=== PATIENT | male | born 1965 | race Caucasian/White ===

== ENCOUNTER 2017-09-21 15:30 | Inpatient (IN) | payer OTHER ==
[~2017-09-21] VITALS: Ht 182.9 cm; Wt 114.4 kg
[2017-09-21 15:54] VITALS: BP 115/82; PULSE 130; RESP 17; TEMP 100.3; O2SAT 100
[2017-09-21 15:55] VITALS: O2SAT 98
[2017-09-21] MEDS ORDERED: DILTIAZEM HCL 25 MG/5 ML VIAL IV PUSH ONE (17:00)
[2017-09-21] MEDS ORDERED: LORazepam 2 MG/ML VIAL IV PUSH ONE (17:15)
--- NOTE | 2017-09-21 17:43 | RADRPT ---
EXAM DATE/TIME: 09/21/2017 17:29 [facility] COMPARISON: No previous studies available for comparison. INDICATIONS : Palpitations. MEDICAL HISTORY : A-fib. SURGICAL HISTORY : None. ENCOUNTER: Initial ACUITY: 1 day PAIN SCORE: Non-responsive. LOCATION: Bilateral chest FINDINGS: There is mild streaky parenchymal opacity at the left lung base. Right lung is grossly clear. Cardiac contours are satisfactory for technique and projection. CONCLUSION: Mild left base parenchymal opacity Tien Narvaez MD on September 21, 2017 at 17:42 Board Certified Radiologist. This report was verified electronically.
[2017-09-21] MEDS: DILTIAZEM INJ 125 MG in SODIUM CHLORIDE 0.9% INJ 100 ML IV PRN (17:46)
[2017-09-21 17:52] LABS: AUTOMATED NEUTROPHIL # 6.6 TH/MM3 (1.8-7.7); BASOPHIL # 0.1 TH/MM3 (0-0.2); BASOPHIL % 0.8 % (0.0-2.0); EOSINOPHIL % 0.3 % (0.0-4.0); HEMATOCRIT 33.6 % (39.0-51.0); HEMOGLOBIN 11.6 GM/DL (13.0-17.0); LYMPH % 15.2 % (9.0-44.0); LYMPHOCYTE # 1.4 TH/MM3 (1.0-4.8); MEAN CELL VOLUME 106.6 FL (80.0-100.0); MEAN CORPUSCULAR HEMOGLOBIN 36.8 PG (27.0-34.0); MEAN CORPUSCULAR HGB CONC 34.6 % (32.0-36.0); MONO % 13.8 % (0.0-8.0); MONOCYTE # 1.3 TH/MM3 (0-0.9); NEUT % 69.9 % (16.0-70.0); PLATELET COUNT 176 TH/MM3 (150-450); RED BLOOD COUNT 3.16 MIL/MM3 (4.50-5.90); RED CELL DISTRIBUTION WIDTH 19.6 % (11.6-17.2); WHITE BLOOD COUNT 9.4 TH/MM3 (4.0-11.0)
[2017-09-21 18:02] LABS: INTERNATIONAL NORMALIZED RATIO 1.3 RATIO
[2017-09-21 18:05] LABS: ALT (GPT) 106 U/L (12-78)
[2017-09-21 18:07] VITALS: BP 110/71; PULSE 78; RESP 17; O2SAT 98
[2017-09-21] MEDS ORDERED: NICOTINE 21 MG/24 HR PATCH T-DERMAL ONE (18:30)
[2017-09-21] MEDS ORDERED: ALUMINUM/MAGNESIUM/SIMETH 30 ML CUP PO ONE (19:00)
[2017-09-21 19:02] LABS: AST (GOT) 142 U/L (15-37); BICARBONATE 21.5 MEQ/L (21.0-32.0); BLOOD UREA NITROGEN 14 MG/DL (7-18); CALCIUM 7.9 MG/DL (8.5-10.1); CHLORIDE 99 MEQ/L (98-107); CREATININE 0.99 MG/DL (0.60-1.30); GLOMERULAR FILTRATION RATE 79 ML/MIN (>89); GLUCOSE,RANDOM 119 MG/DL (74-106); SODIUM (NA) 129 MEQ/L (136-145)
--- NOTE | 2017-09-21 19:12 | PD ---
Physical Exam Date Seen by Provider: Sep 21, 2017 Time Seen by Provider: 19:10 Narrative Accepted in transfer of care from Dr. Jones Data Data Last Documented VS Vital Signs Date Time Temp Pulse Resp B/P (MAP) Pulse Ox O2 Delivery O2 Flow Rate FiO2 09/21/17 18:07 78 17 110/71 (84) 98 Room Air 09/21/17 15:54 100.3 Orders Orders Complete Blood Count With Diff (09/21/17 16:59) Comprehensive Metabolic Panel (09/21/17 16:59) Ckmb (Isoenzyme) Profile (09/21/17 16:59) Troponin I (09/21/17 16:59) Prothrombin Time / Inr (Pt) (09/21/17 16:59) Act Partial Throm Time (Ptt) (09/21/17 16:59) Urinalysis - C+S If Indicated (09/21/17 16:59) Thyroid Stimulating Hormone (09/21/17 16:59) Chest, Single Ap (09/21/17 16:59) Iv Access Insert/Monitor (09/21/17 16:59) Ecg Monitoring (09/21/17 16:59) Oximetry (09/21/17 16:59) Diltiazem Inj (Cardizem Inj) (09/21/17 17:00) Diltiazem Inj (Cardizem Inj) (09/21/17 17:00) Diet Heart Healthy (09/21/17 Dinner) Lorazepam Inj (Ativan Inj) (09/21/17 17:15) Electrocardiogram (09/21/17 16:35) Nicotine 21 Mg Patch.24 Hr (Habitrol 21 (09/21/17 18:30) Al-Mag Hy-Si 40-40-4 Mg/Ml Liq (Mag-Al P (09/21/17 19:00) Labs Laboratory Tests Test 09/21/17 17:00 09/21/17 18:30 White Blood Count 9.4 TH/MM3 Red Blood Count 3.16 MIL/MM3 Hemoglobin 11.6 GM/DL Hematocrit 33.6 % Mean Corpuscular Volume 106.6 FL Mean Corpuscular Hemoglobin 36.8 PG Mean Corpuscular Hemoglobin Concent 34.6 % Red Cell Distribution Width 19.6 % Platelet Count 176 TH/MM3 Mean Platelet Volume 10.0 FL Neutrophils (%) (Auto) 69.9 % Lymphocytes (%) (Auto) 15.2 % Monocytes (%) (Auto) 13.8 % Eosinophils (%) (Auto) 0.3 % Basophils (%) (Auto) 0.8 % Neutrophils # (Auto) 6.6 TH/MM3 Lymphocytes # (Auto) 1.4 TH/MM3 Monocytes # (Auto) 1.3 TH/MM3 Eosinophils # (Auto) 0.0 TH/MM3 Basophils # (Auto) 0.1 TH/MM3 CBC Comment DIFF FINAL Differential Comment Prothrombin Time 13.0 SEC Prothromb Time International Ratio 1.3 RATIO Activated Partial Thromboplast Time 25.0 SEC Blood Urea Nitrogen 14 MG/DL Creatinine 0.99 MG/DL Random Glucose 119 MG/DL Albumin 2.0 GM/DL Calcium Level 7.9 MG/DL Aspartate Amino Transf (AST/SGOT) 142 U/L Alanine Aminotransferase (ALT/SGPT) 106 U/L Sodium Level 129 MEQ/L Potassium Level 3.9 MEQ/L Chloride Level 99 MEQ/L Carbon Dioxide Level 21.5 MEQ/L Anion Gap 9 MEQ/L Estimat Glomerular Filtration Rate 79 ML/MIN [facility] Medical Record Reviewed: Yes Supervised Visit with NORY: No Differential Diagnosis Accepted in transfer of care from Dr. Jones; please refer to his dictation Narrative Course Accepted in transfer of care from Dr. Jones; follow up pending labs abd admission for AFRVR , diltiazem infusion, non-compliance, alcohol use Scripts Unable to Obtain Active Prescriptions or Reported Meds Patrica Murphy MD Sep 21, 2017 19:12
[2017-09-21 19:14] LABS: ALKALINE PHOSPHATASE 174 U/L (45-117)
[2017-09-21 19:15] LABS: TOTAL BILIRUBIN ADULT 7.4 MG/DL (0.2-1.0); TOTAL PROTEIN 6.4 GM/DL (6.4-8.2); TROPONIN I LESS THAN 0.02 NG/ML (0.02-0.05)
--- NOTE | 2017-09-21 19:33 | PD ---
HPI Chief Complaint: Cardiac Complaint Time Seen by Provider: 16:59 Travel History International Travel<30 days: No Contact w/Intl Traveler<30days: No Traveled to known affect area: No History of Present Illness HPI 51-year-old male with history of atrial fibrillation, alcohol abuse, presents here via EMS at the request of his son from the [facility] for A. fib with RVR. The patient denies any chest pain, chest pressure. Patient states he has been taking his medications as prescribed. When son arrived here in the emergency primary, he reports that his father resides in [place]. He states that he went up to see him and found him to be doing not well and was drinking heavily. He states that he packed all of his belongings up and moved him down here to [place]. There have been evaluated at the ID clinic when he was told that he had atrial fibrillation with rapid ventricular response. Patient denies any chest pain, chest pressure. There is no reported shortness of breath. He apparently has been drinking 2 or 3 beers daily for the last for 5 days. Son states that he was drinking up to 30 beers daily prior to that. [facility] Social History Alcohol Use: Yes Tobacco Use: Yes Substance Use: No Allergies-Medications (Allergen,Severity, Reaction): Coded Allergies: fentanyl (Verified Allergy, Mild, 09/21/17) Reported Meds & Prescriptions Reported Meds & Active Scripts Active Active Prescriptions or Reported Medications Unobtainable Review of Systems Except as stated in HPI: all other systems reviewed are Neg General / Constitutional: No: Fever, Chills HENT: No: Headaches, Lightheadedness, Neck Pain Cardiovascular: Positive: Palpitations, Irregular Rhythm, No: Chest Pain or Discomfort Respiratory: Positive: Cough, No: Shortness of Breath Gastrointestinal: No: Nausea, Vomiting, Abdominal Pain Genitourinary: No: Dysuria, Decreased Urinary Output Musculoskeletal: No: Weakness, Pain Neurologic: No: Weakness, Dizziness, Headache Psychiatric: Positive: Substance Abuse (Alcohol abuse) Physical Exam Narrative GENERAL: Well-developed well-nourished male in no acute respiratory distress. SKIN: Focused skin assessment warm/dry. HEAD: Atraumatic. Normocephalic. EYES: Pupils equal and round. Trace scleral icterus. No injection or drainage. ENT: No nasal bleeding or discharge. Mucous membranes pink and moist. NECK: Trachea midline. Supple. CARDIOVASCULAR: Irregularly irregular with a rate ranging from the 120s to the 140s. No obvious murmur appreciated. RESPIRATORY: No accessory muscle use. Clear to auscultation. Breath sounds equal bilaterally. GASTROINTESTINAL: Abdomen soft, non-tender, nondistended. Hepatic and splenic margins not palpable. MUSCULOSKELETAL: No obvious deformities. No clubbing. No cyanosis. No edema. NEUROLOGICAL: Awake and alert. No obvious cranial nerve deficits. Motor grossly within normal limits. Normal speech. Data Data Last Documented VS Vital Signs Date Time Temp Pulse Resp B/P (MAP) Pulse Ox O2 Delivery O2 Flow Rate FiO2 09/21/17 18:07 78 17 110/71 (84) 98 Room Air 09/21/17 15:54 100.3 Orders Orders Complete Blood Count With Diff (09/21/17 16:59) Comprehensive Metabolic Panel (09/21/17 16:59) Ckmb (Isoenzyme) Profile (09/21/17 16:59) Troponin I (09/21/17 16:59) Prothrombin Time / Inr (Pt) (09/21/17 16:59) Act Partial Throm Time (Ptt) (09/21/17 16:59) Urinalysis - C+S If Indicated (09/21/17 16:59) Thyroid Stimulating Hormone (09/21/17 16:59) Chest, Single Ap (09/21/17 16:59) Iv Access Insert/Monitor (09/21/17 16:59) Ecg Monitoring (09/21/17 16:59) Oximetry (09/21/17 16:59) Diltiazem Inj (Cardizem Inj) (09/21/17 17:00) Diltiazem Inj (Cardizem Inj) (09/21/17 17:00) Diet Heart Healthy (09/21/17 Dinner) Lorazepam Inj (Ativan Inj) (09/21/17 17:15) Electrocardiogram (09/21/17 16:35) Nicotine 21 Mg Patch.24 Hr (Habitrol 21 (09/21/17 18:30) Al-Mag Hy-Si 40-40-4 Mg/Ml Liq (Mag-Al P (09/21/17 19:00) Labs Laboratory Tests Test 09/21/17 17:00 09/21/17 18:30 White Blood Count 9.4 TH/MM3 Red Blood Count 3.16 MIL/MM3 Hemoglobin 11.6 GM/DL Hematocrit 33.6 % Mean Corpuscular Volume 106.6 FL Mean Corpuscular Hemoglobin 36.8 PG Mean Corpuscular Hemoglobin Concent 34.6 % Red Cell Distribution Width 19.6 % Platelet Count 176 TH/MM3 Mean Platelet Volume 10.0 FL Neutrophils (%) (Auto) 69.9 % Lymphocytes (%) (Auto) 15.2 % Monocytes (%) (Auto) 13.8 % Eosinophils (%) (Auto) 0.3 % Basophils (%) (Auto) 0.8 % Neutrophils # (Auto) 6.6 TH/MM3 Lymphocytes # (Auto) 1.4 TH/MM3 Monocytes # (Auto) 1.3 TH/MM3 Eosinophils # (Auto) 0.0 TH/MM3 Basophils # (Auto) 0.1 TH/MM3 CBC Comment DIFF FINAL Differential Comment Prothrombin Time 13.0 SEC Prothromb Time International Ratio 1.3 RATIO Activated Partial Thromboplast Time 25.0 SEC Blood Urea Nitrogen 14 MG/DL Creatinine 0.99 MG/DL Random Glucose 119 MG/DL Total Protein 6.4 GM/DL Albumin 2.0 GM/DL Calcium Level 7.9 MG/DL Alkaline Phosphatase 174 U/L Aspartate Amino Transf (AST/SGOT) 142 U/L Alanine Aminotransferase (ALT/SGPT) 106 U/L Total Bilirubin 7.4 MG/DL Sodium Level 129 MEQ/L Potassium Level 3.9 MEQ/L Chloride Level 99 MEQ/L Carbon Dioxide Level 21.5 MEQ/L Anion Gap 9 MEQ/L Estimat Glomerular Filtration Rate 79 ML/MIN Total Creatine Kinase 53 U/L Troponin I LESS THAN 0.02 NG/ML Thyroid Stimulating Hormone 3rd Gen 3.500 uIU/ML [facility] Medical Decision Making Medical Screen Exam Complete: Yes Emergency Medical Condition: Yes Differential Diagnosis A. fib with RVR versus alcohol withdrawal versus metabolic derangement. Narrative Course 51-year-old male with a history of alcoholism, atrial fibrillation, presents here with his son for A. fib with RVR. The patient has recently moved down here for 5 days ago with his son from [place]. [facility] A. [facility] with RVR. He has been placed on a diltiazem drip. His electrolytes are pending at this time. EKG showed A. fib with RVR. The patient was signed out to Dr. Murphy, physician replaced me at change of shift. The patient will need admission. He has been given Ativan 2 mg 1 dose. He is also been given a nicotine patch because he is a smoker. Diagnosis Primary Impression: Atrial fibrillation with rapid ventricular response Additional Impressions: History of alcohol abuse History of tobacco use Scripts Unable to Obtain Active Prescriptions or Reported Meds Mike Jones MD Sep 21, 2017 19:33
[2017-09-21 19:41] VITALS: BP 124/77; PULSE 98; RESP 18; O2SAT 98
[2017-09-21] MEDS ORDERED: CLON1 PO (19:43)
[2017-09-21] MEDS ORDERED: CYMB60CA PO (19:43)
[2017-09-21] MEDS ORDERED: FLUMAZENIL 0.5 MG/5 ML VIAL IV PUSH PRN (20:45)
[2017-09-21] MEDS ORDERED: LORazepam 2 MG TAB PO PRN (20:45)
[2017-09-21] MEDS ORDERED: LORazepam 2 MG/ML VIAL IV PUSH PRN ×4 (20:45)
[2017-09-21] MEDS ORDERED: ACETAMINOPHEN 325 MG TAB PO PRN (21:00)
[2017-09-21] MEDS ORDERED: SODIUM CHLORIDE 0.9% FLUSH 10 ML FLUSH IV FLUSH PRN (21:00)
[2017-09-21] MEDS ORDERED: ONDANSETRON HCL 4 MG/2 ML VIAL IVP PRN (21:00)
[2017-09-21] MEDS: SODIUM CHLORIDE 0.9% FLUSH 10 ML FLUSH IV FLUSH SCH (21:00)
[2017-09-21] MEDS ORDERED: NALOXONE HCL 0.4 MG/ML AMP IV PUSH PRN (21:00)
[2017-09-21] MEDS: LORazepam 1 MG TAB PO PRN (22:01)
[2017-09-21] MEDS: HEPARIN SODIUM - SQ 10,000 UNITS/ML VIAL SQ SCH (22:46)
[2017-09-21] MEDS: THIAMINE HCL 100 MG TAB PO SCH (22:46)
[2017-09-21 23:00] VITALS: BP 138/86; PULSE 90; PULSE 93; RESP 17; TEMP 97.8; O2SAT 95
[2017-09-22] VITALS (23 sets, daily range): BP systolic 116–145; BP diastolic 83–93; PULSE 81–104; RESP 18; TEMP 98.2–98.6; O2SAT 99–100
--- NOTE | 2017-09-22 00:58 | HHI.HP ---
HPI Service [facility] Hospitalists Primary Care Physician [facility] Admission Diagnosis AFRVR; alcoholism; alcohol hepatitis Diagnoses: Travel History International Travel<30 Days: No Contact w/Intl Traveler <30 Da: No Traveled to Known Affected Are: No History of Present Illness Male with past medical history significant for atrial fibrillation, not currently on anticoagulation, and anxiety who presents to the emergency department for further evaluation. The patient was seen in the [place] where he was found to be in atrial fibrillation with rapid ventricular response and sent to [place] emergency department for further treatment. Per the patient, he was seen at the [place] for evaluation of 2 weeks of weakness. He endorses associated dizziness. Positive palpitations. Also complains of accompanying shortness of breath. Complains of heartburn. Denies nausea/vomiting. Denies episodes of diaphoresis. Denies lateralizing signs/symptoms. Review of Systems Except as stated in HPI: all other systems reviewed are Neg Past Family Social History Past Medical History Atrial fibrillation (patient is a poor historian however he is not currently anticoagulated secondary to noncompliance?) Alcohol abuse Anxiety Past Surgical History Bilateral hip replacement Right knee replacement Reported Medications Reported Meds & Active Scripts Active Reported Klonopin (Clonazepam) 1 Mg Tab 1 Mg PO TID Cymbalta DR (Duloxetine HCl) 60 Mg Capdr Unknown Dose PO DAILY Allergies: Coded Allergies: fentanyl (Verified Allergy, Mild, 09/21/17) Family History Both parents with diabetes and coronary artery disease Social History Smokes approximately one pack per day. Drinks approximately 3-4 beers daily. Denies illicit drugs. Physical Exam Vital Signs Vital Signs Date Time Temp Pulse Resp B/P (MAP) Pulse Ox O2 Delivery O2 Flow Rate FiO2 09/21/17 23:00 97.8 93 17 138/86 (103) 95 09/21/17 19:41 98 18 124/77 (93) 98 Room Air 09/21/17 18:07 78 17 110/71 (84) 98 Room Air 09/21/17 17:46 135 127/80 09/21/17 16:20 130 98 Room Air 09/21/17 15:55 98 Room Air 09/21/17 15:54 100.3 130 17 115/82 (03) 100 Physical Exam GENERAL: male lying in bed SKIN: No rashes, ecchymoses or lesions. Cool and dry. Jaundiced. HEAD: Atraumatic. Normocephalic. No temporal or scalp tenderness. EYES: Pupils equal round and reactive. Extraocular motions intact. + scleral icterus. No injection or drainage. ENT: Nose without bleeding, purulent drainage or septal hematoma. Throat without erythema, tonsillar hypertrophy or exudate. Uvula midline. Airway patent. NECK: Trachea midline. No JVD or lymphadenopathy. Supple, nontender, no meningeal signs. CARDIOVASCULAR: Regular rate and rhythm without murmurs, gallops, or rubs. RESPIRATORY: Clear to auscultation. Breath sounds equal bilaterally. No wheezes , rales, or rhonchi. GASTROINTESTINAL: Abdomen soft, non-tender, nondistended. No hepato-splenomegaly , or palpable masses. No guarding. MUSCULOSKELETAL: Extremities without clubbing, cyanosis, or edema. No joint tenderness, effusion, or edema noted. No calf tenderness. NEUROLOGICAL: Awake and alert. Cranial nerves II through XII intact. Motor and sensory grossly within normal limits. Normal speech. Laboratory Laboratory Tests Test 09/21/17 17:00 09/21/17 18:30 09/22/17 00:27 White Blood Count 9.4 Red Blood Count 3.16 Hemoglobin 11.6 Hematocrit 33.6 Mean Corpuscular Volume 106.6 Mean Corpuscular Hemoglobin 36.8 Mean Corpuscular Hemoglobin Concent 34.6 Red Cell Distribution Width 19.6 Platelet Count 176 Mean Platelet Volume 10.0 Neutrophils (%) (Auto) 69.9 Lymphocytes (%) (Auto) 15.2 Monocytes (%) (Auto) 13.8 Eosinophils (%) (Auto) 0.3 Basophils (%) (Auto) 0.8 Neutrophils # (Auto) 6.6 Lymphocytes # (Auto) 1.4 Monocytes # (Auto) 1.3 Eosinophils # (Auto) 0.0 Basophils # (Auto) 0.1 CBC Comment DIFF FINAL Differential Comment Prothrombin Time 13.0 Prothromb Time International Ratio 1.3 Activated Partial Thromboplast Time 25.0 Blood Urea Nitrogen 14 Creatinine 0.99 Random Glucose 119 Total Protein 6.4 Albumin 2.0 Calcium Level 7.9 Alkaline Phosphatase 174 Aspartate Amino Transf (AST/SGOT) 142 Alanine Aminotransferase (ALT/SGPT) 106 Total Bilirubin 7.4 Sodium Level 129 Potassium Level 3.9 Chloride Level 99 Carbon Dioxide Level 21.5 Anion Gap 9 Estimat Glomerular Filtration Rate 79 Total Creatine Kinase 53 Troponin I LESS THAN 0.02 Thyroid Stimulating Hormone 3rd Gen 3.500 Result Diagram: 09/21/17 1700 09/21/17 1830 Caprini VTE Risk Assessment Caprini VTE Risk Assessment: No/Low Risk (score <= 1) Caprini Risk Assessment Model Point Value = 1 Point Value = 2 Point Value = 3 Point Value = 5 Age 41-60 Minor surgery BMI > 25 kg/m2 Swollen legs Varicose veins or History of unexplained or recurrent spontaneous Oral contraceptives or hormone replacement Sepsis (< 1 month) Serious lung disease, including pneumonia (< 1 month) Abnormal pulmonary function Acute myocardial infarction Congestive heart failure (< 1 month) History of inflammatory bowel disease Medical patient at bed rest Age 61-74 Arthroscopic surgery Major open surgery (> 45 min) Laparoscopic surgery (> 45 min) Malignancy Confined to bed (> 72 hours) Immobilizing plaster cast Central venous access Age >= 75 History of VTE Family history of VTE Factor V Leiden Prothrombin [id number] Lupus anticoagulant Anticardiolipin antibodies Elevated serum homocysteine Heparin-induced thrombocytopenia Other congenital or acquired thrombophilia Stroke (< 1 month) Elective arthroplasty Hip, pelvis, or leg fracture Acute spinal cord injury (< 1 month) Prophylaxis Regimen Total Risk Factor Score Risk Level Prophylaxis Regimen 0-1 Low Early ambulation 2 Moderate Order ONE of the following: *Sequential Compression Device (SCD) *Heparin 5000 units SQ BID 3-4 Higher Order ONE of the following medications: *Heparin 5000 units SQ TID *Enoxaparin/Lovenox 40 mg SQ daily (WT < 150 kg, CrCl > 30 mL/min) *Enoxaparin/Lovenox 30 mg SQ daily (WT < 150 kg, CrCl > 10-29 mL/min) *Enoxaparin/Lovenox 30 mg SQ BID (WT < 150 kg, CrCl > 30 mL/min) AND/OR *Sequential Compression Device (SCD) 5 or more Highest Order ONE of the following medications: *Heparin 5000 units SQ TID (Preferred with Epidurals) *Enoxaparin/Lovenox 40 mg SQ daily (WT < 150 kg, CrCl > 30 mL/min) *Enoxaparin/Lovenox 30 mg SQ daily (WT < 150 kg, CrCl > 10-29 mL/min) *Enoxaparin/Lovenox 30 mg SQ BID (WT < 150 kg, CrCl > 30 mL/min) AND *Sequential Compression Device (SCD) Assessment and Plan Assessment and Plan Assessment/plan: 1. Atrial fibrillation with rapid ventricular response Patient reports he is not on anticoagulation or medications for his atrial fibrillation secondary to noncompliance Diltiazem drip Wean drip as tolerated; transition to by mouth ACS rule out pending 2. Jaundice/transaminitis Patient likely has underlying liver disease Unclear etiology May be from alcohol abuse versus obstructive pathology CT of the abdomen/pelvis pending Monitor CMP 3. Anxiety Holding home Klonopin/Cymbalta as it is unclear as to when patient last took his home medications 4. Alcohol abuse Thiamine/folate/multivitamin CIWA protocol Monitor for signs of withdrawal FEN Heart healthy diet Electrolytes: Monitor and replete when necessary Heparin Physician Certification 2 Midnight Certification Type: Admission for Inpatient Services Order for Inpatient Services The services are ordered in accordance with Medicare regulations or non- Medicare payer requirements, as applicable. In the case of services not specified as inpatient-only, they are appropriately provided as inpatient services in accordance with the 2-midnight benchmark. Estimated LOS (days): 2 2 days is the estimated time the patient will need to remain in the hospital, assuming treatment plan goals are met and no additional complications. Post-Hospital Plan: Not yet determined Farhana Bliss MD Sep 22, 2017 00:58
[2017-09-22 01:01] LABS: TROPONIN I LESS THAN 0.02 NG/ML (0.02-0.05)
[2017-09-22] MEDS ORDERED: TEMAZEPAM 7.5 MG CAP PO ONE (01:15)
[2017-09-22] MEDS ORDERED: EPINEPHrine HCL (1:10,000) 1 MG/10 ML SYRINGE ONE (02:59)
[2017-09-22] MEDS ORDERED: ATROPINE SULFATE 1 MG/10 ML SYRINGE ONE (03:01)
--- NOTE | 2017-09-22 04:27 | RADRPT ---
EXAM DATE/TIME: 09/22/2017 03:08 [facility] COMPARISON: No previous studies available for comparison. INDICATIONS : Abdomen pain. ORAL CONTRAST: No oral contrast ingested. RADIATION DOSE: 12.14 CTDIvol (mGy) MEDICAL HISTORY : Cardiovascular disease. Hypertension. SURGICAL HISTORY : Inguinal hernia repair. Back, hip. ENCOUNTER: Initial ACUITY: 1 day PAIN SCALE: 5/10 LOCATION: Bilateral abdomen. TECHNIQUE: Volumetric scanning of the abdomen and pelvis was performed. Using automated exposure control and ad justment of the mA and/or kV according to patient size, radiation dose was kept as low as reasonably achievable to obtain optimal diagnostic quality images. DICOM format image data is available electro nically for review and comparison. FINDINGS: LOWER LUNGS: The visualized lower lungs are clear. LIVER: Liver demonstrates uniform density without significant volume loss or intrahepatic ductal dilatation. Gallbladder is grossly unremarkable by CT. SPLEEN: Normal size without lesion. PANCREAS: Within normal limits. KIDNEYS: Normal in size and shape. There is no mass, stone, or hydronephrosis. ADRENAL GLANDS: Within normal limits. VASCULAR: There is no aortic aneurysm. BOWEL/MESENTERY: The stomach, small bowel, and colon demonstrate no acute abnormality. There is a small amount of asc ites. There is no free air or focal fluid collections. Several slightly prominent central mesenteric nodes the largest measuring up to 1 cm. ABDOMINAL WALL: Within normal limits. RETROPERITONEUM: There is no lymphadenopathy. BLADDER: Largely obscured by beam artifact. REPRODUCTIVE: Obscured by beam artifact. INGUINAL: There is no lymphadenopathy or hernia. MUSCULOSKELETAL: Bilateral hip arthroplasties. No abnormal lytic or blastic bony lesions. CONCLUSION: 1. Small amount of ascites. Etiology is unclear. The liver is unremarkable although it is incompletel y evaluated due to lack of contrast. 2. Nonspecific central mesenteric adenopathy measuring up to 1.1 cm. 3. Otherwise, no acute abnormality is demonstrated on this nonenhanced examination. Kenny Dee MD on September 22, 2017 at 4:17 Board Certified Radiologist. This report was verified electronically.
[2017-09-22] MEDS: HEPARIN SODIUM - SQ 10,000 UNITS/ML VIAL SQ SCH ×3 (05:45→21:10)
[2017-09-22 06:19] LABS: BACTERIA, URINE RARE /hpf; BILIRUBIN, URINE MOD (NEG); BLOOD, URINE SMALL (NEG); GLUCOSE,URINE NEG (NEG); KETONE, URINE NEG (NEG); MUCUS URINE FEW /lpf (OCC); NITRITE,URINE NEG (NEG); SQUAMOUS EPITHELIAL CELL URINE 1 /hpf (0-5); URINE COLOR DARK-BROWN (YELLW/STRAW); URINE LEUKOCYTE ESTERASE NEG (NEG)
[2017-09-22 06:32] LABS: AUTOMATED NEUTROPHIL # 5.2 TH/MM3 (1.8-7.7); BASOPHIL # 0.1 TH/MM3 (0-0.2); BASOPHIL % 0.8 % (0.0-2.0); EOSINOPHIL % 0.4 % (0.0-4.0); HEMATOCRIT 27.9 % (39.0-51.0); HEMOGLOBIN 9.7 GM/DL (13.0-17.0); LYMPH % 18.1 % (9.0-44.0); LYMPHOCYTE # 1.4 TH/MM3 (1.0-4.8); MEAN CELL VOLUME 104.6 FL (80.0-100.0); MEAN CORPUSCULAR HEMOGLOBIN 36.4 PG (27.0-34.0); MEAN CORPUSCULAR HGB CONC 34.8 % (32.0-36.0); MEAN PLATELET VOLUME 9.5 FL (7.0-11.0); MONO % 14.8 % (0.0-8.0); MONOCYTE # 1.2 TH/MM3 (0-0.9); NEUT % 65.9 % (16.0-70.0); PLATELET COUNT 157 TH/MM3 (150-450); RED BLOOD COUNT 2.66 MIL/MM3 (4.50-5.90); RED CELL DISTRIBUTION WIDTH 19.2 % (11.6-17.2); WHITE BLOOD COUNT 7.9 TH/MM3 (4.0-11.0)
[2017-09-22 06:56] LABS: ALBUMIN 1.8 GM/DL (3.4-5.0); ALT (GPT) 76 U/L (12-78); AST (GOT) 112 U/L (15-37); BICARBONATE 24.6 MEQ/L (21.0-32.0); BLOOD UREA NITROGEN 14 MG/DL (7-18); CALCIUM 7.6 MG/DL (8.5-10.1); CHLORIDE 100 MEQ/L (98-107); CREATININE 0.76 MG/DL (0.60-1.30); GLOMERULAR FILTRATION RATE 107 ML/MIN (>89); GLUCOSE,RANDOM 92 MG/DL (74-106); SODIUM (NA) 132 MEQ/L (136-145)
[2017-09-22 07:01] LABS: ALKALINE PHOSPHATASE 147 U/L (45-117); TOTAL PROTEIN 5.8 GM/DL (6.4-8.2); TROPONIN I LESS THAN 0.02 NG/ML (0.02-0.05)
[2017-09-22] MEDS: MULTIVITAMIN TAB PO SCH (09:24)
[2017-09-22] MEDS: THIAMINE HCL 100 MG TAB PO SCH (09:24)
[2017-09-22] MEDS: FOLIC ACID 1 MG TAB PO SCH (09:24)
[2017-09-22] MEDS: SODIUM CHLORIDE 0.9% FLUSH 10 ML FLUSH IV FLUSH SCH ×2 (09:25→21:11)
[2017-09-22] MEDS: DILTIAZEM INJ 125 MG in SODIUM CHLORIDE 0.9% INJ 100 ML IV PRN (17:00)
--- NOTE | 2017-09-22 17:19 | RADRPT ---
EXAM DATE/TIME: 09/22/2017 13:52 This report includes an Addendum and supersedes previous reports for this exam. [facility] COMPARISON: CT ABDOMEN & PELVIS W/O CONTRAST, September 22, 2017, 3:08. INDICATIONS : Abdominal pain and jaundice. Alcohol use. DOSE: 4.0 mCi Tc99m Mebrofenin IV MEDICAL HISTORY : Hypertension. Jaundice. Cardiovascular disease. Smoker. SURGICAL HISTORY : Umbilical hernia repair. ENCOUNTER: Initial ACUITY: 1 day PAIN SCALE: 7/10 LOCATION: Bilateral upper quadrant TECHNIQUE: Following the intravenous administration of radiotracer, dynamic sequential images were performed wit h continuous acquisition. FINDINGS: HEPATIC KINETICS: There is prompt uptake of radiotracer in the liver. No focal defects are seen. There is normal rate of washout from the hepatic parenchyma. BILIARY CLEARANCE: Activity is first seen in the extrahepatic biliary system at 5 minutes. There is normal excretion in to the small bowel. GALLBLADDER: The gallbladder is not identified. The patient will return for delayed imaging. BILIARY ENTRIC REFLUX: None observed. CONCLUSION: Nonvisualization of the gallbladder which may reflect acute cholecystitis. Delayed imaging is to be p erformed. Reid Whitmore MD on September 22, 2017 at 17:14 Board Certified Radiologist. This report was verified electronically. ADDENDUM: Delayed imaging is obtained but no definite activity is identified within the gallbladder. Therefore, cystic duct obstruction is not excluded. Tien Donato MD on September 23, 2017 at 9:09 Board Certified Radiologist. This report was verified electronically.
[2017-09-22] MEDS: clonazePAM 1 MG TAB PO SCH (17:45)
--- NOTE | 2017-09-22 19:09 | ECHRPT ---
Indication: ATRIAL FLUTTER/FIB CONCLUSIONS Normal left ventricular size. Mild concentric left ventricular hypertrophy. The left ventricular systolic function is mildly reduced with an estimated ejection fraction in the range of 45- 50%. The right ventricular size is normal. The left atrial size is mildly dilated. The right atrial size is hvej-or-ldmlognrhl dilated. Moderate mitral valve regurgitation. Aortic valve sclerosis is present. Trace aortic valve regurgitation. BP: 127 / 88 HR: 90 Rhythm: Atrial fibrillation, Atrial flut ter MEASUREMENTS (Male / Female) Normal Values Technical Quality:Fair 2D ECHO LV Diastolic Diameter PLAX 5.4 cm 4.2 - 5.9 / 3.9 - 5.3 cm LV Systolic Diameter PLAX 4.4 cm IVS Diastolic Thickness 1.0 cm 0.6 - 1.0 / 0.6 - 0.9 cm LVPW Diastolic Thickness 1.0 cm 0.6 - 1.0 / 0.6 - 0.9 cm LV Relative Wall Thickness 0.4 RV Internal Dim ED PLAX 2.7 cm LVOT Diameter 2.2 cm Aortic Root Diameter 3.3 cm LA Systolic Diameter LX 4.4 cm 3.0 - 4.0 / 2.7 - 3.8 cm M-MODE AV Cusp Separation MM 2.3 cm DOPPLER AV Peak Velocity 110.7 cm/s AV Peak Gradient 4.9 mmHg AV Mean Gradient 2.7 mmHg AV Velocity Time Integral 19.0 cm LVOT Peak Velocity 74.6 cm/s LVOT Peak Gradient 2.2 mmHg LVOT Velocity Time Integral 12.5 cm AV Area Cont Eq vti 2.5 cm AV Area Cont Eq pk 2.6 cm Mitral E Point Velocity 76.1 cm/s Mitral A Point Velocity 68.6 cm/s Mitral E to A Ratio 1.1 LV E' Lateral Velocity 10.0 cm/s Mitral E to LV E' Lateral Ratio 7.6 LV E' Septal Velocity 10.6 cm/s Mitral E to LV E' Septal Ratio 7.2 PV Peak Velocity 54.6 cm/s PV Peak Gradient 1.2 mmHg FINDINGS LEFT VENTRICLE Normal left ventricular size. Mild concentric left ventricular hypertrophy. The left ventricular systolic function is mildly reduced with an estimated ejection fraction in the range of 45- 50%. RIGHT VENTRICLE The right ventricular size is normal. LEFT ATRIUM The left atrial size is mildly dilated. RIGHT ATRIUM The right atrial size is uhxt-dm-soqxbwtaxe dilated. ATRIAL SEPTUM The interatrial septum not well visualized. AORTA The aortic root and proximal ascending aorta are not well visualized. MITRAL VALVE Moderate mitral valve regurgitation. AORTIC VALVE Aortic valve sclerosis is present. Trace aortic valve regurgitation. TRICUSPID VALVE Structurally normal tricuspid valve. No tricuspid regurgitation. PULMONARY VALVE No pulmonary valve regurgitation or stenosis. VESSELS The inferior vena cava was not well visualized. PERICARDIUM No pericardial effusion. Elisa Umanzor MD, FACC (Electronically Signed) Final Date:22 September 2017 19:07
--- NOTE | 2017-09-22 22:44 | EKG ---
Date Performed: 09/21/2017 Time Performed: 16:35:05 PTAGE: 51 years EKG: ATRIAL FIBRILLATION WITH RAPID VENTRICULAR RESPONSE ABNORMAL RHYTHM ECG NO PREVIOUS TRACING DOCTOR: Elisa Umanzor Interpretating Date/Time 09/22/2017 22:42:06
[2017-09-22] MEDS: LORazepam 1 MG TAB PO PRN (23:32)
[2017-09-23] VITALS (25 sets, daily range): BP systolic 113–140; BP diastolic 68–91; PULSE 64–104; RESP 18–20; TEMP 97.3–99; O2SAT 97–100
[2017-09-23] MEDS: HEPARIN SODIUM - SQ 10,000 UNITS/ML VIAL SQ SCH ×3 (05:07→22:28)
[2017-09-23 05:58] LABS: BASOPHIL # 0.1 TH/MM3 (0-0.2); BASOPHIL % 0.7 % (0.0-2.0); EOSINOPHIL # 0.1 TH/MM3 (0-0.4); EOSINOPHIL % 0.9 % (0.0-4.0); HEMATOCRIT 28.7 % (39.0-51.0); HEMOGLOBIN 9.8 GM/DL (13.0-17.0); LYMPH % 23.9 % (9.0-44.0); LYMPHOCYTE # 1.9 TH/MM3 (1.0-4.8); MEAN CELL VOLUME 105.3 FL (80.0-100.0); MEAN CORPUSCULAR HEMOGLOBIN 36.1 PG (27.0-34.0); MEAN CORPUSCULAR HGB CONC 34.3 % (32.0-36.0); MEAN PLATELET VOLUME 9.5 FL (7.0-11.0); MONO % 12.1 % (0.0-8.0); NEUT % 62.4 % (16.0-70.0); PLATELET COUNT 172 TH/MM3 (150-450); RED BLOOD COUNT 2.72 MIL/MM3 (4.50-5.90); RED CELL DISTRIBUTION WIDTH 18.9 % (11.6-17.2); WHITE BLOOD COUNT 7.9 TH/MM3 (4.0-11.0)
[2017-09-23 06:30] LABS: ALBUMIN 1.8 GM/DL (3.4-5.0); AST (GOT) 109 U/L (15-37); BLOOD UREA NITROGEN 14 MG/DL (7-18); CALCIUM 7.8 MG/DL (8.5-10.1); CHLORIDE 101 MEQ/L (98-107); CREATININE 0.67 MG/DL (0.60-1.30); GLOMERULAR FILTRATION RATE 124 ML/MIN (>89); GLUCOSE,RANDOM 77 MG/DL (74-106); SODIUM (NA) 134 MEQ/L (136-145)
[2017-09-23 06:37] LABS: ALKALINE PHOSPHATASE 132 U/L (45-117); ALT (GPT) 69 U/L (12-78); TOTAL BILIRUBIN ADULT 5.6 MG/DL (0.2-1.0); TOTAL PROTEIN 5.6 GM/DL (6.4-8.2)
[2017-09-23] MEDS: DULoxetine HCl DR 60 MG CAP PO SCH (08:29)
[2017-09-23] MEDS: FOLIC ACID 1 MG TAB PO SCH (08:29)
[2017-09-23] MEDS: THIAMINE HCL 100 MG TAB PO SCH (08:29)
[2017-09-23] MEDS: MULTIVITAMIN TAB PO SCH (08:29)
[2017-09-23] MEDS: clonazePAM 1 MG TAB PO SCH ×3 (08:29→18:17)
[2017-09-23] MEDS: SODIUM CHLORIDE 0.9% FLUSH 10 ML FLUSH IV FLUSH SCH ×2 (08:30→20:15)
[2017-09-23] MEDS ORDERED: CARD180C5 PO (08:55)
[2017-09-23] MEDS ORDERED: THIAMINE HCL 100 MG TAB PO ONE (09:30)
[2017-09-23] MEDS: DILTIAZEM-CD 180 MG CAP ER PO SCH (09:53)
[2017-09-23 11:57] LABS: CALCIUM-PROTEIN CORRECTED 8.3 MG/DL (8.5-10.1); MAGNESIUM 2.1 MG/DL (1.5-2.5)
[2017-09-23 13:58] LABS: HEPATITIS A AB IGM NEGATIVE (NEGATIVE); HEPATITIS B CORE AB IGM NEGATIVE (NEGATIVE); HEPATITIS B SURFACE ANTIGEN NEGATIVE (NEGATIVE); HEPATITIS C AB IgG NEGATIVE (NEGATIVE)
--- NOTE | 2017-09-23 15:53 | PD.CONS ---
HPI History of Present Illness This is a 51 year old M with medical history significant for a-fib, depression, and ETOH abuse. 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 Pt was seen at the [facility] yesterday for weakness for the past couple weeks was found to be in a-fib RVR and was sent to the ER for further evaluation. Heart rate now controlled, remains irregular. GI has been consulted to evaluate pt for transaminitis and abnormal HIDA scan. Pt reports occasional nausea, worse after eating and then resolves shortly after. States occasional emesis but normally related to his nerves. Denies hematemesis and coffee ground emesis. Also reports some abdominal pain, intermittent, epigastric area, states sometimes when he forgets to eat and other times it starts after eating. Pt denies any constipation, diarrhea, hematochezia, melena , unintentional weight loss. Per son he was previously a heavy drinker, drinking 30 pack of beers a day now thinks he's maybe down to 9 beers a day. Smokes a pack a day. Denies any illicit drug use. HIDA scan done yesterday suggestive of acute cholecystitis. (Luisa Brantley) PFSH Past Medical History Atrial fibrillation (patient is a poor historian however he is not currently anticoagulated secondary to noncompliance?) Alcohol abuse Anxiety Depression Past Surgical History Bilateral hip replacement Right knee replacement (Luisa Brantley) Coded Allergies: fentanyl (Verified Allergy, Mild, 09/21/17) Family History Both parents with diabetes and coronary artery disease Social History Smokes approximately one pack per day. Drinks approximately 9 beers daily. Denies illicit drugs. (Luisa Brantley) Review of Systems Gastrointestinal: COMPLAINS OF: Abdominal pain, Nausea, Vomiting, DENIES: Black stools, Bloody stools, Constipation, Diarrhea, Difficulty Swallowing, Odynophagia, Swelling of Abdomen, Heartburn, Hematemesis (Luisa Brantley) GI Exam Vitals I&O Vital Signs Date Time Temp Pulse Resp B/P (MAP) Pulse Ox O2 Delivery O2 Flow Rate FiO2 09/23/17 13:00 76 09/23/17 12:00 82 09/23/17 11:33 98.8 91 19 126/90 (102) 97 09/23/17 11:31 91 126/90 09/23/17 11:00 71 09/23/17 09:00 70 09/23/17 08:28 99.0 83 18 124/91 (102) 99 09/23/17 08:00 104 09/23/17 07:13 Room Air 09/23/17 07:00 67 09/23/17 06:11 70 09/23/17 05:00 64 09/23/17 04:00 68 09/23/17 03:00 68 09/23/17 02:00 74 09/23/17 01:00 80 09/23/17 00:00 98.2 80 18 119/68 (85) 100 09/23/17 00:00 Room Air 09/23/17 00:00 100 09/23/17 00:00 94 09/22/17 23:00 92 09/22/17 22:00 88 09/22/17 21:00 94 09/22/17 20:00 94 09/22/17 20:00 98.4 92 18 127/93 (104) 99 09/22/17 20:00 Room Air 09/22/17 19:00 104 09/22/17 18:00 84 09/22/17 17:00 102 09/22/17 17:00 98.6 90 18 145/92 (109) 99 09/22/17 17:00 96 145/92 I/O 09/22/17 09/22/17 09/22/17 09/23/17 09/23/17 09/23/17 07:00 15:00 23:00 07:00 15:00 23:00 Intake Total 720 ml 845 ml 480 ml Output Total 550 ml 530 ml Balance 170 ml 315 ml 480 ml Intake Oral 720 ml 720 ml 480 ml IV Total 125 ml Output Urine Total 550 ml 530 ml # Voids 3 # Bowel Movements 0 Imaging Last Impressions Hepatobiliary Scan Nuclear Medicine 09/22/17 0000 Signed Impressions: Service Date/Time: Friday, September 22, 2017 13:52 - CONCLUSION: Nonvisualization of the gallbladder which may reflect acute cholecystitis. Delayed imaging is to be performed. Reid Whitmore MD ADDENDUM: Delayed imaging is obtained but no definite activity is identified within the gallbladder. Therefore, cystic duct obstruction is not excluded. Tien Donato MD Abdomen/Pelvis CT 09/22/17 0000 Signed Impressions: Service Date/Time: Friday, September 22, 2017 03:08 - CONCLUSION: 1. Small amount of ascites. Etiology is unclear. The liver is unremarkable although it is incompletely evaluated due to lack of contrast. 2. Nonspecific central mesenteric adenopathy measuring up to 1.1 cm. 3. Otherwise, no acute abnormality is demonstrated on this nonenhanced examination. Kenny Dee MD Chest X-Ray 09/21/17 1659 Signed Impressions: Service Date/Time: Thursday, September 21, 2017 17:29 - CONCLUSION: Mild left base parenchymal opacity Tien Narvaez MD Laboratory Test 09/23/17 05:04 09/23/17 10:49 White Blood Count 7.9 TH/MM3 Red Blood Count 2.72 MIL/MM3 Hemoglobin 9.8 GM/DL Hematocrit 28.7 % Mean Corpuscular Volume 105.3 FL Mean Corpuscular Hemoglobin 36.1 PG Mean Corpuscular Hemoglobin Concent 34.3 % Red Cell Distribution Width 18.9 % Platelet Count 172 TH/MM3 Mean Platelet Volume 9.5 FL Neutrophils (%) (Auto) 62.4 % Lymphocytes (%) (Auto) 23.9 % Monocytes (%) (Auto) 12.1 % Eosinophils (%) (Auto) 0.9 % Basophils (%) (Auto) 0.7 % Neutrophils # (Auto) 5.0 TH/MM3 Lymphocytes # (Auto) 1.9 TH/MM3 Monocytes # (Auto) 1.0 TH/MM3 Eosinophils # (Auto) 0.1 TH/MM3 Basophils # (Auto) 0.1 TH/MM3 CBC Comment DIFF FINAL Differential Comment Blood Urea Nitrogen 14 MG/DL Creatinine 0.67 MG/DL Random Glucose 77 MG/DL Total Protein 5.6 GM/DL Albumin 1.8 GM/DL Calcium Level 7.8 MG/DL Alkaline Phosphatase 132 U/L Aspartate Amino Transf (AST/SGOT) 109 U/L Alanine Aminotransferase (ALT/SGPT) 69 U/L Total Bilirubin 5.6 MG/DL Sodium Level 134 MEQ/L Potassium Level 3.9 MEQ/L Chloride Level 101 MEQ/L Carbon Dioxide Level 26.0 MEQ/L Anion Gap 7 MEQ/L Estimat Glomerular Filtration Rate 124 ML/MIN Hepatitis A IgM Antibody NEGATIVE Hepatitis B Surface Antigen NEGATIVE Hepatitis B Core IgM Antibody NEGATIVE Hepatitis C Antibody NEGATIVE Physical Examination HEENT: Normocephalic; atraumatic; (+) icterus CHEST: Even/unlabored CARDIAC: RRR ABDOMEN: Distended, RUQ TTP, soft, bowel sounds active EXTREMITIES: No clubbing, cyanosis, or edema. SKIN: (+) jaundice. ASSEMBLY MANAGER: Alert and oriented x 3, confused (Luisa Brantley) Assessment and Plan Plan Assessment: - Abnormal HIDA scan suggestive of acute cholecystitis with exam revealing RUQ tenderness. Pt reports intermittent nausea after eating, epigastric abdominal pain states sometimes on empty stomach sometimes worse after eating - Transaminitis- ETOH hepatitis. Previously drinking 20 beers daily, has recently cut back to approx 9 beers a day. Has not had more extensive liver work up. Liver US ordered by attending is pending. Hepatitis panel negative Current labs as follows: T bili-5.6 AST-109 ALT-69 Alk phos-132 CT abdomen and pelvis W/O IV contrast --> Small amount of ascites. Etiology unclear. Liver is unremarkable although limited study due to lack of contrast. Nonspecific central mesenteric adenopathy up to 1.1 cm. - Anemia, macrocytic- likely from folate deficiency given ETOH history. - A-fib RVR now rate controlled. Cardizem. Heparin. Plan: GS consult for acute cholecystitis Zosyn Liver VELARDE Ammonia level Lipase Alcohol withdraw protocol Further recommendations based on findings of above Pt has been seen and examined by myself and Dr. Cancino and this note is written on his behalf (Luisa Brantley) Plan And examined, agree with above-noted, most likely acute cholecystitis, I don't think the patient has bile duct obstruction, we will ask for surgical consult and see what their opinion, we will follow up on lab tomorrow, he need to stop alcohol and endoscopy and colonoscopy may be considered for anemia but this could be as an outpatient (Loretta Cancino MD) Luisa Brantley Sep 23, 2017 15:53 Loretta Cancino MD Sep 23, 2017 19:31
--- NOTE | 2017-09-23 16:19 | RADRPT ---
EXAM DATE/TIME: 09/23/2017 14:43 [facility] COMPARISON: No previous studies available for comparison. INDICATIONS : Increased lab values. MEDICAL HISTORY : Hypercholesterolemia. Hypertension. Liver disease. SURGICAL HISTORY : Total knee replacement, left. Total knee replacement, right. Abdominal hernia. Bilateral hip replac ement. Back surgery. ENCOUNTER: Initial ACUITY: 2 days PAIN SCORE: 4/10 LOCATION: Abdomen. MEASUREMENTS: LIVER: 20.1 cm length COMMON DUCT: 6 mm RIGHT KIDNEY: 11.9 x 6.4 x 5.0 cm SPLEEN: 14.0 cm length FINDINGS: Ultrasound of the upper abdomen demonstrates increased echogenicity of the liver compatible with fatt y infiltration or hepatocellular disease. The spleen is unremarkable. A positive sonographic Steiner s ign is present There are numerous gallstones present with gallbladder wall thickening and trace peric holecystic fluid. Cholecystitis is not excluded. Radionuclide imaging is recommended for further eval uation if clinically indicated. The visualized portion of the pancreas is unremarkable though the ent anh gland is not visualized secondary to overlying bowel gas. The right kidney is unremarkable. The s pleen is normal in size and free of focal defects. CONCLUSION: 1. Cholelithiasis with findings suspicious for acute cholecystitis. Radionuclide imaging is recommend ed for further evaluation if clinically indicated. Reid Whitmore MD on September 23, 2017 at 16:17 Board Certified Radiologist. This report was verified electronically.
--- NOTE | 2017-09-23 16:33 | HHI.PR ---
Subjective Remarks Patient seen this morning. He says that vague epigastric abdominal pain continues. Denies any ruby chest pain. Denies any nausea or vomiting. He says he is not quite sure why he is here. Son at bedside reports a history of chronic alcoholism going back many years, reports history of liver disease in the past as well. Son says that patient's confusion has been getting worse over the past few months to the point where he cannot take care of himself. Son reports that he is patient's POA. Objective Vital Signs Date Time Temp Pulse Resp B/P (MAP) Pulse Ox O2 Delivery O2 Flow Rate FiO2 09/23/17 13:00 76 09/23/17 12:00 82 09/23/17 11:33 98.8 91 19 126/90 (102) 97 09/23/17 11:31 91 126/90 09/23/17 11:00 71 09/23/17 09:00 70 09/23/17 08:28 99.0 83 18 124/91 (102) 99 09/23/17 08:00 104 09/23/17 07:13 Room Air 09/23/17 07:00 67 09/23/17 06:11 70 09/23/17 05:00 64 09/23/17 04:00 68 09/23/17 03:00 68 09/23/17 02:00 74 09/23/17 01:00 80 09/23/17 00:00 98.2 80 18 119/68 (85) 100 09/23/17 00:00 Room Air 09/23/17 00:00 100 09/23/17 00:00 94 09/22/17 23:00 92 09/22/17 22:00 88 09/22/17 21:00 94 09/22/17 20:00 94 09/22/17 20:00 98.4 92 18 127/93 (104) 99 09/22/17 20:00 Room Air 09/22/17 19:00 104 09/22/17 18:00 84 09/22/17 17:00 102 09/22/17 17:00 98.6 90 18 145/92 (109) 99 09/22/17 17:00 96 145/92 I/O 09/22/17 09/22/17 09/22/17 09/23/17 09/23/17/28/18 07:00 15:00 23:00 07:00 15:00 23:00 Intake Total 720 ml 845 ml 480 ml Output Total 550 ml 530 ml Balance 170 ml 315 ml 480 ml Intake Oral 720 ml 720 ml 480 ml IV Total 125 ml Output Urine Total 550 ml 530 ml # Voids 3 # Bowel Movements 0 Result Diagram: 09/23/17 0504 09/23/17 0504 Objective Remarks GENERAL: Patient sitting up on edge of bed. Appears comfortable. SKIN: Warm and dry. HEAD: Normocephalic. EYES: No scleral icterus. No injection or drainage. NECK: Supple, trachea midline. No JVD. CARDIOVASCULAR: Regular rate and rhythm without murmurs, gallops, or rubs. RESPIRATORY: Breath sounds equal bilaterally. No accessory muscle use. GASTROINTESTINAL: Abdomen soft, non-tender, nondistended. MUSCULOSKELETAL: No cyanosis, or edema. Neurologic. Patient exhibits poor attention, bilateral ataxia. BACK: Nontender without obvious deformity. No CVA tenderness. A/P Assessment and Plan //Atrial fibrillation with rapid ventricular response Patient reports he is not on anticoagulation or medications for his atrial fibrillation secondary to noncompliance Diltiazem drip Wean drip as tolerated; transition to by mouth ACS rule out pending = Troponins negative. Off diltiazem drip. Possibly exacerbated by alcohol withdrawal controlled on by mouth diltiazem. Echocardiogram with EF of 45%. Due to the possibility of patient needing gallbladder surgery, will consult cardiology. // Jaundice/transaminitis //Suspected acute cholecystitis. Patient likely has underlying liver disease Unclear etiology May be from alcohol abuse versus obstructive pathology CT of the abdomen/pelvis pending Monitor CMP = Liver ultrasound with suspected acute cholecystitis. HIDA scan confirms. Gastroenterology consulted. on Zosyn as per GI. General surgery consulted. I have also ordered cardiology for clearance prior to possible surgical intervention. //Anxiety Holding home Klonopin/Cymbalta as it is unclear as to when patient last took his home medications //Alcohol abuse //Acute alcohol withdrawal //Suspected chronic Wernicke-Korsakoff Thiamine/folate/multivitamin CIWA protocol Monitor for signs of withdrawal = Schedule Librium. Thiamine. Continue CIWA protocol. GI following. Appreciate assistance. FEN Heart healthy diet Electrolytes: Monitor and replete when necessary Heparin Discharge Planning Continue inpatient treatment for alcohol withdrawal, A. fib, RVR, acute cholecystitis. Pending improvement PT consult ordered and pending. Dennis Vegas MD Sep 23, 2017 16:33
[2017-09-23 16:58] LABS: IRON (FE) 45 MCG/DL (65-175); TOTAL IRON BINDING CAPACITY 161 MCG/DL (250-450)
[2017-09-23 17:01] LABS: FERRITIN 788 NG/ML (26-388)
[2017-09-23 17:45] LABS: FOLATE 13.1 NG/ML (3.1-17.5)
--- NOTE | 2017-09-23 17:59 | MB ---
cc: Jose Cage MD DATE OF CONSULT: 09/23/2017 HISTORY OF PRESENT ILLNESS: Geovanny is a 51-year-old gentleman with a history of atrial fibrillation, who is preop for cardiac surgery. He tells me has chest pain in the left side of the chest at rest, described as tightness. He smokes. He otherwise denies any fevers, chills, cough, GI or bleeding, PND, orthopnea, syncope or dizziness. PAST MEDICAL HISTORY: Includes a 2D echo done on 09/22/2017, which showed an EF of 45-50%, moderate mitral valve regurgitation, aortic valve sclerosis. The patient has a history of alcohol abuse. SOCIAL HISTORY: Includes tobacco and alcohol use. ALLERGIES: FENTANYL. MEDICATIONS IN THE HOSPITAL: Piperacillin, Cardizem 180 daily, Cymbalta, folic acid, Klonopin, multivitamins, heparin 5000 q. 8 hours, thiamine 100 mg daily, Cardizem drip which has been discontinued. PHYSICAL EXAMINATION: VITAL SIGNS: Pulse 82, blood pressure 126/90, respiratory rate 19, temperature 98.8. GENERAL: He is alert and oriented x 3, in no acute distress. NECK: Supple, no JVD, no bruit. CARDIOVASCULAR: S1, S2. No murmurs, rubs or gallops. LUNGS: Clear to auscultation bilaterally. ABDOMEN: Soft, nontender and nondistended with positive bowel sounds. EXTREMITIES: No cyanosis, clubbing or edema. LABORATORY STUDIES: White count 7.9, hemoglobin 9.8, hematocrit 28.7, platelet count is 172. Sodium 134, potassium 3.9, chloride 101, bicarb 26.0, BUN 14, creatinine 0.67, AST 109, ALT 69, albumin 1.8, lipase 534. INR is 1.3. IMAGING STUDIES: Chest x-ray: Mild left base parenchymal opacity. HIDA scan: Nonvisualization of the gallbladder which may reflect acute cholecystitis. Delayed imaging is obtained but definite activity is identified within the gallbladder, therefore cystic duct obstruction is not excluded. Abdominal pelvic CT: Small amount of ascites. Etiology is unclear. Liver is unremarkable. Liver is incompletely evaluated to lack of contrast. Nonspecific central mesenteric adenopathy measuring up 1.1 cm. Otherwise no acute abnormalities identified. Liver ultrasound: Cholelithiasis with findings suspicious for acute cholecystitis. EKG shows atrial fibrillation with a rate of 120 beats per minutes on admission. ASSESSMENT: The patient has the following diagnoses: 1. Atrial fibrillation with rapid ventricular response. 2. Unstable angina. 3. Alcohol abuse. 4. Tobacco abuse. 5. Cholecystitis. 6. Anemia. 7. Cardiomyopathy. 8. Hyponatremia. DISCUSSION: I have recommended to the patient and his son, who is his surrogate decision-maker and power of energy attorney in the presence of Dr. Lou, I recommended a left heart catheterization. I have explained that the risks of the procedure including possible PCIs, 5-10% chance of , stroke, heart attack, bleeding, infection, need for bypass surgery, dialysis, blood transfusion, anaphylaxis and arrhythmia. The patient is undecided. His anticoagulation is currently being held. I strongly recommend smoking cessation, alcohol abstinence, continued telemetry monitoring. Heart rate is currently controlled. MD DAYSI Lux/YVETTE , 05:31 PM , 05:58 PM
--- NOTE | 2017-09-23 18:03 | MB ---
cc: Gabriel Ashton MD DATE OF CONSULT: 09/23/2017 PERSON REQUESTING CONSULTATION: Farhana Bliss MD REASON FOR CONSULTATION: Possible cholecystitis. HISTORY OF PRESENT ILLNESS: Patient is a 51-year-old male with a history of alcohol abuse and mental disorder who presented to the [facility] with acute onset of atrial fibrillation. The patient was admitted and placed on anticoagulation and seen by cardiology. Further workup of the patient for incidental finding of jaundice was performed. The patient did undergo laboratory evaluations, which showed a total bilirubin of 5.6 today, AST of 109, ALT of 69, alkaline phosphatase 132. Hepatis panel is negative. Albumin is 1.8. Imaging did show non-visualization of the gallbladder on HIDA scan. CT abdomen and pelvis, small amount of ascites. General surgery was consulted for the patient's HIDA scan findings. Per the patient's son who is main historian, the patient has a history of PTSD and some mental cognitive impairment making it hard for him to care for himself and also noncompliant with treatments. The patient was recently transferred from [place] down to [place] by his children so they could monitor his care more closely. They noted that the patient did have a previous history of heavy heavy alcohol use and abuse, but now recently only occasionally has a beer. The patient also has a history of DTs in the past that were life threatening. REVIEW OF SYSTEMS: Conducted with the patient's son, otherwise negative except for some chronic back pain; otherwise negative and mentioned above. PAST MEDICAL HISTORY: Atrial fibrillation, history of alcohol abuse as above, anxiety and PTSD, some cognitive impairment without diagnosis. Patient is currently being evaluated by the [facility]. PAST SURGICAL HISTORY: Bilateral knee and bilateral hip replacements. MEDICATIONS: Thiamine, Zosyn, Duloxetine, Diazepam, Clonazepam, multivitamin, heparin, multiple benzodiazepines for withdrawal protocol. ALLERGIES: FENTANYL. SOCIAL HISTORY: History of previous alcohol abuse with some occasional use as above. Denies tobacco or illicit drug use. Currently lives with his children. FAMILY HISTORY: There is a history of gallstones in the family. PHYSICAL EXAMINATION: VITAL SIGNS: Heart rate 91, blood pressure 126/90, temperature is 98.8 degrees, O2 saturation 97% on room air. GENERAL: Patient is an overweight, female, appears in no acute distress. He does not appear acute or chronically ill. HEAD: Normocephalic, atraumatic. Pupils round and reactive to light. Sclerae show some mild icterus. Oral cavity is clear. Airway is patent. NECK: Supple. No JVD. No lymphadenopathy. INTEGUMENT: Intact, warm, mildly icteric. LUNGS: Clear to auscultation bilaterally with an unlabored breathing pattern. HEART: Regular in rhythm. PMI is nondisplaced. ABDOMEN: Soft. Some subjective tenderness in the right upper quadrant with negative Steiner sign on exam. No surgical scars or hernias or ascites. Normal bowel sounds. EXTREMITIES: No clubbing, cyanosis or edema. BACK: No CVA tenderness. RECTAL: Exam is deferred. NEUROLOGIC: Patient is alert and oriented x 3. Flat affect. Nonfocal peripheral exam. ASSESSMENT AND PLAN: Patient is a 51-year-old male with right upper quadrant pain and newly diagnosed atrial fibrillation with positive HIDA scan. The patient of note has a very high bilirubin that is coming down of unknown etiology. Although the patient has a HIDA scan that does not show an obvious biliary obstruction, felt that ruling out biliary obstruction would be warranted. I did order an MRCP. I agree with IV antibiotics. We will follow along with the patient. If the patient is found to have significant liver disease making him high risk for surgery, would recommend performing cholecystomy tube for treatment through anticoagulation window. However, if the patient is found to have no significant liver disease or Child's A cirrhosis that is compensated or less and the patient requires cholecystectomy, that could be considered as definitive treatment. I had a long discussion with the patient and his son about the scenarios, but that the patient would need an evaluate for his bilirubin prior to any procedure. I answered all their questions to their satisfaction. We will follow along with the patient. Thank you very much for this consultation. MD TIMOTEO Meraz/MIGEL , 04:29 PM , 06:01 PM
[2017-09-23] MEDS: PIPERACIL-TAZO 3.375 GM PREMIX 50 ML IV SCH (18:17)
--- NOTE | 2017-09-23 22:11 | RADRPT ---
EXAM DATE/TIME: 09/23/2017 20:51 [facility] COMPARISON: No previous studies available for comparison. INDICATIONS : Altered mental status. RADIATION DOSE: 39.12 CTDIvol (mGy) MEDICAL HISTORY : Hypertension. A-fib SURGICAL HISTORY : None. ENCOUNTER: Initial ACUITY: 1 day PAIN SCALE: 0/10 LOCATION: cranial TECHNIQUE: Multiple contiguous axial images were obtained of the head. Using automated exposure control and adj ustment of the mA and/or kV according to patient size, radiation dose was kept as low as reasonably a chievable to obtain optimal diagnostic quality images. DICOM format image data is available electro nically for review and comparison. FINDINGS: CEREBRUM: The ventricles are normal for age. No evidence of midline shift, mass lesion, hemorrhage or acute in farction. No extra-axial fluid collections are seen. POSTERIOR FOSSA: The cerebellum and brainstem are intact. The 4th ventricle is midline. The cerebellopontine angle i s unremarkable. EXTRACRANIAL: The visualized portion of the orbits is intact. SKULL: The calvaria is intact. No evidence of skull fracture. CONCLUSION: No acute disease. Nitin Scanlon MD on September 23, 2017 at 22:09 Board Certified Radiologist. This report was verified electronically.
[2017-09-23] MEDS: LORazepam 1 MG TAB PO PRN (22:28)
--- NOTE | 2017-09-23 23:11 | RADRPT ---
EXAM DATE/TIME: 09/23/2017 21:30 [facility] COMPARISON: CT ABDOMEN & PELVIS W/O CONTRAST, September 22, 2017, 3:08. INDICATIONS : Obstruction. Stone. MEDICAL HISTORY : Hypertension. Neuropathy, Afib. SURGICAL HISTORY : Total knee replacement, right. Bilateral hip replacement, Hernia repair, Right wrist sx, Back sx. ENCOUNTER: Initial ACUITY: 1 day PAIN SCORE: 7/10 LOCATION: Right upper quadrant TECHNIQUE: Multiplanar, multisequence magnetic resonance imaging of the abdomen was performed. High-resolution 3D dataset was utilized to reconstruct maximum-intensity projection (MIP) images. FINDINGS: INTRAHEPATIC BILE DUCTS: Within normal limits. No significant anatomical variant is present. EXTRAHEPATIC BILE DUCTS: The common bile duct measures 7 mm No stone or filling defect is identified. GALLBLADDER: The gallbladder contains numerous tiny gallstones. LIVER: Normal size and signal intensity. No concerning liver lesion is identified on this non-contrast exam. PANCREAS: The main pancreatic duct is normal in size. There is no significant anatomical variant. Signal inte nsity is within normal limits. No mass is visualized on this non-contrast exam. OTHER: Moderate amount of ascites is noted. The remaining visualized structures demonstrate no acute abnorma lity on this non-contrast exam. CONCLUSION: 1. Cholelithiasis. 2. No biliary ductal dilatation. 3. Moderate amount of ascites. Nitin Scanlon MD on September 23, 2017 at 23:04 Board Certified Radiologist. This report was verified electronically.
[2017-09-24] VITALS (14 sets, daily range): BP systolic 104–131; BP diastolic 72–93; PULSE 61–85; RESP 18; TEMP 97.5–98.1; O2SAT 97–98
[2017-09-24] MEDS: PIPERACIL-TAZO 3.375 GM PREMIX 50 ML IV SCH ×2 (03:02→08:34)
[2017-09-24] MEDS: HEPARIN SODIUM - SQ 10,000 UNITS/ML VIAL SQ SCH (05:37)
[2017-09-24] MEDS: LORazepam 1 MG TAB PO PRN (05:44)
[2017-09-24] MEDS: MULTIVITAMIN TAB PO SCH (08:34)
[2017-09-24] MEDS: THIAMINE HCL 100 MG TAB PO SCH ×2 (08:34→08:35)
[2017-09-24] MEDS: DILTIAZEM-CD 180 MG CAP ER PO SCH (08:34)
[2017-09-24] MEDS: FOLIC ACID 1 MG TAB PO SCH (08:34)
[2017-09-24] MEDS: clonazePAM 1 MG TAB PO SCH ×3 (08:34→17:31)
[2017-09-24] MEDS: SODIUM CHLORIDE 0.9% FLUSH 10 ML FLUSH IV FLUSH SCH ×2 (08:35→21:10)
[2017-09-24] MEDS: DULoxetine HCl DR 60 MG CAP PO SCH (09:30)
[2017-09-24 09:36] LABS: ALBUMIN 1.9 GM/DL (3.4-5.0); ALT (GPT) 72 U/L (12-78); AST (GOT) 131 U/L (15-37); BICARBONATE 23.4 MEQ/L (21.0-32.0); BLOOD UREA NITROGEN 15 MG/DL (7-18); CALCIUM 8.1 MG/DL (8.5-10.1); CHLORIDE 101 MEQ/L (98-107); CREATININE 0.74 MG/DL (0.60-1.30); GLOMERULAR FILTRATION RATE 111 ML/MIN (>89); GLUCOSE,RANDOM 80 MG/DL (74-106); SODIUM (NA) 133 MEQ/L (136-145)
[2017-09-24 09:38] LABS: ALKALINE PHOSPHATASE 138 U/L (45-117); TOTAL BILIRUBIN ADULT 6.1 MG/DL (0.2-1.0); TOTAL PROTEIN 6.2 GM/DL (6.4-8.2)
--- NOTE | 2017-09-24 10:48 | HHI.GIFU ---
Subjective Remarks Pt resting in bed in NAD, relatively noncontributory aside from one word answers and grunts. (Loren Ortiz) Objective Vitals I&O Vital Signs Date Time Temp Pulse Resp B/P (MAP) Pulse Ox O2 Delivery O2 Flow Rate FiO2 09/24/17 08:00 97.7 82 18 120/88 (99) 98 09/24/17 06:00 63 09/24/17 05:00 77 09/24/17 04:00 66 09/24/17 03:00 71 09/24/17 03:00 98.1 78 18 104/72 (83) 97 09/24/17 02:00 69 09/24/17 01:00 67 09/24/17 00:00 76 09/23/17 23:00 96 09/23/17 23:00 98.2 95 18 128/88 (101) 98 09/23/17 22:20 76 09/23/17 20:00 92 09/23/17 19:45 97.3 89 18 113/78 (90) 97 09/23/17 19:00 81 09/23/17 18:00 78 09/23/17 17:00 80 09/23/17 16:00 76 09/23/17 15:00 89 09/23/17 15:00 98.7 77 20 140/83 (102) 98 09/23/17 14:00 96 09/23/17 13:00 76 09/23/17 12:00 82 09/23/17 11:33 98.8 91 19 126/90 (102) 97 09/23/17 11:31 91 126/90 09/23/17 11:00 71 I/O 09/23/17 09/23/17 09/23/17 09/24/17 09/24/17 09/24/17 07:00 15:00 23:00 07:00 15:00 23:00 Intake Total 480 ml 100 ml 290 ml Output Total 200 ml Balance 480 ml 100 ml 90 ml Intake Oral 480 ml 100 ml 240 ml IV Total 50 ml Output Urine Total 200 ml # Voids 3 3 2 # Bowel Movements 0 0 Laboratory Laboratory Tests Test 09/23/17 10:49 09/23/17 16:26 09/24/17 08:32 Hepatitis A IgM Antibody NEGATIVE Hepatitis B Surface Antigen NEGATIVE Hepatitis B Core IgM Antibody NEGATIVE Hepatitis C Antibody NEGATIVE Iron Level 45 Total Iron Binding Capacity 161 Percent Iron Saturation 28.0 Ferritin 788 Ammonia 28 Lipase 534 Vitamin B12 Level 774 Folate 13.1 Blood Urea Nitrogen 15 Creatinine 0.74 Random Glucose 80 Total Protein 6.2 Albumin 1.9 Calcium Level 8.1 Alkaline Phosphatase 138 Aspartate Amino Transf (AST/SGOT) 131 Alanine Aminotransferase (ALT/SGPT) 72 Total Bilirubin 6.1 Sodium Level 133 Potassium Level 3.9 Chloride Level 101 Carbon Dioxide Level 23.4 Anion Gap 9 Estimat Glomerular Filtration Rate 111 Imaging Last Impressions Liver Ultrasound 09/23/17 0000 Signed Impressions: Service Date/Time: Saturday, September 23, 2017 14:43 - CONCLUSION: 1. Cholelithiasis with findings suspicious for acute cholecystitis. Radionuclide imaging is recommended for further evaluation if clinically indicated. Reid Whitmore MD Head CT 09/23/17 0000 Signed Impressions: Service Date/Time: Saturday, September 23, 2017 20:51 - CONCLUSION: No acute disease. Nitin Scanlon MD Cholangiopancreatography MRI 09/23/17 0000 Signed Impressions: Service Date/Time: Saturday, September 23, 2017 21:30 - CONCLUSION: 1. Cholelithiasis. 2. No biliary ductal dilatation. 3. Moderate amount of ascites. Nitin Scanlon MD Hepatobiliary Scan Nuclear Medicine 09/22/17 0000 Signed Impressions: Service Date/Time: Friday, September 22, 2017 13:52 - CONCLUSION: Nonvisualization of the gallbladder which may reflect acute cholecystitis. Delayed imaging is to be performed. Reid Whitmore MD ADDENDUM: Delayed imaging is obtained but no definite activity is identified within the gallbladder. Therefore, cystic duct obstruction is not excluded. Tien Donato MD Abdomen/Pelvis CT 09/22/17 0000 Signed Impressions: Service Date/Time: Friday, September 22, 2017 03:08 - CONCLUSION: 1. Small amount of ascites. Etiology is unclear. The liver is unremarkable although it is incompletely evaluated due to lack of contrast. 2. Nonspecific central mesenteric adenopathy measuring up to 1.1 cm. 3. Otherwise, no acute abnormality is demonstrated on this nonenhanced examination. Kenny Dee MD Chest X-Ray 09/21/17 5770 Signed Impressions: Service Date/Time: Thursday, September 21, 2017 17:29 - CONCLUSION: Mild left base parenchymal opacity Tien Narvaez MD Physical Exam HEENT: normocephalic; atraumatic; icteric CHEST: Cta CARDIAC: irr HR ABDOMEN: Soft,distended, nontender; bowel sounds are present in all four quadrants. EXTREMITIES: No clubbing, cyanosis, or edema. SKIN: Normal; no rash; no jaundice. ENVIRONMENTAL HEALTH PHYSICIAN: somewhat confused, lethargic (Loren Ortiz) Assessment and Plan Plan Assessment: - Abnormal HIDA scan suggestive of acute cholecystitis with exam revealing RUQ tenderness. Pt reports intermittent nausea after eating, epigastric abdominal pain states sometimes on empty stomach sometimes worse after eating - Transaminitis- ETOH hepatitis. Previously drinking 20 beers daily, has recently cut back to approx 9 beers a day. Has not had more extensive liver work up. Liver US ordered by attending is pending. Hepatitis panel negative Current labs as follows: T bili-5.6 AST-109 ALT-69 Alk phos-132 CT abdomen and pelvis W/O IV contrast --> Small amount of ascites. Etiology unclear. Liver is unremarkable although limited study due to lack of contrast. Nonspecific central mesenteric adenopathy up to 1.1 cm. - Anemia, macrocytic- likely from folate deficiency given ETOH history. - A-fib RVR now rate controlled. Cardizem. Heparin. 09/24/17 MRCP shows cholelithiasis, no obstruction, moderate ascites. LFTs slowly trending down. liver w/u is pending. lipase 534 hep panel negative. has evaluated and wanted to r/o obstruction & need for ERCP, cholecystectomy may be option if pt is child class A, by my calculation he is a C. ?cholecystomy pt to have heart cath procedure Plan: await GS follow up cont Zosyn await Liver VELARDE etoh cessation Pt has been seen and examined by myself and Dr. Cancino and this note is written on his behalf (Loren Ortiz) Plan Patient was seen and examined, agree with above-noted, most likely liver function tests related to alcohol, patient also may have cystic duct obstruction but he is not interested in any procedure, we'll continue current care, possible cardiac catheter, advised to stop alcohol completely (Loretta Cancino MD) Loren Ortiz Sep 24, 2017 10:48 Loretta Cancino MD Sep 24, 2017 17:28
[2017-09-24] MEDS ORDERED: THIAMINE HCL 100 MG TAB PO ONE (11:45)
--- NOTE | 2017-09-24 11:48 | HHI.PR ---
Subjective Remarks She says he is feeling better today. Denies any abdominal pain. Denies any chest pain or shortness of breath currently. Says that his walking is a little better today. Objective Vital Signs Date Time Temp Pulse Resp B/P (MAP) Pulse Ox O2 Delivery O2 Flow Rate FiO2 09/24/17 08:00 97.7 82 18 120/88 (99) 98 09/24/17 06:00 63 09/24/17 05:00 77 09/24/17 04:00 66 09/24/17 03:00 71 09/24/17 03:00 98.1 78 18 104/72 (83) 97 09/24/17 02:00 69 09/24/17 01:00 67 09/24/17 00:00 76 09/23/17 23:00 96 09/23/17 23:00 98.2 95 18 128/88 (101) 98 09/23/17 22:20 76 09/23/17 20:00 92 09/23/17 19:45 97.3 89 18 113/78 (90) 97 09/23/17 19:00 81 09/23/17 18:00 78 09/23/17 17:00 80 09/23/17 16:00 76 09/23/17 15:00 89 09/23/17 15:00 98.7 77 20 140/83 (102) 98 09/23/17 14:00 96 09/23/17 13:00 76 09/23/17 12:00 82 I/O 09/23/17 09/23/17 09/23/17 09/24/17 09/24/17 09/24/17 07:00 15:00 23:00 07:00 15:00 23:00 Intake Total 480 ml 100 ml 290 ml Output Total 200 ml Balance 480 ml 100 ml 90 ml Intake Oral 480 ml 100 ml 240 ml IV Total 50 ml Output Urine Total 200 ml # Voids 3 3 2 # Bowel Movements 0 0 Result Diagram: 09/23/17 0504 09/24/17 0832 Objective Remarks GENERAL: Patient sitting up in bed.. Appears comfortable. Alert to person, place, date, not year. He uses board for date SKIN: Warm and dry. HEAD: Normocephalic. EYES: No scleral icterus. No injection or drainage. NECK: Supple, trachea midline. No JVD. CARDIOVASCULAR: Regular rate and rhythm without murmurs, gallops, or rubs. RESPIRATORY: Breath sounds equal bilaterally. No accessory muscle use. GASTROINTESTINAL: Abdomen soft, non-tender, nondistended. MUSCULOSKELETAL: No cyanosis, or edema. Neurologic. Patient exhibits poor attention, bilateral ataxia improved. BACK: Nontender without obvious deformity. No CVA tenderness. A/P Assessment and Plan //Atrial fibrillation with rapid ventricular response Patient reports he is not on anticoagulation or medications for his atrial fibrillation secondary to noncompliance Diltiazem drip Wean drip as tolerated; transition to by mouth ACS rule out pending = Troponins negative. Off diltiazem drip. Possibly exacerbated by alcohol withdrawal controlled on by mouth diltiazem. Echocardiogram with EF of 45%. Due to the possibility of patient needing gallbladder surgery, will consult cardiology. = Cardiology following. Appreciate assistance. Possible cardiac catheterization pending discussion between cardiology and family. // Jaundice/transaminitis //Suspected acute cholecystitis. Patient likely has underlying liver disease Unclear etiology May be from alcohol abuse versus obstructive pathology CT of the abdomen/pelvis pending Monitor CMP = Liver ultrasound with suspected acute cholecystitis. HIDA scan confirms. Gastroenterology consulted. on Zosyn as per GI. General surgery consulted. I have also ordered cardiology for clearance prior to possible surgical intervention. = Continue on Zosyn for cholecystitis. Gastroenterology may opt for ERCP. Appreciate general surgery and //Anxiety Holding home Klonopin/Cymbalta as it is unclear as to when patient last took his home medications //Alcohol abuse //Acute alcohol withdrawal //Suspected chronic Wernicke-Korsakoff Thiamine/folate/multivitamin CIWA protocol Monitor for signs of withdrawal = Schedule Librium. Thiamine. Continue CIWA protocol. GI following. Appreciate assistance. = Improving. Continue scheduled Librium and CIWA protocol. FEN Heart healthy diet Electrolytes: Monitor and replete when necessary Heparin Discharge Planning Continue inpatient treatment for alcohol withdrawal, A. fib, RVR, acute cholecystitis. Pending improvement PT, OT following. Dennis Vegas MD Sep 24, 2017 11:48
[2017-09-24] MEDS ORDERED: HEPARIN-NS/PF FLUSH BAG 2,000 ML IV FLUSH ONE (15:04)
[2017-09-24] MEDS ORDERED: HEPARIN SODIUM - IV 10,000 UNITS/10 ML VIAL ONE (15:07)
[2017-09-24] MEDS ORDERED: MIDAZOLAM HCL 2 MG/2 ML VIAL ONE ×2 (15:07→15:54)
[2017-09-24] MEDS ORDERED: TIROFIBAN INFUSION INJ 250 ML IV ONE (15:54)
[2017-09-24] MEDS ORDERED: CLOPIDOGREL 300 MG TAB ONE (15:54)
--- NOTE | 2017-09-24 16:15 | CATHPROC ---
Ask The Doctor HIS Report Study Information Study Number Admission Scheduled Start Study Start [id number] Sep 21 2017 8:58PM 09/24/2017 Sep 24 2017 1:53PM [place] [facility] Cardiac Catheterization Admit Source Facility Department Emergency department [facility] - Track Repairer Physician and Clinical Staff Initial Jose Polk Appeals Assistant Susie Pardo RN Recorder Lina Luu,RT(R) Scrub Juan C Gaviria RCIS(BS) Procedures Performed Procedure Location (Site) Vessel Name Coronary Angiograms LCA Left Coronary Coronary Angiograms RCA Right Coronary LV Gram-hand inj. LV LV Ventricle Stent RCA Mid Right Coronary Wire insertion Fem Art (right) Femoral Art Equipment Time Bargeman Description Size Mfg Part Number Used/Scraped [id number] 15:42 CRUZ [employer] WIRE, ASAHI PROWATER 180CM 180CM Used *[id number] CATHETER, FR5 SWAN HECTOR 15:19 Stockpile FR 5 110F5 *[id number] Used MONITOR TRANSDUCER, TRUWAVE [id number] 14:46 LINK JAUREGUI * Used W/STOCKCOCK *[id number] [id number] *[id number] *[id number] [id number] *[id number] 14:46 MEDLINE INDUSTRIES PACK, CCL CUSTOM * Used *[id number] 14:46 Conexus-IT PACER PEN, SKIN DUAL W/ RULER * Used *[id number] 15:53 MEDTRONIC STENT, 3.0 12 INTEGRITY 3.0 12 Used *[id number] 15:53 Imperva MEDICAL 30 ENRIQUE INDEFLATOR Used *[id number] 15:48 Imperva MEDICAL SHEATH, FR6.5 PRELUDE 11CM FR 6.5 038ACT Used *[id number] 14:46 Imperva MEDICAL WIRE, 3MMJ .035 180CM 180CM Used *[id number] 14:46 NAMIC MANIFOLD, 4 PORT * Used *[id number] [id number] 16:12 NAMIC MANIFOLD, 4 PORT * Used *[id number] 14:46 NYCOMED OMNIPAQUE, 350 MG, 150ML 150ML [id number] Used [id number] 14:46 STACY MEDICAL BLANKET,WARM AIR CCL * Used *[id number] 14:46 TERUMO MEDICAL SHEATH, FR4 TERUMO (10CM) FR 4 Used *[id number] 15:19 TERUMO MEDICAL SHEATH, FR6 TERUMO (10CM) FR 6 Used *[id number] Equipment Model, Serial, Lot Number and Expiration Data Description Model Number Serial Number Lot Number Expiration Date STENT, 3.0 12 INTEGRITY [id number] 11-19-2018 History: Current Medications Medication Dosage/Unit Route Frequency Last Date/Time Taken SELINA HERNANDEZ History: Allergies Allergy Reaction fentanyl History: Risk Factors Family History of Hypertension Dyslipidemia Previous NH Previous Heart Failure Premature CAD Yes No No No No Prior Valve Prior PCI Prior CABG Surgery No No No Cerebrovascular Peripheral Artery Chronic Lung On Dialysis Diabetes Disease Disease Disease No No No No No History: Symptoms/Diagnosis Selection Items Chest pain Palpitations SOB History: Stress Tests Stress or Imaging Studies Performed No History: Arrhythmias Selection Items Atrial fibrillation History: Other Current Smoker Method Packs a Day Years Used Pack Years Yes Cigarettes 1 58 58 Labs Hgb (g/dl) Hct (%) WBC (l/cumm) Platelets (thousands) 11.60-17.00 35.00-51.00 4.00-11.00 150.00-450.00 9.8 28 2.7 172 Glucose (mg/dl) BUN (mg/dl) Creatinine (mg/dl) BUN:Creatinine (1:x) 74.00-106.00 7.00-18.00 0.50-1.30 10.00-20.00 80 15 0.7 21.4 Na (meq/l) K (meq/l) 136.00-145.00 3.50-5.10 133 3.9 INR (PTT:PT) 0.90-1.10 1.3 Troponin I (ng/ml) CPK (u/l) CPK-MB (ng/ML) 0.02-0.05 26.00-308.00 0.50-3.60 0.02 53 Not Drawn Medication Medication Total Dose (Bolus/Oral) Medication Total Dosage/Unit 1% XYLOCAINE 20 mL AGGRASTAT BOLUS 54.5 mL HEPARIN 7600 units PLAVIX 600 mg VERSED 4 mg Medications (Bolus/Oral) Medication Time Given Dosage/Unit Administered By Reason VERSED 09/24/2017 3:18:13 PM 2 mg Susie Pardo 2 mg VERSED given in lab by Susie Pardo RN in Left Antecubital via Peripheral IV. Ordered by Jose Dodd. 1% XYLOCAINE 09/24/2017 3:19:13 PM 20 mL Jose Cage 20 mL 1% XYLOCAINE given in lab by Jose Cage in Right Groin via Subcutaneous. HEPARIN 09/24/2017 3:45:33 PM 7600 units Susie Pardo 7600 units HEPARIN given in lab by Susie Pardo RN in Left Antecubital via Peripheral IV. Ordere d by Jose Cage. VERSED 09/24/2017 3:47:55 PM 1 mg MraAmelia moorearet 1 mg VERSED given in lab by Susie Pardo RN in Left Antecubital via Peripheral IV. Ordered by Jose Dodd. VERSED 09/24/2017 3:48:03 PM 1 mg Mrache, Susie 1 mg VERSED given in lab by Susie Pardo RN in Left Antecubital via Peripheral IV. Ordered by Jose Dodd. AGGRASTAT BOLUS 09/24/2017 3:59:42 PM 54.5 mL Susie Pardo 54.5 mL AGGRASTAT BOLUS given in lab by Susie Pardo RN in Left Antecubital via Peripheral IV. O rdered by Jose Cage. PLAVIX 09/24/2017 4:02:41 PM 600 mg Susie Pardo 600 mg PLAVIX given in lab by Susie Pardo RN via Oral. Ordered by Jose Cage. Medication (Drip) Medication Time Given Dosage/Unit Concentration/Unit Diluent (ml) Solution AGGRASTAT DRIP 09/24/2017 4:09:05 PM 0.15 mcg/kg/min 12.5 mg 250 NaCl .9 0.15 mcg/kg/min AGGRASTAT DRIP given in lab by Susie Pardo RN in Left Antecubital via Periphera l IV. Pump/Drip Flow = 19.6 ml/hr using NaCl .9 with a concentration of 12.5 mg in 250 ml. Ordered by Jose Cage. IV Solutions 09/24/2017 2:59:11 PM 50 mL (IV) NaCl .9 IV Solutions given in lab by Susie Pardo, RN in Left Antecubital via Peripheral IV. Pump/Drip Fl ow using NaCl .9. Initial Case Assessment Cardiovascular HR Rhythm NIBP Chest Pain 74 SR 137/87 0 Skin color Skin Jaundice Warm Dry Circulatory - Right Pulses Dorsalis Pedis Femoral 2 2 Scale (0,1,2,3,4,d) Circulatory - Left Pulses Dorsalis Pedis Femoral 2 2 Scale (0,1,2,3,4,d) Neurological State Oriented to time-place- Alert Moves all extremities person Respiration - General Respiration Rate SpO2 (%) (B/min) 18 98 Chronological Log Time Study Chronological Log 14:58:50 Patient arrived via Bed. 14:59:00 Patient Name, D.O.B, / Armband Verified By R.N. 14:59:00 Consent signed by the physician and the patient and verified by the Track Repairer staff. 14:59:01 Pre-op and post- op instructions given; patient acknowledges understanding of instructions . 14:59:02 Verbal Stimulation=2 Physical Stimulation=2 Airway=2 Respiration=2 TOTAL=8. (0=absent, 1=l imited, 2=present) 14:59:03 Presedation assessment performed by Track Repairer RN. 14:59:06 Patient has been NPO for More than 6Hrs. 14:59:06 Skin Breakdown- none per pt 14:59:07 Patient Warmer Placed on the Table. 14:59:08 Jayashree Prominences Protected 14:59:10 A # 20 IV was noted in the Antecubital (left). Grade = 0 14:59:11 IV Solutions given in lab by Susie Pardo, RN in Left Antecubital via Peripheral IV. P ump/Drip Flow using NaCl .9. 14:59:13 History and physical on the chart or being dictated. Assessment: Initial Case, HR=74 BPM, Rhythm=SR, LIXT=004/87 mmhg, Chest Pain=0, Color=Jaundice , Skin = Warm, Dry Right Pulses: Ernesto Ped=2, Femoral=2 14:59:14 Left Pulses: Ernesto Ped=2, Femoral=2 Neurological: State=Alert, Ox3, DIAZ Respiration: Resp=18 B/min, SpO2=98 % Vitals capture started with the following parameters, Patient=Adult, Interval=5 min, Initial Pr dhrohb=819 mmHg, 15:06:54 Deflation Rate=5 mmHg, Cuff placed on Left Arm 15:07:00 Bilateral groins prepped with 2% chlorhexidine, and draped after a 3 minute waiting time. 15:07:33 HR=66 bpm, LKKB=420/87 mmhg, SpO2=98.0 %, Resp=17 B/min 15:08:44 Reference ECG taken 15:11:59 MD paged 15:12:29 MD responded 15:12:32 HR=71 bpm, BGJF=930/91 mmhg, SpO2=98.0 %, Resp=20 B/min 15:13:59 Pressure channel 1 zeroed. 15:16:08 MD arrived. 15:17:31 HR=88 bpm, SCVU=851/81 mmhg, SpO2=97.0 %, Resp=14 B/min Time Out. Correct patient, correct procedure, correct physician, power injector not loaded with contrast with surgical 15:18:12 team present. Time Out Concurred by MD and individual staff in procedure. 15:18:13 2 mg VERSED given in lab by Susie Pardo, MISHA in Left Antecubital via Peripheral IV. Ord ered by Jose Cage. 15:19:06 Case Start 15:19:13 20 mL 1% XYLOCAINE given in lab by Jose Cage in Right Groin via Subcutaneous. 15:22:00 Access site was Right Femoral Artery. 15:22:30 HR=71 bpm, DVYO=703/87 mmhg, SpO2=97.0 %, Resp=19 B/min 15:22:37 A SHEATH, FR4 TERUMO (10CM) FR 4 was advanced into the Fem Art (right) using the Percutaneo us technique. 15:22:50 Saturation: Site=Ao (Aorta) , O2=97.2 %, Hgb=9.8 gm/dl, Condition=Condition 1. Used in calc ulation. 15:24:12 Access site was Right Femoral Vein. 15:24:21 A SHEATH, FR6 TERUMO (10CM) FR 6 was advanced into the Fem Vein (right) using the Percutane ous technique. 15:24:32 A CATHETER, FR5 SWAN HECTOR MONITOR FR 5 was inserted via Fem Vein (right) Recorded Pressure: PCW, HR=72, Condition=Condition 1 15:25:08 (Pulmonary Capillary Wedge) PCW Recorded Pressure: MPA, HR=73, Condition=Condition 1 15:25:29 (Main Pulmonary Artery) MPA 15:25:37 Saturation: Site=PA (Pulmonary Artery) , O2=55.1 %, Hgb=9.8 gm/dl, Condition=Condition 1. U sed in calculation. Recorded Pressure: RV, HR=70, Condition=Condition 1 15:26:13 (Right Ventricle) RV 33 Recorded Pressure: RA, HR=82, Condition=Condition 1 15:26:26 (Right Atrium) RA 15:26:56 Saturation: Site=RA (Right Atrium) , O2=61 %, Hgb=9.8 gm/dl, Condition=Condition 1. Used in calculation. 15:27:10 [place] Hector Catheter Removed A JR 4.0 INFINITI CATHETER FR 4 was advanced over a wire. OMNIPAQUE, 350 MG, 150ML 150ML was us ed for 15:27:27 injections. 15:28:02 HR=89 bpm, QOWC=578/83 mmhg, SpO2=98.0 %, Resp=18 B/min Recorded Pressure: LV, HR=65, Condition=Condition 1 15:28:21 (Left Ventricle) LV 100/8/13 15:28:34 The LV was manually injected with 6 cc's and visualized. OMNIPAQUE, 350 MG, 150ML 150ML use d. Recorded Pressure: LV, Ao, HR=92, Condition=Condition 1 15:28:38 (Left Ventricle) LV 134/19/14, (Aorta) Ao 95/66/80 15:29:16 The RCA was injected and visualized at various angles. OMNIPAQUE, 350 MG, 150ML 150ML used . Recorded Pressure: Ao, HR=84, Condition=Condition 1 15:29:32 (Aorta) Ao 105/75/89 15:30:41 Catheter was removed A JL 4.0 INFINITI CATHETER FR 4 was advanced over a wire. OMNIPAQUE, 350 MG, 150ML 150ML was us ed for 15:30:42 injections. 15:31:40 The LCA was injected and visualized at various angles. OMNIPAQUE, 350 MG, 150ML 150ML used . 15:32:26 Catheter was removed 15:32:37 Case End 15:33:05 HR=83 bpm, JSIU=169/86 mmhg, SpO2=98.0 %, Resp=13 B/min 15:35:10 Dr. Cage ended case, came out to dictate, saw lesion in RCA and decided to intervene. 15:37:33 HR=60 bpm, XTEP=650/77 mmhg, SpO2=97.0 %, Resp=20 B/min 15:42:33 HR=85 bpm, NHUK=513/71 mmhg, SpO2=98.0 %, Resp=17 B/min 15:43:52 Pressure channel 1 zeroed. 7600 units HEPARIN given in lab by Susie Pardo RN in Left Antecubital via Peripheral IV. Ordered by Niles 15:45:33 Jose. 15:47:55 1 mg VERSED given in lab by Susie Pardo RN in Left Antecubital via Peripheral IV. Ord ered by Jose Cage. 15:48:03 1 mg VERSED given in lab by Susie Pardo RN in Left Antecubital via Peripheral IV. Ord ered by Jose Cage. 15:48:04 HR=92 bpm, USJA=417/69 mmhg, SpO2=97.0 %, Resp=20 B/min A SHEATH, FR6.5 PRELUDE 11CM FR 6.5 was exchanged in the Fem Art (right). This was necessary in order to 15:48:09 accomodate a larger catheter. A JR 4.0 GUIDE CATHETER FR 6 was advanced over a wire. OMNIPAQUE, 350 MG, 150ML 150ML was used for 15:48:41 injections. 15:50:23 Activated Clotting Time Drawn 15:51:26 A WIRE, ASAHI PROWATER 180CM 180CM was inserted via Fem Art (right). 15:51:40 Interventional wire has crossed the lesion 15:52:33 HR=63 bpm, KFIB=909/69 mmhg, SpO2=98.0 %, Resp=15 B/min An STENT, 3.0 12 INTEGRITY 3.0 12 Bare Metal Stent was inserted through a JR 4.0 GUIDE CATHETER FR 6 over a 15:52:44 WIRE, ASAHI PROWATER 180CM 180CM. A STENT, 3.0 12 INTEGRITY 3.0 12 was deployed using a 30 ENRIQUE INDEFLATOR at 16 atmospheres for 1 5 seconds in 15:53:06 the RCA Mid. 15:53:46 Delivery device removed 15:54:09 Wire removed 15:54:12 Catheter was removed 15:54:14 Case End 15:55:08 ACT (Normal Range 90-180) = 281 In the Fem Art (right) the SHEATH, FR6.5 PRELUDE 11CM FR 6.5 and SHEATH, FR6 TERUMO 10cm was bowers tured in 15:56:24 place by Juan C Gaviria. 15:57:34 HR=89 bpm, KOGI=924/71 mmhg, SpO2=98.0 %, Resp=16 B/min 15:57:41 Sterile dressing applied to site 15:57:42 No case complications noted. 15:57:44 Cine recording checked. 15:57:45 Bedside Report will be given. 15:57:46 Implantable Device card placed in patient's chart. 15:57:51 A Left and Right Heart Cath was performed. 54.5 mL AGGRASTAT BOLUS given in lab by Susie Pardo, MISHA in Left Antecubital via Peripheral IV. Ordered by 15:59:42 Jose Cage. 16:02:31 HR=77 bpm, FUIQ=347/77 mmhg, SpO2=96.0 %, Resp=12 B/min 16:02:41 600 mg PLAVIX given in lab by Susie Pardo, MISHA via Oral. Ordered by Jose Cage. 16:07:14 Vitals capture stopped. 0.15 mcg/kg/min AGGRASTAT DRIP given in lab by Susie Pardo, MISHA in Left Antecubital via Pe ripheral IV. 16:09:05 Pump/Drip Flow = 19.6 ml/hr using NaCl .9 with a concentration of 12.5 mg in 250 ml. Ordered b y Jose Cage. 16:10:[address] [facility] End Study - Contrast Media Used In Study Contrast Total Opened (mL) Total Used (mL) Total Wasted (mL) Omnipaque 50 50 0 End Study - Maximum Contrast Load Max Contrast Load (mL) 778.6 End Study - Radiation Exposure Fluoro Time (minutes) 4.1 End Study - Patient Disposition Complications Transferred To Interventional Outcome No Telemetry Bed No attempt made
--- NOTE | 2017-09-24 16:19 | HHI.PR ---
cc: Gabriel Ashton MD Subjective Subjective Notes Resting in bed Reports no abdominal pain Objective Vitals/I&O Vital Signs Date Time Temp Pulse Resp B/P (MAP) Pulse Ox O2 Delivery O2 Flow Rate FiO2 09/24/17 12:13 97.5 78 18 131/93 (106) 98 09/23/17 07:13 Room Air Labs Laboratory Tests Test 09/23/17 16:26 09/24/17 08:32 Iron Level 45 Total Iron Binding Capacity 161 Percent Iron Saturation 28.0 Ferritin 788 Ammonia 28 Lipase 534 Vitamin B12 Level 774 Folate 13.1 Blood Urea Nitrogen 15 Creatinine 0.74 Random Glucose 80 Total Protein 6.2 Albumin 1.9 Calcium Level 8.1 Alkaline Phosphatase 138 Aspartate Amino Transf (AST/SGOT) 131 Alanine Aminotransferase (ALT/SGPT) 72 Total Bilirubin 6.1 Sodium Level 133 Potassium Level 3.9 Chloride Level 101 Carbon Dioxide Level 23.4 Anion Gap 9 Estimat Glomerular Filtration Rate 111 Cardiovascular: Regular Lungs: Clear Abdomen: Non-distended, Non-tender, Other (obese abdomen ) Extremities: No edema A/P Assessment and Plan 51 year old male elevated liver enzymes; A-fib -Going to heart cath today -MRCP shows no duct dilatation -Liver enzymes continue to be elevated -Will hold off on any surgery until liver enzymes trend down Attending Statement The exam, history, and the medical decision-making described in the above note were completed with the assistance of the mid-level provider. I reviewed and agree with the findings presented. I attest that I had a [id number] encounter with the patient on the same day, and personally performed and documented my assessment and findings in the medical record. 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
[2017-09-24] MEDS: TIROFIBAN INFUSION INJ 250 ML IV SCH (16:23)
[2017-09-24] MEDS ORDERED: SODIUM CHLORIDE 0.9% FLUSH 10 ML FLUSH IV FLUSH PRN (16:30)
[2017-09-24] MEDS ORDERED: BACITRACIN OINT 0.9 GM PKT TOP ONE (16:30)
[2017-09-24] MEDS ORDERED: MISC INFORMATION XX ONE (16:30)
--- NOTE | 2017-09-24 16:33 | MR ---
cc: Jose Cage MD PROCEDURE: 1. Left heart catheterization. 2. Left ventriculography. 3. Coronary angiography. 4. Right heart catheterization. 5. Direct PCI, bare-metal stent of the mid right coronary artery. INDICATION: Preop, noncardiac surgery, resting angina, unstable angina, new onset cardiac symptom of left-sided chest tightness at rest, [place] Cardiovascular Society class IV angina, cardiomyopathy. Patient was brought to the cardiac catheterization laboratory, prepped and draped in the usual sterile fashion, 10 mL of 1% lidocaine was used to locally anesthetize the right common femoral artery. A 4-Slovak sheath was placed in the right common femoral artery. A 6-Slovak sheath was placed in the right common femoral vein. Right heart catheterization was performed first with the following findings: The cardiac output by Higinio is 5.1 L/min, cardiac index by Higinio is 2.2 L/m2/min, SVR is 1233.5 dynes. On room air, the femoral artery sat is 97.2%, PA sat 55.1%, and RA sat 61%. Left heart catheterization was then performed with a 4-Slovak JR4 and JL4 catheter with the following findings: LV pressures of 110/15/16, the EF is 45%. Right coronary artery is dominant. Mid right coronary artery just after a small RV branch has a 75% stenosis, best imaged in the SPANISH view. The left main coronary artery is a large vessel with no significant disease angiographically. The left circumflex vessel has no significant disease angiographically. There is a ramus intermedius vessel which is medium size vessel, 2.5-2.75 mm reference vessel diameter. No significant obstructive disease. The first obtuse marginal vessel comes out at the proximal mid segment of the left circ. It is a large vessel, 3-3.5 mm reference vessel diameter with no significant obstructive disease. The second obtuse marginal vessel is a relatively small to medium size vessel, 2 mm reference vessel diameter, no significant obstructive disease. The LAD is transapical, has mild disease in the proximal segment, up to 20% angiographically. The 4-Slovak sheath was exchanged for a 6-Slovak sheath, 70 units/kg of heparin was given. ACT 281. A 6-Slovak JR4 guide 0.014 Prowater guidewire and 3.0 x 12 Integrity stent were used to direct stent the mid right coronary artery, 1 inflation of 16 atmospheres for 20 seconds. The stenosis went from 75% to 0% with MARILYN 3 flow. CONCLUSION: 1. New onset cardiac symptoms of resting chest pain described as tightness, unable angina, [place] Cardiovascular Society class IV angina, preoperative noncardiac surgery, coronary artery disease. Culprit 75% mid right coronary artery. 2. Successful percutaneous coronary intervention of the mid right coronary artery with a bare-metal stent from 75% to 0% with MARILYN 3 flow. 3. Cardiomyopathy, ejection fraction 45% with a cardiac index of 2.2 L/m2/min. RECOMMEND: 1. Aspirin 162 mg daily, Plavix 600 mg p.o. load, then 75 mg a day for 12-15 months. Note, if the patient does require surgery, he needs at least 2 weeks of aspirin and Plavix, preferably 4 weeks and optimally 6 weeks. At 6 weeks, his risk to come off aspirin and Plavix will be low and his risk for noncardiac surgery will be moderate. 2. Recommend medical management for cardiomyopathy with beta-blockers and DEANNA inhibitors. 3. Will check fasting lipids and CK. Treat those per guidelines provided there is no contraindication such as elevated liver function tests. As the patient is a chronic alcohol abuser, this may be contraindicated. 4. Will resume the patient's Eliquis on 09/25/2017. Jose Cage MD AWC/TI , 04:01 PM , 04:32 PM
[2017-09-24] MEDS ORDERED: IOHEXOL 350 MG/ML 50 ML BTL (for Cath Lab) OTHER ONE (16:59)
[2017-09-24] MEDS ORDERED: CLOPIDOGREL 300 MG TAB PO ONE (17:00)
[2017-09-24] MEDS: CARVEDILOL 3.125 MG TAB PO SCH (21:09)
[2017-09-25] VITALS (13 sets, daily range): BP systolic 100–124; BP diastolic 60–88; PULSE 61–77; RESP 16–18; TEMP 97.8–98.6; O2SAT 94–98
[2017-09-25] MEDS: TIROFIBAN INFUSION INJ 250 ML IV SCH (00:38)
[2017-09-25] MEDS: PIPERACIL-TAZO 3.375 GM PREMIX 50 ML IV SCH ×3 (02:00→18:15)
[2017-09-25 05:15] LABS: AUTOMATED NEUTROPHIL # 5.4 TH/MM3 (1.8-7.7); BASOPHIL # 0.1 TH/MM3 (0-0.2); EOSINOPHIL % 0.6 % (0.0-4.0); HEMATOCRIT 29.7 % (39.0-51.0); HEMOGLOBIN 10.2 GM/DL (13.0-17.0); LYMPH % 18.4 % (9.0-44.0); LYMPHOCYTE # 1.4 TH/MM3 (1.0-4.8); MEAN CELL VOLUME 105.5 FL (80.0-100.0); MEAN CORPUSCULAR HEMOGLOBIN 36.4 PG (27.0-34.0); MEAN CORPUSCULAR HGB CONC 34.5 % (32.0-36.0); MONO % 10.1 % (0.0-8.0); MONOCYTE # 0.8 TH/MM3 (0-0.9); NEUT % 69.9 % (16.0-70.0); PLATELET COUNT 211 TH/MM3 (150-450); RED BLOOD COUNT 2.81 MIL/MM3 (4.50-5.90); RED CELL DISTRIBUTION WIDTH 18.3 % (11.6-17.2); WHITE BLOOD COUNT 7.8 TH/MM3 (4.0-11.0)
[2017-09-25 05:37] LABS: ALBUMIN 1.7 GM/DL (3.4-5.0); BICARBONATE 23.5 MEQ/L (21.0-32.0); CALCIUM 7.7 MG/DL (8.5-10.1); CHOLESTEROL/ HDL RATIO 11.58 RATIO; CREATININE 0.61 MG/DL (0.60-1.30); DIRECT BILIRUBIN ADULT 3.7 MG/DL (0.0-0.2); HDL CHOLESTEROL 8.2 MG/DL (40.0-60.0); MAGNESIUM 2.1 MG/DL (1.5-2.5); TOTAL BILIRUBIN ADULT 5.7 MG/DL (0.2-1.0); TOTAL PROTEIN 6.3 GM/DL (6.4-8.2)
[2017-09-25] MEDS: DILTIAZEM-CD 180 MG CAP ER PO SCH (10:18)
[2017-09-25] MEDS: FOLIC ACID 1 MG TAB PO SCH (10:19)
[2017-09-25] MEDS: RAMIPRIL 2.5 MG CAP PO SCH (10:19)
[2017-09-25] MEDS: ASPIRIN 81 MG CHEW TAB PO SCH (10:19)
[2017-09-25] MEDS: MULTIVITAMIN TAB PO SCH (10:20)
[2017-09-25] MEDS: THIAMINE HCL 100 MG TAB PO SCH (10:20)
[2017-09-25] MEDS: CLOPIDOGREL 75 MG TAB PO SCH (10:21)
[2017-09-25] MEDS: clonazePAM 1 MG TAB PO SCH ×3 (10:21→18:15)
[2017-09-25] MEDS: DULoxetine HCl DR 60 MG CAP PO SCH (10:21)
[2017-09-25] MEDS: CARVEDILOL 3.125 MG TAB PO SCH ×2 (10:22→23:58)
[2017-09-25] MEDS: SODIUM CHLORIDE 0.9% FLUSH 10 ML FLUSH IV FLUSH SCH ×2 (10:23→21:00)
--- NOTE | 2017-09-25 12:00 | EKG ---
Date Performed: 09/24/2017 Time Performed: 20:06:20 PTAGE: 51 years EKG: Atrial fibrillation Prolonged QT interval Possible anterior infarct - age undetermined Low QRS voltages in limb leads Abnormal ECG PREVIOUS TRACING : 09/21/2017 16.35 When compared to prior EKG, the patient is no longer in rap id ventricular rate. DOCTOR: Roxana Haynes Interpretating Date/Time 09/25/2017 12:00:01
--- NOTE | 2017-09-25 12:20 | HHI.PR ---
Subjective Subjective Notes denies pain or new c/o Objective Vitals/I&O Vital Signs Date Time Temp Pulse Resp B/P (MAP) Pulse Ox O2 Delivery O2 Flow Rate FiO2 09/25/17 08:00 98.0 66 18 122/80 (94) 97 09/23/17 07:13 Room Air Labs Laboratory Tests Test 09/25/17 04:44 White Blood Count 7.8 Red Blood Count 2.81 Hemoglobin 10.2 Hematocrit 29.7 Mean Corpuscular Volume 105.5 Mean Corpuscular Hemoglobin 36.4 Mean Corpuscular Hemoglobin Concent 34.5 Red Cell Distribution Width 18.3 Platelet Count 211 Mean Platelet Volume 9.0 Neutrophils (%) (Auto) 69.9 Lymphocytes (%) (Auto) 18.4 Monocytes (%) (Auto) 10.1 Eosinophils (%) (Auto) 0.6 Basophils (%) (Auto) 1.0 Neutrophils # (Auto) 5.4 Lymphocytes # (Auto) 1.4 Monocytes # (Auto) 0.8 Eosinophils # (Auto) 0.0 Basophils # (Auto) 0.1 CBC Comment DIFF FINAL Differential Comment Blood Urea Nitrogen 15 Creatinine 0.61 Random Glucose 82 Total Protein 6.3 Albumin 1.7 Calcium Level 7.7 Magnesium Level 2.1 Alkaline Phosphatase 136 Aspartate Amino Transf (AST/SGOT) 146 Alanine Aminotransferase (ALT/SGPT) 60 Total Bilirubin 5.7 Direct Bilirubin 3.7 Sodium Level 134 Potassium Level 3.9 Chloride Level 103 Carbon Dioxide Level 23.5 Anion Gap 8 Estimat Glomerular Filtration Rate 138 Indirect Bilirubin 2.0 Total Creatine Kinase 38 Triglycerides Level 132 Cholesterol Level 95 LDL Cholesterol 60 HDL Cholesterol 8.2 Cholesterol/HDL Ratio 11.58 Abdomen: Non-distended, Non-tender A/P Assessment and Plan 51 year old male elevated liver enzymes; A-fib -s/p stent placement -MRCP shows no duct dilatation, direct bili is elevated -no RUQ pain -Will hold off on any surgery for now, will need cholecystostomy tube if has cholecystitis that does not respond to ABX -call if needed over weekend Gabriel Ashton MD Sep 25, 2017 12:20
--- NOTE | 2017-09-25 12:54 | HHI.PR ---
Subjective Remarks Patient seen this morning around 9:30 AM. Denies any chest pain or shortness breath. Denies nausea or vomiting. Ports walking becoming easier. Objective Vital Signs Date Time Temp Pulse Resp B/P (MAP) Pulse Ox O2 Delivery O2 Flow Rate FiO2 09/25/17 12:31 98.0 77 18 112/77 (89) 98 09/25/17 08:00 98.0 66 18 122/80 (94) 97 09/25/17 07:15 64 09/25/17 06:00 73 09/25/17 05:00 63 09/25/17 04:00 75 09/25/17 04:00 97.8 68 18 124/88 (100) 98 09/25/17 03:00 69 09/25/17 02:00 75 09/25/17 01:00 61 09/25/17 00:00 97.9 61 18 122/86 (98) 98 09/25/17 00:00 68 09/24/17 23:00 65 09/24/17 22:00 76 09/24/17 21:00 85 09/24/17 20:00 97.9 61 18 122/86 (98) 98 09/24/17 20:00 61 09/24/17 19:00 85 I/O 09/24/17 09/24/17 09/24/17 09/25/17 09/25/17 09/25/17 07:00 15:00 23:00 07:00 15:00 23:00 Intake Total 290 ml 720 ml 100 ml Output Total 200 ml 750 ml Balance 90 ml -30 ml 100 ml Intake Oral 240 ml 420 ml IV Total 50 ml 300 ml 100 ml Output Urine Total 200 ml 750 ml # Voids 2 # Bowel Movements 0 0 Result Diagram: 09/25/17 0444 09/25/17 0444 Objective Remarks GENERAL: Patient sitting up in bed.. Appears comfortable. Alert to person, place, date, year SKIN: Warm and dry. HEAD: Normocephalic. EYES: No scleral icterus. No injection or drainage. NECK: Supple, trachea midline. No JVD. CARDIOVASCULAR: Regular rate and rhythm without murmurs, gallops, or rubs. RESPIRATORY: Breath sounds equal bilaterally. No accessory muscle use. GASTROINTESTINAL: Abdomen soft, non-tender, nondistended. MUSCULOSKELETAL: No cyanosis, or edema. Neurologic. Patient exhibits poor attention, bilateral ataxia improved. BACK: Nontender without obvious deformity. No CVA tenderness. A/P Assessment and Plan //Atrial fibrillation with rapid ventricular response //Unstable angina with stenting here. Patient reports he is not on anticoagulation or medications for his atrial fibrillation secondary to noncompliance Diltiazem drip Wean drip as tolerated; transition to by mouth ACS rule out pending = Troponins negative. Off diltiazem drip. Possibly exacerbated by alcohol withdrawal controlled on by mouth diltiazem. Echocardiogram with EF of 45%. Due to the possibility of patient needing gallbladder surgery, will consult cardiology. = Cardiology following. Appreciate assistance. Possible cardiac catheterization pending discussion between cardiology and family. = 09/25. Status post cardiac catheterization 09/24 with stenting of RCA. Appreciate cardiology assistance. // Jaundice/transaminitis //Suspected acute cholecystitis. Patient likely has underlying liver disease Unclear etiology May be from alcohol abuse versus obstructive pathology CT of the abdomen/pelvis pending Monitor CMP = Liver ultrasound with suspected acute cholecystitis. HIDA scan confirms. Gastroenterology consulted. on Zosyn as per GI. General surgery consulted. I have also ordered cardiology for clearance prior to possible surgical intervention. = Continue on Zosyn for cholecystitis. Gastroenterology may opt for ERCP. Appreciate general surgery assistance //Anxiety Holding home Klonopin/Cymbalta as it is unclear as to when patient last took his home medications //Alcohol abuse //Acute alcohol withdrawal //Suspected chronic Wernicke-Korsakoff Thiamine/folate/multivitamin CIWA protocol Monitor for signs of withdrawal = Schedule Librium. Thiamine. Continue CIWA protocol. GI following. Appreciate assistance. = Improving. Continue scheduled Librium and CIWA protocol. FEN Heart healthy diet Electrolytes: Monitor and replete when necessary Heparin Discharge Planning Patient's continues with percutaneous cholecystostomy tube PT following. Recommends rehab = We will need to continue with antiplatelet therapy as per cardiology due to stenting. Can discharge when cleared by general surgery, GI. Dennis Vegas MD Sep 25, 2017 12:54
[2017-09-25 13:30] LABS: ALPHA-1-ANTITRYPSIN 232 mg/dL (100 - 190)
--- NOTE | 2017-09-25 13:34 | PD.CARD.PN ---
Subjective Subjective Remarks assymptomatic Objective Medications Current Medications Medications (Trade) Dose Ordered Sig/Marsha Route Start Time Stop Time Status Last Admin (Romazicon Inj) 0.2 mg Q1M PRN IV PUSH 09/21/17 20:45 (Ativan) 1 mg Q4H PRN PO 09/21/17 20:45 09/24/17 05:44 (Ativan Inj) 1 mg Q4H PRN IV PUSH 09/21/17 20:45 (Ativan) 2 mg Q2H PRN PO 09/21/17 20:45 (Ativan Inj) 2 mg Q2H PRN IV PUSH 09/21/17 20:45 09/25/17 00:41 (Ativan Inj) 2 mg Q1H PRN IV PUSH 09/21/17 20:45 (Ativan Inj) 2 mg Q15M PRN IV PUSH 09/21/17 20:45 09/24/17 19:08 (Tylenol) 650 mg Q4H PRN PO 09/21/17 21:00 (Zofran Inj) 4 mg Q6H PRN IVP 09/21/17 21:00 (Heparin Inj) 5,000 units Q8H SQ 09/21/17 22:00 Future Hold 09/24/17 05:37 (Narcan Inj) 0.4 mg UNSCH PRN IV PUSH 09/21/17 21:00 (Folate) 1 mg DAILY PO 09/22/17 09:00 09/25/17 10:19 (Theragran) 1 tab DAILY PO 09/22/17 09:00 09/25/17 10:20 (KlonoPIN) 1 mg TID PO 09/22/17 18:00 09/25/17 12:53 (Cymbalta Dr) 60 mg DAILY PO 09/23/17 09:00 09/25/17 10:21 (Cardizem Cd) 180 mg DAILY PO 09/23/17 09:00 09/25/17 10:18 (Vitamin B1) 100 mg DAILY PO 09/24/17 09:00 09/25/17 10:20 Piperacillin Sod/ Tazobactam Sod 50 ml @ 100 mls/hr Q8H IV 09/23/17 18:00 09/25/17 10:26 (NS Flush) 2 ml UNSCH PRN IV FLUSH 09/24/17 16:30 (NS Flush) 2 ml BID IV FLUSH 09/24/17 21:00 09/25/17 10:23 (Aspirin Chew) 162 mg DAILY PO 09/25/17 09:00 09/25/17 10:19 (Plavix) 75 mg DAILY PO 09/25/17 09:00 09/25/17 10:21 (Coreg) 3.125 mg BID PO 09/24/17 21:00 09/25/17 10:22 (Altace) 2.5 mg DAILY PO 09/25/17 09:00 09/25/17 10:19 Vital Signs / I&O Vital Signs Date Time Temp Pulse Resp B/P (MAP) Pulse Ox O2 Delivery O2 Flow Rate FiO2 09/25/17 12:31 98.0 77 18 112/77 (89) 98 09/25/17 08:00 98.0 66 18 122/80 (94) 97 09/25/17 07:15 64 09/25/17 06:00 73 09/25/17 05:00 63 09/25/17 04:00 75 09/25/17 04:00 97.8 68 18 124/88 (100) 98 09/25/17 03:00 69 09/25/17 02:00 75 09/25/17 01:00 61 09/25/17 00:00 97.9 61 18 122/86 (98) 98 09/25/17 00:00 68 09/24/17 23:00 65 09/24/17 22:00 76 09/24/17 21:00 85 09/24/17 20:00 97.9 61 18 122/86 (98) 98 09/24/17 20:00 61 09/24/17 19:00 85 I/O 09/24/17 09/24/17 09/24/17 09/25/17 09/25/17 09/25/17 07:00 15:00 23:00 07:00 15:00 23:00 Intake Total 290 ml 720 ml 150 ml Output Total 200 ml 750 ml Balance 90 ml -30 ml 150 ml Intake Oral 240 ml 420 ml IV Total 50 ml 300 ml 150 ml Output Urine Total 200 ml 750 ml # Voids 2 # Bowel Movements 0 0 Physical Exam GENERAL: SKIN: Warm and dry. HEAD: Normocephalic. EYES: No scleral icterus. No injection or drainage. NECK: Supple, trachea midline. No JVD or lymphadenopathy. CARDIOVASCULAR: Regular rate and rhythm without murmurs, gallops, or rubs. RESPIRATORY: Breath sounds equal bilaterally. No accessory muscle use. GASTROINTESTINAL: Abdomen soft, non-tender, nondistended. MUSCULOSKELETAL: No cyanosis, or edema. BACK: Nontender without obvious deformity. No CVA tenderness. Laboratory Laboratory Tests Test 09/25/17 04:44 White Blood Count 7.8 TH/MM3 Red Blood Count 2.81 MIL/MM3 Hemoglobin 10.2 GM/DL Hematocrit 29.7 % Mean Corpuscular Volume 105.5 FL Mean Corpuscular Hemoglobin 36.4 PG Mean Corpuscular Hemoglobin Concent 34.5 % Red Cell Distribution Width 18.3 % Platelet Count 211 TH/MM3 Mean Platelet Volume 9.0 FL Neutrophils (%) (Auto) 69.9 % Lymphocytes (%) (Auto) 18.4 % Monocytes (%) (Auto) 10.1 % Eosinophils (%) (Auto) 0.6 % Basophils (%) (Auto) 1.0 % Neutrophils # (Auto) 5.4 TH/MM3 Lymphocytes # (Auto) 1.4 TH/MM3 Monocytes # (Auto) 0.8 TH/MM3 Eosinophils # (Auto) 0.0 TH/MM3 Basophils # (Auto) 0.1 TH/MM3 CBC Comment DIFF FINAL Differential Comment Blood Urea Nitrogen 15 MG/DL Creatinine 0.61 MG/DL Random Glucose 82 MG/DL Total Protein 6.3 GM/DL Albumin 1.7 GM/DL Calcium Level 7.7 MG/DL Magnesium Level 2.1 MG/DL Alkaline Phosphatase 136 U/L Aspartate Amino Transf (AST/SGOT) 146 U/L Alanine Aminotransferase (ALT/SGPT) 60 U/L Total Bilirubin 5.7 MG/DL Direct Bilirubin 3.7 MG/DL Sodium Level 134 MEQ/L Potassium Level 3.9 MEQ/L Chloride Level 103 MEQ/L Carbon Dioxide Level 23.5 MEQ/L Anion Gap 8 MEQ/L Estimat Glomerular Filtration Rate 138 ML/MIN Indirect Bilirubin 2.0 MG/DL Total Creatine Kinase 38 U/L Triglycerides Level 132 MG/DL Cholesterol Level 95 MG/DL LDL Cholesterol 60 MG/DL HDL Cholesterol 8.2 MG/DL Cholesterol/HDL Ratio 11.58 RATIO Assessment and Plan Problem List: (1) Atrial fibrillation with rapid ventricular response ICD Codes: I48.91 - Unspecified atrial fibrillation Status: Acute (2) History of alcohol abuse ICD Codes: Z87.898 - Personal history of other specified conditions Status: Acute (3) History of tobacco use ICD Codes: Z87.891 - Personal history of nicotine dependence Status: Acute (4) CAD (coronary artery disease) ICD Codes: I25.10 - Atherosclerotic heart disease of [place] coronary artery without angina pectoris (5) Unstable angina ICD Codes: I20.0 - Unstable angina Assessment and Plan 1.) CAD - pod #1 bms mid rca, assymptomatic, continue aspirin, plavix, coreg, altace, statin held due to alchoholism and elevated lfts; i explained to him and his son that he may have life threatening stent thrombosis if he is noncomplian twith dapt, they understand and agree for him to be compliant, d/c tobacco, f/u with me in my office 09/28/17 Jose Cage MD Sep 25, 2017 13:34
[2017-09-25 14:17] LABS: SMOOTH MUSCLE TOTAL AUTOABS Negative (Negative)
--- NOTE | 2017-09-25 15:56 | HHI.GIFU ---
Subjective Remarks Sleeping resting quietly on left side Arouses to verbal stimuli Denies any acute nausea, vomiting, diarrhea or constipation Denies any abdominal pain (Fatuma Nolan) Objective Vitals I&O Vital Signs Date Time Temp Pulse Resp B/P (MAP) Pulse Ox O2 Delivery O2 Flow Rate FiO2 09/25/17 12:31 98.0 77 18 112/77 (89) 98 09/25/17 08:00 98.0 66 18 122/80 (94) 97 09/25/17 07:15 64 09/25/17 06:00 73 09/25/17 05:00 63 09/25/17 04:00 75 09/25/17 04:00 97.8 68 18 124/88 (100) 98 09/25/17 03:00 69 09/25/17 02:00 75 09/25/17 01:00 61 09/25/17 00:00 97.9 61 18 122/86 (98) 98 09/25/17 00:00 68 09/24/17 23:00 65 09/24/17 22:00 76 09/24/17 21:00 85 09/24/17 20:00 97.9 61 18 122/86 (98) 98 09/24/17 20:00 61 09/24/17 19:00 85 I/O 09/24/17 09/24/17 09/24/17 09/25/17 09/25/17 09/25/17 07:00 15:00 23:00 07:00 15:00 23:00 Intake Total 290 ml 720 ml 150 ml Output Total 200 ml 750 ml Balance 90 ml -30 ml 150 ml Intake Oral 240 ml 420 ml IV Total 50 ml 300 ml 150 ml Output Urine Total 200 ml 750 ml # Voids 2 # Bowel Movements 0 0 Laboratory Laboratory Tests Test 09/25/17 04:44 White Blood Count 7.8 Red Blood Count 2.81 Hemoglobin 10.2 Hematocrit 29.7 Mean Corpuscular Volume 105.5 Mean Corpuscular Hemoglobin 36.4 Mean Corpuscular Hemoglobin Concent 34.5 Red Cell Distribution Width 18.3 Platelet Count 211 Mean Platelet Volume 9.0 Neutrophils (%) (Auto) 69.9 Lymphocytes (%) (Auto) 18.4 Monocytes (%) (Auto) 10.1 Eosinophils (%) (Auto) 0.6 Basophils (%) (Auto) 1.0 Neutrophils # (Auto) 5.4 Lymphocytes # (Auto) 1.4 Monocytes # (Auto) 0.8 Eosinophils # (Auto) 0.0 Basophils # (Auto) 0.1 CBC Comment DIFF FINAL Differential Comment Blood Urea Nitrogen 15 Creatinine 0.61 Random Glucose 82 Total Protein 6.3 Albumin 1.7 Calcium Level 7.7 Magnesium Level 2.1 Alkaline Phosphatase 136 Aspartate Amino Transf (AST/SGOT) 146 Alanine Aminotransferase (ALT/SGPT) 60 Total Bilirubin 5.7 Direct Bilirubin 3.7 Sodium Level 134 Potassium Level 3.9 Chloride Level 103 Carbon Dioxide Level 23.5 Anion Gap 8 Estimat Glomerular Filtration Rate 138 Indirect Bilirubin 2.0 Total Creatine Kinase 38 Triglycerides Level 132 Cholesterol Level 95 LDL Cholesterol 60 HDL Cholesterol 8.2 Cholesterol/HDL Ratio 11.58 Imaging Last Impressions Liver Ultrasound 09/23/17 0000 Signed Impressions: Service Date/Time: Saturday, September 23, 2017 14:43 - CONCLUSION: 1. Cholelithiasis with findings suspicious for acute cholecystitis. Radionuclide imaging is recommended for further evaluation if clinically indicated. Reid Whitmore MD Head CT 09/23/17 0000 Signed Impressions: Service Date/Time: Saturday, September 23, 2017 20:51 - CONCLUSION: No acute disease. Nitin Scanlon MD Cholangiopancreatography MRI 09/23/17 0000 Signed Impressions: Service Date/Time: Saturday, September 23, 2017 21:30 - CONCLUSION: 1. Cholelithiasis. 2. No biliary ductal dilatation. 3. Moderate amount of ascites. Nitin Scanlon MD Hepatobiliary Scan Nuclear Medicine 09/22/17 0000 Signed Impressions: Service Date/Time: Friday, September 22, 2017 13:52 - CONCLUSION: Nonvisualization of the gallbladder which may reflect acute cholecystitis. Delayed imaging is to be performed. Reid Whitmore MD ADDENDUM: Delayed imaging is obtained but no definite activity is identified within the gallbladder. Therefore, cystic duct obstruction is not excluded. Tien Donato MD Abdomen/Pelvis CT 09/22/17 0000 Signed Impressions: Service Date/Time: Friday, September 22, 2017 03:08 - CONCLUSION: 1. Small amount of ascites. Etiology is unclear. The liver is unremarkable although it is incompletely evaluated due to lack of contrast. 2. Nonspecific central mesenteric adenopathy measuring up to 1.1 cm. 3. Otherwise, no acute abnormality is demonstrated on this nonenhanced examination. Kenny Dee MD Chest X-Ray 09/21/17 5037 Signed Impressions: Service Date/Time: Thursday, September 21, 2017 17:29 - CONCLUSION: Mild left base parenchymal opacity Tien Narvaez MD Physical Exam HEENT: normocephalic; atraumatic; icteric sclera mild CHEST: Mild diminished breath sounds CARDIAC: Heart rate controlled ABDOMEN: taut, mild distention, nontender; bowel sounds are present in all four quadrants. EXTREMITIES: No clubbing, cyanosis, or edema. Obese SKIN: Mild icterus; no rash [employer]: Sleeping but responds to verbal stimuli (Fatuma Nolan) Assessment and Plan Plan Assessment:/History - Abnormal HIDA scan, acute cholecystitis with exam, initially had right upper quadrant tenderness noticed which is now controlled Nausea resolved - Transaminitis- ETOH hepatitis. Previously drinking 20 beers daily, has recently cut back to approx 9 beers a day. Has not had more extensive liver work up. Hepatitis panel negative Currently patient is not interested in any other GI procedures CT abdomen and pelvis W/O IV contrast --> Small amount of ascites. Nonspecific central mesenteric adenopathy up to 1.1 cm. Liver ultrasound done on 09/23/17, acute cholelithiasis Anemia, macrocytic- likely from folate deficiency given ETOH history. Possible cystic duct obstruction, refuses any further GI testing Plan: ETOH cessation and supportive care Per GS, no surgical intervention for now but may need biliary tube. Monitor labs, and any obvious episodes of hemorrhage GI will be glad to come involved in this patient's care if he is willing. Can follow-up as an outpatient (Fatuma Nolan) Plan Patient was seen and examined, agree eval of note, still elevated liver function tests, could be in alcohol withdrawal, most likely cholecystitis this will be managed by general surgery and radiology, we will follow-up as needed at this point (Loretta Cancino MD) Fatuma Nolan Sep 25, 2017 15:56 Loretta Cancino MD Sep 25, 2017 18:19
[2017-09-26] VITALS (10 sets, daily range): BP systolic 91–129; BP diastolic 56–81; PULSE 63–84; RESP 16–22; TEMP 97.4–98.7; O2SAT 96–99
[2017-09-26] MEDS: PIPERACIL-TAZO 3.375 GM PREMIX 50 ML IV SCH ×3 (03:13→18:35)
[2017-09-26 07:26] LABS: AUTOMATED NEUTROPHIL # 5.9 TH/MM3 (1.8-7.7); BASOPHIL # 0.1 TH/MM3 (0-0.2); EOSINOPHIL # 0.1 TH/MM3 (0-0.4); EOSINOPHIL % 0.7 % (0.0-4.0); HEMATOCRIT 29.6 % (39.0-51.0); HEMOGLOBIN 10.3 GM/DL (13.0-17.0); LYMPHOCYTE # 1.3 TH/MM3 (1.0-4.8); MEAN CELL VOLUME 105.9 FL (80.0-100.0); MEAN CORPUSCULAR HEMOGLOBIN 36.9 PG (27.0-34.0); MEAN CORPUSCULAR HGB CONC 34.8 % (32.0-36.0); MEAN PLATELET VOLUME 9.3 FL (7.0-11.0); MONO % 11.3 % (0.0-8.0); MONOCYTE # 0.9 TH/MM3 (0-0.9); PLATELET COUNT 220 TH/MM3 (150-450); RED BLOOD COUNT 2.79 MIL/MM3 (4.50-5.90); RED CELL DISTRIBUTION WIDTH 17.9 % (11.6-17.2); WHITE BLOOD COUNT 8.3 TH/MM3 (4.0-11.0)
[2017-09-26 08:15] LABS: BICARBONATE 24.8 MEQ/L (21.0-32.0); CALCIUM 7.8 MG/DL (8.5-10.1); CREATININE 0.72 MG/DL (0.60-1.30)
[2017-09-26] MEDS: ASPIRIN 81 MG CHEW TAB PO SCH (09:43)
[2017-09-26] MEDS: CARVEDILOL 3.125 MG TAB PO SCH ×2 (09:43→20:52)
[2017-09-26] MEDS: SODIUM CHLORIDE 0.9% FLUSH 10 ML FLUSH IV FLUSH SCH ×2 (09:43→20:52)
[2017-09-26] MEDS: DILTIAZEM-CD 180 MG CAP ER PO SCH (09:43)
[2017-09-26] MEDS: DULoxetine HCl DR 60 MG CAP PO SCH (09:44)
[2017-09-26] MEDS: CLOPIDOGREL 75 MG TAB PO SCH (09:44)
[2017-09-26] MEDS: MULTIVITAMIN TAB PO SCH (09:44)
[2017-09-26] MEDS: clonazePAM 1 MG TAB PO SCH ×3 (09:44→18:36)
[2017-09-26] MEDS: THIAMINE HCL 100 MG TAB PO SCH (09:44)
[2017-09-26] MEDS: FOLIC ACID 1 MG TAB PO SCH (09:44)
[2017-09-26] MEDS: RAMIPRIL 2.5 MG CAP PO SCH (09:44)
--- NOTE | 2017-09-26 10:18 | EKG ---
Date Performed: 09/25/2017 Time Performed: 06:07:24 PTAGE: 51 years EKG: Atrial fibrillation Possible anterior infarct - age undetermined Low QRS voltages in limb l rachael Abnormal ECG PREVIOUS TRACING : 09/24/2017 20.06 DOCTOR: Segre Blair Interpretating Date/Time 09/26/2017 10:18:31
[2017-09-26] MEDS ORDERED: FOLI1TAB6 PO (14:49)
[2017-09-26] MEDS ORDERED: ASPI81 PO (14:49)
[2017-09-26] MEDS ORDERED: CARV3.125 PO (14:49)
[2017-09-26] MEDS ORDERED: PLAV75TA29 PO (14:49)
[2017-09-26] MEDS ORDERED: RAMI2.5C PO (14:49)
[2017-09-26] MEDS ORDERED: THIA100 PO (14:49)
[2017-09-26] MEDS ORDERED: CYMB60CA PO (14:50)
[2017-09-26] MEDS ORDERED: CLON1 PO (14:50)
[2017-09-26] MEDS ORDERED: AUGM875T3 PO (14:52)
--- NOTE | 2017-09-26 14:52 | HHI.DS ---
Discharge Summary Admission Date Sep 21, 2017 at 20:58 Discharge Date: Sep 27, 2017 Admitting Diagnosis AFRVR; alcoholism; alcohol hepatitis (1) Unstable angina ICD Code: I20.0 - Unstable angina Diagnosis: Principal (2) CAD (coronary artery disease) ICD Code: I25.10 - Atherosclerotic heart disease of [place] coronary artery without angina pectoris Diagnosis: Principal (3) Cholecystitis ICD Code: K81.9 - Cholecystitis, unspecified Diagnosis: Principal Procedures 09/24/2017 Cardiac cath 1. New onset cardiac symptoms of resting chest pain described as tightness, unable angina, [place] Cardi[employer] class IV angina, preoperative noncardiac surgery, coronary artery disease. Culprit 75% mid right coronary artery. 2. Successful percutaneous coronary intervention of the mid right coronary artery with a bare-metal stent from 75% to 0% with MARILYN 3 flow. 3. Cardiomyopathy, ejection fraction 45% with a cardiac index of 2.2 L/m2/min. Brief History - From Admission Male with past medical history significant for atrial fibrillation, not currently on anticoagulation, and anxiety who presents to the emergency department for further evaluation. The patient was seen in the [facility] where he was found to be in atrial fibrillation with rapid ventricular response and sent to [place] emergency department for further treatment. Per the patient, he was seen at the [facility] for evaluation of 2 weeks of weakness. He endorses associated dizziness. Positive palpitations. Also complains of accompanying shortness of breath. Complains of heartburn. Denies nausea/vomiting. Denies episodes of diaphoresis. Denies lateralizing signs/symptoms. CBC/BMP: 09/26/17 0515 09/26/17 0515 Significant Findings Laboratory Tests Test 09/23/17 16:26 09/24/17 08:32 09/25/17 04:44 09/26/17 05:15 Iron Level 45 MCG/DL (65-175) Total Iron Binding Capacity 161 MCG/DL (250-450) Ferritin 788 NG/ML (26-388) Aehrd-8-Ksujjeqkbfy 232 mg/dL (100 - 190) Lipase 534 U/L (73-393) Immunoglobulin A 656 mg/dL (81-463) Total Protein 6.2 GM/DL (6.4-8.2) 6.3 GM/DL (6.4-8.2) Albumin 1.9 GM/DL (3.4-5.0) 1.7 GM/DL (3.4-5.0) Calcium Level 8.1 MG/DL (8.5-10.1) 7.7 MG/DL (8.5-10.1) 7.8 MG/DL (8.5-10.1) Alkaline Phosphatase 138 U/L (45-117) 136 U/L (45-117) Aspartate Amino Transf (AST/SGOT) 131 U/L (15-37) 146 U/L (15-37) Total Bilirubin 6.1 MG/DL (0.2-1.0) 5.7 MG/DL (0.2-1.0) Sodium Level 133 MEQ/L (136-145) 134 MEQ/L (136-145) 132 MEQ/L (136-145) Red Blood Count 2.81 MIL/MM3 (4.50-5.90) 2.79 MIL/MM3 (4.50-5.90) Hemoglobin 10.2 GM/DL (13.0-17.0) 10.3 GM/DL (13.0-17.0) Hematocrit 29.7 % (39.0-51.0) 29.6 % (39.0-51.0) Mean Corpuscular Volume 105.5 FL (80.0-100.0) 105.9 FL (80.0-100.0) Mean Corpuscular Hemoglobin 36.4 PG (27.0-34.0) 36.9 PG (27.0-34.0) Red Cell Distribution Width 18.3 % (11.6-17.2) 17.9 % (11.6-17.2) Monocytes (%) (Auto) 10.1 % (0.0-8.0) 11.3 % (0.0-8.0) Direct Bilirubin 3.7 MG/DL (0.0-0.2) Indirect Bilirubin 2.0 MG/DL (0.0-0.8) Total Creatine Kinase 38 U/L (39-308) Cholesterol Level 95 MG/DL (120-200) HDL Cholesterol 8.2 MG/DL (40.0-60.0) Neutrophils (%) (Auto) 71.0 % (16.0-70.0) Imaging Last Impressions Liver Ultrasound 09/23/17 0000 Signed Impressions: Service Date/Time: Saturday, September 23, 2017 14:43 - CONCLUSION: 1. Cholelithiasis with findings suspicious for acute cholecystitis. Radionuclide imaging is recommended for further evaluation if clinically indicated. Reid Whitmore MD Head CT 09/23/17 0000 Signed Impressions: Service Date/Time: Saturday, September 23, 2017 20:51 - CONCLUSION: No acute disease. Nitin Scanlon MD Cholangiopancreatography MRI 09/23/17 0000 Signed Impressions: Service Date/Time: Saturday, September 23, 2017 21:30 - CONCLUSION: 1. Cholelithiasis. 2. No biliary ductal dilatation. 3. Moderate amount of ascites. Nitin Scanlon MD Hepatobiliary Scan Nuclear Medicine 09/22/17 0000 Signed Impressions: Service Date/Time: Friday, September 22, 2017 13:52 - CONCLUSION: Nonvisualization of the gallbladder which may reflect acute cholecystitis. Delayed imaging is to be performed. Reid Whitmore MD ADDENDUM: Delayed imaging is obtained but no definite activity is identified within the gallbladder. Therefore, cystic duct obstruction is not excluded. Tien Donato MD Abdomen/Pelvis CT 09/22/17 0000 Signed Impressions: Service Date/Time: Friday, September 22, 2017 03:08 - CONCLUSION: 1. Small amount of ascites. Etiology is unclear. The liver is unremarkable although it is incompletely evaluated due to lack of contrast. 2. Nonspecific central mesenteric adenopathy measuring up to 1.1 cm. 3. Otherwise, no acute abnormality is demonstrated on this nonenhanced examination. Kenny Dee MD Chest X-Ray 09/21/17 2192 Signed Impressions: Service Date/Time: Thursday, September 21, 2017 17:29 - CONCLUSION: Mild left base parenchymal opacity Tien Narvaez MD PE at Discharge GENERAL: Alert, oriented 3, NAD. SKIN: Warm and dry. HEAD: Normocephalic. EYES: No scleral icterus. No injection or drainage. NECK: Supple, trachea midline. No JVD or lymphadenopathy. CARDIOVASCULAR: Regular rate and rhythm without murmurs, gallops, or rubs. RESPIRATORY: Breath sounds equal bilaterally. No accessory muscle use. GASTROINTESTINAL: Abdomen soft, non-tender, nondistended. MUSCULOSKELETAL: No cyanosis, or edema. BACK: Nontender without obvious deformity. No CVA tenderness. Pt update on day of discharge Patient was originally discharged on 09/26/2017. However, he sustained a mechanical fall and we kept him overnight. Patient continued to do well. No acute concerns. He is resting in bed. He again refuses to consider SNF. Hospital Course Mr. Jiménez is a 51 year old male with a history of atrial fibrillation, alcohol abuse, presented to the ED on 09/21/2017 via EMS at the request of his son from the [facility] for A. fib with RVR. Cardiology was consulted for Afib and after evaluation cardiology recommended cardiac cath for unstable angina. Patient underwent a bare metal stent placement. Patient's lab work also indicated elevation of liver enzymes as well as bilirubin. GI and general surgery were consulted. General surgery recommended medical treatment for acute cholecystitis. Patient was given Zosyn in the hospital. Since patient's labs improved, he did not require cholecystostomy tube. I discussed covering General surgeon on the weekend on 09/26/2017 who agreed with our plan to discharge patient on PO abx and follow up with General surgery. Patient was evaluated by PT and SNF Was recommended. However, patient refused to go to SNF. His son informed us that he has good support and home and recently home was renovated to make it safer for the patient. Patient was subsequently discharged on 2017 with home health. Pt Condition on Discharge: Good Discharge Disposition: Disch w/ Home Health Serv Discharge Time: > 30 minutes Discharge Instructions DIET: Follow Instructions for: Heart Healthy Diet Activities you can perform: Regular-No Restrictions Follow up Referrals: PCP Follow-up - 1 Week with [facility] - 2 Weeks with Gabriel Ashton MD New Medications: Amoxicillin-Clavulanate (Augmentin) 875-125 Mg Tab 1 TAB PO BID for Infection, #28 TAB 0 Refills Aspirin (Tgt Aspirin) 81 Mg Chw 162 MG PO DAILY for Blood Clot Prevention, #90 EA 3 Refills Carvedilol (Coreg) 3.125 Mg Tab 3.125 MG PO BID for Heart, #180 TAB 3 Refills Clopidogrel (Plavix) 75 Mg Tab 75 MG PO DAILY for Blood Clot Prevention, #90 TAB 3 Refills Diltiazem CD 24 HR (Cardizem CD 24 HR) 180 Mg Caper 180 MG PO DAILY for heart for 30 Days, #30 CAP Folic Acid (Folic Acid) 1 Mg Tablet 1 MG PO DAILY for Vitamins, #30 TAB Ramipril (Ramipril) 2.5 Mg Cap 2.5 MG PO DAILY for Blood Pressure Management, #90 CAP 3 Refills Thiamine HCl (Gnp Vitamin B-1) 100 Mg Tab 100 MG PO DAILY for Vitamins, #30 TAB Changed Medications: Clonazepam (Klonopin) 1 Mg Tab 1 MG PO TID PRN for ANXIETY, #30 TAB 0 Refills (Changed from: 90) Duloxetine DR (Cymbalta DR) 60 Mg Capdr 60 MG PO DAILY, #30 CAP 0 Refills (Changed from: Unknown Dose ) Derian Galicia DO Sep 26, 2017 14:52
--- NOTE | 2017-09-26 14:55 | HHI.FF ---
Face to Face Verification Diagnosis: (1) Cholecystitis (2) CAD (coronary artery disease) (3) Atrial fibrillation with rapid ventricular response Physical Therapy Order: Evaluate and Treat, Improve ambulation, Strength and gait training Occupational Therapy Order: Evaluate and Treat, Improve ADL, Gross motor coordination, Fine motor coordination Home Health Nursing Order: Medical education Signs/symptoms of disease process Diabetic education Medication education-adverse effect Nursing assessment with vital signs I have seen patient Geovanny Jiménez on 09/26/17. My clinical findings support the need for the requested home health care services because: Ltd mobility - disease progression Deconditioned w/ increased weakness Limited ability to care for self Need for psychosocial assistance Impaired cognition/judgement High risk of falls Infection w/ risk of complications I certify that my clinical findings support that this patient is homebound because: Impaired cognitive ability/safety Unsteady gait/balance Unsafe to leave home unassisted Need for psychosocial assistance Unable to use public transportation Derian Galicia DO Sep 26, 2017 14:55
--- NOTE | 2017-09-26 16:57 | PD.CARD.PN ---
Subjective Subjective Remarks assymptomatic Objective Medications Current Medications Medications (Trade) Dose Ordered Sig/Marsha Route Start Time Stop Time Status Last Admin (Romazicon Inj) 0.2 mg Q1M PRN IV PUSH 09/21/17 20:45 (Ativan) 1 mg Q4H PRN PO 09/21/17 20:45 09/24/17 05:44 (Ativan Inj) 1 mg Q4H PRN IV PUSH 09/21/17 20:45 (Ativan) 2 mg Q2H PRN PO 09/21/17 20:45 (Ativan Inj) 2 mg Q2H PRN IV PUSH 09/21/17 20:45 09/25/17 00:41 (Ativan Inj) 2 mg Q1H PRN IV PUSH 09/21/17 20:45 (Ativan Inj) 2 mg Q15M PRN IV PUSH 09/21/17 20:45 09/24/17 19:08 (Tylenol) 650 mg Q4H PRN PO 09/21/17 21:00 (Zofran Inj) 4 mg Q6H PRN IVP 09/21/17 21:00 (Heparin Inj) 5,000 units Q8H SQ 09/21/17 22:00 Future Hold 09/24/17 05:37 (Narcan Inj) 0.4 mg UNSCH PRN IV PUSH 09/21/17 21:00 (Folate) 1 mg DAILY PO 09/22/17 09:00 09/26/17 09:44 (Theragran) 1 tab DAILY PO 09/22/17 09:00 09/26/17 09:44 (KlonoPIN) 1 mg TID PO 09/22/17 18:00 09/26/17 12:23 (Cymbalta Dr) 60 mg DAILY PO 09/23/17 09:00 09/26/17 09:44 (Cardizem Cd) 180 mg DAILY PO 09/23/17 09:00 09/26/17 09:43 (Vitamin B1) 100 mg DAILY PO 09/24/17 09:00 09/26/17 09:44 Piperacillin Sod/ Tazobactam Sod 50 ml @ 100 mls/hr Q8H IV 09/23/17 18:00 09/26/17 12:22 (NS Flush) 2 ml UNSCH PRN IV FLUSH 09/24/17 16:30 (NS Flush) 2 ml BID IV FLUSH 09/24/17 21:00 09/26/17 09:43 (Aspirin Chew) 162 mg DAILY PO 09/25/17 09:00 09/26/17 09:43 (Plavix) 75 mg DAILY PO 09/25/17 09:00 09/26/17 09:44 (Coreg) 3.125 mg BID PO 09/24/17 21:00 09/26/17 09:43 (Altace) 2.5 mg DAILY PO 09/25/17 09:00 09/26/17 09:44 Vital Signs / I&O Vital Signs Date Time Temp Pulse Resp B/P (MAP) Pulse Ox O2 Delivery O2 Flow Rate FiO2 09/26/17 16:00 84 09/26/17 15:30 96 21 09/26/17 12:07 98.4 75 18 113/70 (84) 99 09/26/17 12:00 63 09/26/17 08:03 97.5 82 22 121/81 (94) 99 09/26/17 08:00 71 09/26/17 04:00 98.6 75 18 91/56 (68) 98 09/26/17 00:00 98.7 76 16 118/68 (85) 98 09/25/17 20:17 98.6 71 16 124/78 (93) 94 I/O 09/25/17 09/25/17 09/25/17 09/26/17 09/26/17 09/26/17 07:00 15:00 23:00 07:00 15:00 23:00 Intake Total 720 ml 150 ml 600 ml 50 ml 50 ml Output Total 750 ml Balance -30 ml 150 ml 600 ml 50 ml 50 ml Intake Oral 420 ml 600 ml IV Total 300 ml 150 ml 50 ml 50 ml Output Urine Total 750 ml # Voids 2 3 # Bowel Movements 0 Physical Exam GENERAL: SKIN: Warm and dry. HEAD: Normocephalic. EYES: No scleral icterus. No injection or drainage. NECK: Supple, trachea midline. No JVD or lymphadenopathy. CARDIOVASCULAR: Regular rate and rhythm without murmurs, gallops, or rubs. RESPIRATORY: Breath sounds equal bilaterally. No accessory muscle use. GASTROINTESTINAL: Abdomen soft, non-tender, nondistended. MUSCULOSKELETAL: No cyanosis, or edema. BACK: Nontender without obvious deformity. No CVA tenderness. Laboratory Laboratory Tests Test 09/26/17 05:15 White Blood Count 8.3 TH/MM3 Red Blood Count 2.79 MIL/MM3 Hemoglobin 10.3 GM/DL Hematocrit 29.6 % Mean Corpuscular Volume 105.9 FL Mean Corpuscular Hemoglobin 36.9 PG Mean Corpuscular Hemoglobin Concent 34.8 % Red Cell Distribution Width 17.9 % Platelet Count 220 TH/MM3 Mean Platelet Volume 9.3 FL Neutrophils (%) (Auto) 71.0 % Lymphocytes (%) (Auto) 16.0 % Monocytes (%) (Auto) 11.3 % Eosinophils (%) (Auto) 0.7 % Basophils (%) (Auto) 1.0 % Neutrophils # (Auto) 5.9 TH/MM3 Lymphocytes # (Auto) 1.3 TH/MM3 Monocytes # (Auto) 0.9 TH/MM3 Eosinophils # (Auto) 0.1 TH/MM3 Basophils # (Auto) 0.1 TH/MM3 CBC Comment DIFF FINAL Differential Comment Blood Urea Nitrogen 16 MG/DL Creatinine 0.72 MG/DL Random Glucose 80 MG/DL Calcium Level 7.8 MG/DL Sodium Level 132 MEQ/L Potassium Level 3.6 MEQ/L Chloride Level 100 MEQ/L Carbon Dioxide Level 24.8 MEQ/L Anion Gap 7 MEQ/L Estimat Glomerular Filtration Rate 114 ML/MIN Assessment and Plan Problem List: (1) Atrial fibrillation with rapid ventricular response ICD Codes: I48.91 - Unspecified atrial fibrillation Status: Acute (2) History of alcohol abuse ICD Codes: Z87.898 - Personal history of other specified conditions Status: Acute (3) History of tobacco use ICD Codes: Z87.891 - Personal history of nicotine dependence Status: Acute (4) CAD (coronary artery disease) ICD Codes: I25.10 - Atherosclerotic heart disease of [place] coronary artery without angina pectoris (5) Unstable angina ICD Codes: I20.0 - Unstable angina Assessment and Plan 1.) CAD - pod #2 bms mid rca, assymptomatic, continue aspirin, plavix, coreg, altace, statin held due to alchoholism and elevated lfts; i explained to him and his son that he may have life threatening stent thrombosis if he is noncompliant with dapt, they understand and agree for him to be compliant, d/c tobacco, f/u with me in my office 09/28/17, d/w patient and his son again today Jose Cage MD Sep 26, 2017 16:57
--- NOTE | 2017-09-26 17:12 | HHI.PR ---
Subjective Remarks Follow-up for acute cholecystitis, alcoholic liver disease, CAD status post bare -metal stent placement. Patient is currently doing well. He was resting in bed. Discussed with patient and his son. They felt that they have everything at home to go home with home health. Patient was in fact discharged. However he went to the bathroom and tripped and fell on the floor. I evaluated the patient after the fall. He did not lose consciousness. He did hit his head but no neurological symptoms. We discussed about staying in the hospital today for observation. If he continues to do well, he can go home tomorrow. I also discussed with patient regarding SNF option. He does not want to go to rehab. Objective Vitals Vital Signs Date Time Temp Pulse Resp B/P (MAP) Pulse Ox O2 Delivery O2 Flow Rate FiO2 09/26/17 16:00 84 09/26/17 15:30 96 21 09/26/17 12:07 98.4 75 18 113/70 (84) 99 09/26/17 12:00 63 09/26/17 08:03 97.5 82 22 121/81 (94) 99 09/26/17 08:00 71 09/26/17 04:00 98.6 75 18 91/56 (68) 98 09/26/17 00:00 98.7 76 16 118/68 (85) 98 09/25/17 20:17 98.6 71 16 124/78 (93) 94 I/O 09/25/17 09/25/17 09/25/17 09/26/17 09/26/17 09/26/17 06:59 14:59 22:59 06:59 14:59 22:59 Intake Total 720 ml 150 ml 600 ml 50 ml 50 ml Output Total 750 ml Balance -30 ml 150 ml 600 ml 50 ml 50 ml Intake Oral 420 ml 600 ml IV Total 300 ml 150 ml 50 ml 50 ml Output Urine Total 750 ml # Voids 2 3 # Bowel Movements 0 Result Diagram: 09/26/17 0515 09/26/17 0515 Imaging Last Impressions Liver Ultrasound 09/23/17 0000 Signed Impressions: Service Date/Time: Saturday, September 23, 2017 14:43 - CONCLUSION: 1. Cholelithiasis with findings suspicious for acute cholecystitis. Radionuclide imaging is recommended for further evaluation if clinically indicated. Reid Whitmore MD Head CT 09/23/17 0000 Signed Impressions: Service Date/Time: Saturday, September 23, 2017 20:51 - CONCLUSION: No acute disease. Nitin Scanlon MD Cholangiopancreatography MRI 09/23/17 0000 Signed Impressions: Service Date/Time: Saturday, September 23, 2017 21:30 - CONCLUSION: 1. Cholelithiasis. 2. No biliary ductal dilatation. 3. Moderate amount of ascites. Nitin Scanlon MD Hepatobiliary Scan Nuclear Medicine 09/22/17 0000 Signed Impressions: Service Date/Time: Friday, September 22, 2017 13:52 - CONCLUSION: Nonvisualization of the gallbladder which may reflect acute cholecystitis. Delayed imaging is to be performed. Reid Whitmore MD ADDENDUM: Delayed imaging is obtained but no definite activity is identified within the gallbladder. Therefore, cystic duct obstruction is not excluded. Tien Donato MD Abdomen/Pelvis CT 09/22/17 0000 Signed Impressions: Service Date/Time: Friday, September 22, 2017 03:08 - CONCLUSION: 1. Small amount of ascites. Etiology is unclear. The liver is unremarkable although it is incompletely evaluated due to lack of contrast. 2. Nonspecific central mesenteric adenopathy measuring up to 1.1 cm. 3. Otherwise, no acute abnormality is demonstrated on this nonenhanced examination. Kenny Dee MD Chest X-Ray 09/21/17 1399 Signed Impressions: Service Date/Time: Thursday, September 21, 2017 17:29 - CONCLUSION: Mild left base parenchymal opacity Tien Narvaez MD Objective Remarks GENERAL: Alert, oriented 3, NAD. SKIN: Warm and dry. HEAD: Normocephalic. EYES: No scleral icterus. No injection or drainage. NECK: Supple, trachea midline. No JVD or lymphadenopathy. CARDIOVASCULAR: Regular rate and rhythm without murmurs, gallops, or rubs. RESPIRATORY: Breath sounds equal bilaterally. No accessory muscle use. GASTROINTESTINAL: Abdomen soft, non-tender, nondistended. MUSCULOSKELETAL: No cyanosis, or edema. BACK: Nontender without obvious deformity. No CVA tenderness. Procedures Cardiac cath 09/25/2017 1. New onset cardiac symptoms of resting chest pain described as tightness, unable angina, [place] [employer] class IV angina, preoperative noncardiac surgery, coronary artery disease. Culprit 75% mid right coronary artery. 2. Successful percutaneous coronary intervention of the mid right coronary artery with a bare-metal stent from 75% to 0% with MARILYN 3 flow. 3. Cardiomyopathy, ejection fraction 45% with a cardiac index of 2.2 L/m2/min. A/P Assessment and Plan Atrial fibrillation with rapid ventricular response Unstable angina with stenting here. Patient reports he is not on anticoagulation or medications for his atrial fibrillation secondary to noncompliance Diltiazem Status post cardiac catheterization 09/24 with stenting of RCA. Appreciate cardiology assistance. Jaundice/transaminitis Suspected acute cholecystitis. Probable Alcoholic liver disease CT of the abdomen/pelvis pending Monitor CMP Liver ultrasound with suspected acute cholecystitis. HIDA scan confirms. Gastroenterology consulted. on Zosyn as per GI. General surgery consulted. I have also ordered cardiology for clearance prior to possible surgical intervention. Continue on Zosyn for cholecystitis. Gastroenterology may opt for ERCP. Appreciate general surgery assistance Anxiety Holding home Klonopin/Cymbalta as it is unclear as to when patient last took his home medications Alcohol abuse Acute alcohol withdrawal Suspected chronic Wernicke-Korsakoff Thiamine/folate/multivitamin CIWA protocol Monitor for signs of withdrawal Schedule Librium. Thiamine. Continue CIWA protocol. GI following. Appreciate assistance. Improving. Continue scheduled Librium and CIWA protocol. Derian Galicia DO Sep 26, 2017 17:11
[2017-09-26 17:52] LABS: CERULOPLASMIN 24 mg/dL (18-36)
[2017-09-27] VITALS: BP 108/75; PULSE 62; PULSE 70; PULSE 72; RESP 18; TEMP 98.2; O2SAT 98
[2017-09-27] MEDS: PIPERACIL-TAZO 3.375 GM PREMIX 50 ML IV SCH ×2 (02:06→08:53)
[2017-09-27] MEDS: LORazepam 1 MG TAB PO PRN (02:52)
[2017-09-27 04:00] VITALS: BP 124/78; PULSE 72; PULSE 74; RESP 18; TEMP 98.3; O2SAT 98
[2017-09-27 08:00] VITALS: BP 117/65; PULSE 70; RESP 20; TEMP 98.3; O2SAT 98
[2017-09-27] MEDS: SODIUM CHLORIDE 0.9% FLUSH 10 ML FLUSH IV FLUSH SCH (08:50)
[2017-09-27] MEDS: ASPIRIN 81 MG CHEW TAB PO SCH (08:51)
[2017-09-27] MEDS: DILTIAZEM-CD 180 MG CAP ER PO SCH (08:51)
[2017-09-27] MEDS: RAMIPRIL 2.5 MG CAP PO SCH (08:51)
[2017-09-27] MEDS: CARVEDILOL 3.125 MG TAB PO SCH (08:51)
[2017-09-27] MEDS: DULoxetine HCl DR 60 MG CAP PO SCH (08:52)
[2017-09-27] MEDS: FOLIC ACID 1 MG TAB PO SCH (08:52)
[2017-09-27] MEDS: clonazePAM 1 MG TAB PO SCH (08:52)
[2017-09-27] MEDS: THIAMINE HCL 100 MG TAB PO SCH (08:53)
[2017-09-27] MEDS: CLOPIDOGREL 75 MG TAB PO SCH (08:53)
[2017-09-27] MEDS: MULTIVITAMIN TAB PO SCH (08:53)
[2017-09-27 12:00] VITALS: BP 97/63; PULSE 75; RESP 20; TEMP 98.1; O2SAT 98
--- NOTE | 2017-09-27 12:51 | PD.CARD.PN ---
Subjective Subjective Remarks assymptomatic Objective Medications Current Medications Medications (Trade) Dose Ordered Sig/Marsha Route Start Time Stop Time Status Last Admin (Romazicon Inj) 0.2 mg Q1M PRN IV PUSH 09/21/17 20:45 (Ativan) 1 mg Q4H PRN PO 09/21/17 20:45 09/27/17 02:52 (Ativan Inj) 1 mg Q4H PRN IV PUSH 09/21/17 20:45 (Ativan) 2 mg Q2H PRN PO 09/21/17 20:45 (Ativan Inj) 2 mg Q2H PRN IV PUSH 09/21/17 20:45 09/25/17 00:41 (Ativan Inj) 2 mg Q1H PRN IV PUSH 09/21/17 20:45 (Ativan Inj) 2 mg Q15M PRN IV PUSH 09/21/17 20:45 09/24/17 19:08 (Tylenol) 650 mg Q4H PRN PO 09/21/17 21:00 (Zofran Inj) 4 mg Q6H PRN IVP 09/21/17 21:00 (Heparin Inj) 5,000 units Q8H SQ 09/21/17 22:00 Future Hold 09/24/17 05:37 (Narcan Inj) 0.4 mg UNSCH PRN IV PUSH 09/21/17 21:00 (Folate) 1 mg DAILY PO 09/22/17 09:00 09/27/17 08:52 (Theragran) 1 tab DAILY PO 09/22/17 09:00 09/27/17 08:53 (KlonoPIN) 1 mg TID PO 09/22/17 18:00 09/27/17 08:52 (Cymbalta Dr) 60 mg DAILY PO 09/23/17 09:00 09/27/17 08:52 (Cardizem Cd) 180 mg DAILY PO 09/23/17 09:00 09/27/17 08:51 (Vitamin B1) 100 mg DAILY PO 09/24/17 09:00 09/27/17 08:53 Piperacillin Sod/ Tazobactam Sod 50 ml @ 100 mls/hr Q8H IV 09/23/17 18:00 09/27/17 08:53 (NS Flush) 2 ml UNSCH PRN IV FLUSH 09/24/17 16:30 (NS Flush) 2 ml BID IV FLUSH 09/24/17 21:00 09/27/17 08:50 (Aspirin Chew) 162 mg DAILY PO 09/25/17 09:00 09/27/17 08:51 (Plavix) 75 mg DAILY PO 09/25/17 09:00 09/27/17 08:53 (Coreg) 3.125 mg BID PO 09/24/17 21:00 09/27/17 08:51 (Altace) 2.5 mg DAILY PO 09/25/17 09:00 09/27/17 08:51 Vital Signs / I&O Vital Signs Date Time Temp Pulse Resp B/P (MAP) Pulse Ox O2 Delivery O2 Flow Rate FiO2 09/27/17 08:00 98.3 70 20 117/65 (82) 98 09/27/17 04:00 72 09/27/17 04:00 98.3 74 18 124/78 (93) 98 09/27/17 00:00 98.2 70 18 108/75 (86) 98 09/27/17 00:00 62 09/26/17 20:00 72 09/26/17 20:00 97.5 83 19 129/74 (92) 98 09/26/17 16:03 97.4 83 20 110/77 (88) 98 09/26/17 16:00 84 09/26/17 15:30 96 21 I/O 09/26/17 09/26/17 09/26/17 09/27/17 09/27/17 09/27/17 07:00 15:00 23:00 07:00 15:00 23:00 Intake Total 50 ml 570 ml 50 ml Output Total 1200 ml 300 ml Balance 50 ml -630 ml -300 ml 50 ml Intake Oral 520 ml IV Total 50 ml 50 ml 50 ml Output Urine Total 1200 ml 300 ml # Voids 3 1 # Bowel Movements 1 Physical Exam GENERAL: SKIN: Warm and dry. HEAD: Normocephalic. EYES: No scleral icterus. No injection or drainage. NECK: Supple, trachea midline. No JVD or lymphadenopathy. CARDIOVASCULAR: Regular rate and rhythm without murmurs, gallops, or rubs. RESPIRATORY: Breath sounds equal bilaterally. No accessory muscle use. GASTROINTESTINAL: Abdomen soft, non-tender, nondistended. MUSCULOSKELETAL: No cyanosis, or edema. BACK: Nontender without obvious deformity. No CVA tenderness. Assessment and Plan Problem List: (1) Atrial fibrillation with rapid ventricular response ICD Codes: I48.91 - Unspecified atrial fibrillation Status: Acute (2) History of alcohol abuse ICD Codes: Z87.898 - Personal history of other specified conditions Status: Acute (3) History of tobacco use ICD Codes: Z87.891 - Personal history of nicotine dependence Status: Acute (4) CAD (coronary artery disease) ICD Codes: I25.10 - Atherosclerotic heart disease of [place] coronary artery without angina pectoris (5) Unstable angina ICD Codes: I20.0 - Unstable angina Assessment and Plan 1.) CAD - pod #2 bms mid rca, assymptomatic, continue aspirin, plavix, coreg, altace, statin held due to alchoholism and elevated lfts; i explained to him and his son that he may have life threatening stent thrombosis if he is noncompliant with dapt, they understand and agree for him to be compliant, d/c tobacco, f/u with me in my office 09/28/17, d/w patient and his son again today 2.) Afib - rate controlled, assymptomatic, rec coumadin or noac due to chadsvasc score = 3, patient refuses, is a fall srikanth and risk of non compliance due to alchoholism, d/w him and his son in detail, explained that risk of cva will be higher withour coumadin or noac, they Jose Do MD Sep 27, 2017 12:51
[2017-09-27 17:50] LABS: ENDOMYSIAL AB SCREEN ND (NEGATIVE); ENDOMYSIAL AB TITER ND (<1:5)
[2017-09-27 23:51] LABS: MITOCHONDRIAL ABS LESS THAN 20.0 U (<=20.0)
== END 2017-09-27 13:34 | disposition home health service (06) | DRG 249 ==
LOC: NEPC 15:30 → NEDA 20:58 → HCIS 22:07 → N04A 09-25 20:16
PROVIDERS: ADMIT Hospitalist; ATTEND Hospitalist
PROC: 4A023N8 Measurement of Cardiac Sampling and Pressure, Bilateral, Percutaneous Approach (ICD-10-PCS; 2017-09-24)
PROC: B2151ZZ Fluoroscopy of Left Heart using Low Osmolar Contrast (ICD-10-PCS; 2017-09-24)
PROC: B2111ZZ Fluoroscopy of Multiple Coronary Arteries using Low Osmolar Contrast (ICD-10-PCS; 2017-09-24)
PROC: 02703DZ Dilation of Coronary Artery, One Artery with Intraluminal Device, Percutaneous Approach (ICD-10-PCS; principal; 2017-09-24 14:45)
DX: I48.91 Unspecified atrial fibrillation (principal); I42.9 Cardiomyopathy, unspecified; K80.00 Calculus of gallbladder with acute cholecystitis without obstruction; K70.11 Alcoholic hepatitis with ascites; E87.1 Hypo-osmolality and hyponatremia; F10.26 Alcohol dependence with alcohol-induced persisting amnestic disorder; F10.230 Alcohol dependence with withdrawal, uncomplicated; I25.110 Atherosclerotic heart disease of native coronary artery with unstable angina pectoris; E53.8 Deficiency of other specified B group vitamins; F17.210 Nicotine dependence, cigarettes, uncomplicated; F43.10 Post-traumatic stress disorder, unspecified; Z96.643 Presence of artificial hip joint, bilateral; Z96.653 Presence of artificial knee joint, bilateral; F32.9 Major depressive disorder, single episode, unspecified; I08.0 Rheumatic disorders of both mitral and aortic valves; W01.0XXA Fall on same level from slipping, tripping and stumbling without subsequent striking against object, initial encounter; D53.9 Nutritional anemia, unspecified; Z91.14 Patient's other noncompliance with medication regimen
CPT/HCPCS: 70450; 71045; 74176; 74181; 76377; 76705; 76937; 78226; 80048; 80053; 80061; 80074; 80076; 81001; 82103; 82140; 82390; 82550; 82607; 82728; 82746; 82784; 82810; 83516; 83520; 83540; 83550; 83690; 83735; 84443; 84484; 85002; 85025; 85610; 85730; 86038; 86255; 92928; 93005; 93306; 93460; 96365; 96366; 96375; 99152; 99153; A9537; C1769; C1876; C1893; J0171; J0461; J1644; J2060; J2250; J2543; J3010; J3246; Q9967

== ENCOUNTER 2017-10-02 13:28 | Inpatient (IN) | payer OTHER ==
[2017-10-02] VITALS (9 sets, daily range): BP systolic 87–141; BP diastolic 59–86; PULSE 89–130; RESP 15–19; TEMP 99; O2SAT 98–100
[~2017-10-02 13:28] MED LIST: ASPI81 PO; AUGM875T3 PO; CARD180C5 PO; CARV3.125 PO; CLON1 PO; CYMB60CA PO; FOLI1TAB6 PO; PLAV75TA29 PO; RAMI2.5C PO; THIA100 PO
[2017-10-02] MEDS ORDERED: DILTIAZEM HCL 25 MG/5 ML VIAL IV ONE ×2 (15:15→16:45)
[2017-10-02] MEDS ORDERED: SODIUM CHLORIDE 0.9% FLUSH 10 ML FLUSH IVF PRN (15:15)
[2017-10-02 15:49] LABS: AUTOMATED NEUTROPHIL # 7.4 TH/MM3 (1.8-7.7); BASOPHIL # 0.1 TH/MM3 (0-0.2); BASOPHIL % 0.9 % (0.0-2.0); EOSINOPHIL % 0.4 % (0.0-4.0); HEMATOCRIT 35.3 % (39.0-51.0); HEMOGLOBIN 12.2 GM/DL (13.0-17.0); LYMPH % 14.6 % (9.0-44.0); LYMPHOCYTE # 1.4 TH/MM3 (1.0-4.8); MEAN CELL VOLUME 107.3 FL (80.0-100.0); MEAN CORPUSCULAR HEMOGLOBIN 36.9 PG (27.0-34.0); MEAN CORPUSCULAR HGB CONC 34.4 % (32.0-36.0); MEAN PLATELET VOLUME 8.6 FL (7.0-11.0); MONO % 8.9 % (0.0-8.0); MONOCYTE # 0.9 TH/MM3 (0-0.9); NEUT % 75.2 % (16.0-70.0); PLATELET COUNT 258 TH/MM3 (150-450); RED BLOOD COUNT 3.29 MIL/MM3 (4.50-5.90); RED CELL DISTRIBUTION WIDTH 16.2 % (11.6-17.2); WHITE BLOOD COUNT 9.8 TH/MM3 (4.0-11.0)
[2017-10-02 15:54] LABS: INTERNATIONAL NORMALIZED RATIO 1.3 RATIO; PROTHROMBIN TIME - PATIENT 12.7 SEC (9.8-11.6)
--- NOTE | 2017-10-02 15:56 | PD ---
HPI Chief Complaint: Syncope/Near-Syncope Time Seen by Provider: 15:01 Travel History International Travel<30 days: No Contact w/Intl Traveler<30days: No Traveled to known affect area: No History of Present Illness HPI Patient is a 51-year-old male sent by the [facility] for evaluation of a near syncopal episode. Per EMS patient had an elevated heart rate, low blood pressure initially staff at the [facility] was unable to palpate a radial pulse. Patient denies any chest pain, abdominal pain, shortness of breath, dizziness. He reports feeling tired, he admits to drinking at least a 12 pack of beer daily. Patient has a history of A. fib with RVR, he is not on any anticoagulation. Per EMS patient is in A. fib with RVR with a rate of 130s-140's. Symptom onset was sudden, symptom severity is moderate to severe. There were no alleviating factors. PFSH Past Medical History Atrial Fibrillation: Yes Anxiety: Yes Depression: Yes Cardiac Catheterization: Yes High Cholesterol: Yes Hypertension: Yes Musculoskeletal: Yes Neurologic: No Past Surgical History Abdominal Surgery: Yes (HERNIA) Cardiac Surgery: No Thoracic Surgery: Yes Social History Alcohol Use: Yes (12 bottle a day ) Tobacco Use: Yes (a pack a day ) Substance Use: No Allergies-Medications (Allergen,Severity, Reaction): Coded Allergies: fentanyl (Verified Allergy, Mild, 10/02/17) Sulfa (Sulfonamide Antibiotics) (Verified Allergy, Unknown, 10/02/17) Reported Meds & Prescriptions Reported Meds & Active Scripts Active Augmentin (Amoxicillin-Clavulanate) 875-125 Mg Tab 1 Tab PO BID Klonopin (Clonazepam) 1 Mg Tab 1 Mg PO TID PRN Cymbalta DR (Duloxetine HCl) 60 Mg Capdr 60 Mg PO DAILY Gnp Vitamin B-1 (Thiamine HCl) 100 Mg Tab 100 Mg PO DAILY Folic Acid 1 Mg Tablet 1 Mg PO DAILY Tgt Aspirin (Aspirin) 81 Mg Chw 162 Mg PO DAILY Ramipril 2.5 Mg Cap 2.5 Mg PO DAILY Coreg (Carvedilol) 3.125 Mg Tab 3.125 Mg PO BID Plavix (Clopidogrel Bisulfate) 75 Mg Tab 75 Mg PO DAILY Cardizem CD 24 HR (Diltiazem CD 24 HR) 180 Mg Caper 180 Mg PO DAILY 30 Days Review of Systems Except as stated in HPI: all other systems reviewed are Neg Cardiovascular: Positive: Irregular Rhythm Neurologic: Positive: Syncope Physical Exam Narrative GENERAL: Well-developed, well-nourished, alert male. Presenting in no acute distress. SKIN: Warm and dry. Jaundiced HEAD: Atraumatic. Normocephalic. EYES: Pupils equal and round. Positive scleral icterus. No injection or drainage. ENT: No nasal bleeding or discharge. Mucous membranes pink and moist. NECK: Trachea midline. No JVD. CARDIOVASCULAR: Irregularly irregular RESPIRATORY: No accessory muscle use. Clear to auscultation. Breath sounds equal bilaterally. GASTROINTESTINAL: Abdomen firm, significantly distended. Hepatic and splenic margins not palpable. Positive bowel sounds MUSCULOSKELETAL: Extremities without clubbing, cyanosis, or edema. No obvious deformities. NEUROLOGICAL: Awake and alert. No obvious cranial nerve deficits. Motor grossly within normal limits. Five out of 5 muscle strength in the arms and legs. Normal speech. PSYCHIATRIC: Appropriate mood and affect; insight and judgment normal. Data Data Last Documented VS Vital Signs Date Time Temp Pulse Resp B/P (MAP) Pulse Ox O2 Delivery O2 Flow Rate FiO2 10/02/17 17:05 89 119/84 (96) 10/02/17 15:19 100 Room Air 10/02/17 15:03 99.0 15 Orders Orders Complete Blood Count With Diff (10/02/17 15:08) Comprehensive Metabolic Panel (10/02/17 15:08) Act Partial Throm Time (Ptt) (10/02/17 15:08) Prothrombin Time / Inr (Pt) (10/02/17 15:08) Magnesium (Mg) (10/02/17 15:08) Urinalysis - C+S If Indicated (10/02/17 15:08) Iv Access Insert/Monitor (10/02/17 15:08) Electrocardiogram (10/02/17 15:08) Ecg Monitoring (10/02/17 15:08) Oximetry (10/02/17 15:08) Oxygen Administration (10/02/17 15:08) Chest, Single Ap (10/02/17 15:08) Sodium Chloride 0.9% Flush (Ns Flush) (10/02/17 15:15) Lipase (10/02/17 15:08) Diltiazem Inj (Cardizem Inj) (10/02/17 15:15) Us Abdomen Gallbladder (10/02/17 ) Sodium Chlor 0.9% 1000 Ml Inj (Ns 1000 M (10/02/17 16:15) B-Type Natriuretic Peptide (10/02/17 16:04) Diltiazem Inj (Cardizem Inj) (10/02/17 16:45) Cath For Specimen (10/02/17 17:52) Labs Laboratory Tests Test 10/02/17 15:20 10/02/17 17:15 White Blood Count 9.8 TH/MM3 Red Blood Count 3.29 MIL/MM3 Hemoglobin 12.2 GM/DL Hematocrit 35.3 % Mean Corpuscular Volume 107.3 FL Mean Corpuscular Hemoglobin 36.9 PG Mean Corpuscular Hemoglobin Concent 34.4 % Red Cell Distribution Width 16.2 % Platelet Count 258 TH/MM3 Mean Platelet Volume 8.6 FL Neutrophils (%) (Auto) 75.2 % Lymphocytes (%) (Auto) 14.6 % Monocytes (%) (Auto) 8.9 % Eosinophils (%) (Auto) 0.4 % Basophils (%) (Auto) 0.9 % Neutrophils # (Auto) 7.4 TH/MM3 Lymphocytes # (Auto) 1.4 TH/MM3 Monocytes # (Auto) 0.9 TH/MM3 Eosinophils # (Auto) 0.0 TH/MM3 Basophils # (Auto) 0.1 TH/MM3 CBC Comment DIFF FINAL Differential Comment Prothrombin Time 12.7 SEC Prothromb Time International Ratio 1.3 RATIO Activated Partial Thromboplast Time 27.8 SEC Blood Urea Nitrogen 14 MG/DL Creatinine 0.94 MG/DL Random Glucose 99 MG/DL Total Protein 6.3 GM/DL Albumin 1.9 GM/DL Calcium Level 8.6 MG/DL Magnesium Level 1.9 MG/DL Alkaline Phosphatase 154 U/L Aspartate Amino Transf (AST/SGOT) 196 U/L Alanine Aminotransferase (ALT/SGPT) 79 U/L Total Bilirubin 5.9 MG/DL Sodium Level 133 MEQ/L Potassium Level 4.6 MEQ/L Chloride Level 100 MEQ/L Carbon Dioxide Level 26.9 MEQ/L Anion Gap 6 MEQ/L Estimat Glomerular Filtration Rate 84 ML/MIN B-Type Natriuretic Peptide 339 PG/ML Lipase 136 U/L Urine Color DARK-BROWN Urine Turbidity CLEAR Urine pH 6.0 Urine Specific [place] 1.028 Urine Protein TRACE mg/dL Urine Glucose (UA) NEG mg/dL Urine Ketones NEG mg/dL Urine Occult Blood NEG Urine Nitrite NEG Urine Bilirubin MOD Urine Urobilinogen GREATER THAN 12.0 MG/DL Urine Leukocyte Esterase NEG Urine WBC 1 /hpf Urine Squamous Epithelial Cells 1 /hpf Urine Hyaline Casts 3 /lpf Urine Mucus FEW /lpf Microscopic Urinalysis Comment CULT NOT INDICATED MDM Medical Decision Making Medical Screen Exam Complete: Yes Emergency Medical Condition: Yes Medical Record Reviewed: Yes Interpretation(s) Laboratory Tests Test 10/02/17 15:20 10/02/17 17:15 White Blood Count 9.8 TH/MM3 Red Blood Count 3.29 MIL/MM3 Hemoglobin 12.2 GM/DL Hematocrit 35.3 % Mean Corpuscular Volume 107.3 FL Mean Corpuscular Hemoglobin 36.9 PG Mean Corpuscular Hemoglobin Concent 34.4 % Red Cell Distribution Width 16.2 % Platelet Count 258 TH/MM3 Mean Platelet Volume 8.6 FL Neutrophils (%) (Auto) 75.2 % Lymphocytes (%) (Auto) 14.6 % Monocytes (%) (Auto) 8.9 % Eosinophils (%) (Auto) 0.4 % Basophils (%) (Auto) 0.9 % Neutrophils # (Auto) 7.4 TH/MM3 Lymphocytes # (Auto) 1.4 TH/MM3 Monocytes # (Auto) 0.9 TH/MM3 Eosinophils # (Auto) 0.0 TH/MM3 Basophils # (Auto) 0.1 TH/MM3 CBC Comment DIFF FINAL Differential Comment Prothrombin Time 12.7 SEC Prothromb Time International Ratio 1.3 RATIO Activated Partial Thromboplast Time 27.8 SEC Blood Urea Nitrogen 14 MG/DL Creatinine 0.94 MG/DL Random Glucose 99 MG/DL Total Protein 6.3 GM/DL Albumin 1.9 GM/DL Calcium Level 8.6 MG/DL Magnesium Level 1.9 MG/DL Alkaline Phosphatase 154 U/L Aspartate Amino Transf (AST/SGOT) 196 U/L Alanine Aminotransferase (ALT/SGPT) 79 U/L Total Bilirubin 5.9 MG/DL Sodium Level 133 MEQ/L Potassium Level 4.6 MEQ/L Chloride Level 100 MEQ/L Carbon Dioxide Level 26.9 MEQ/L Anion Gap 6 MEQ/L Estimat Glomerular Filtration Rate 84 ML/MIN B-Type Natriuretic Peptide 339 PG/ML Lipase 136 U/L Urine Color DARK-BROWN Urine Turbidity CLEAR Urine pH 6.0 Urine Specific [place] 1.028 Urine Protein TRACE mg/dL Urine Glucose (UA) NEG mg/dL Urine Ketones NEG mg/dL Urine Occult Blood NEG Urine Nitrite NEG Urine Bilirubin MOD Urine Urobilinogen GREATER THAN 12.0 MG/DL Urine Leukocyte Esterase NEG Urine WBC 1 /hpf Urine Squamous Epithelial Cells 1 /hpf Urine Hyaline Casts 3 /lpf Urine Mucus FEW /lpf Microscopic Urinalysis Comment CULT NOT INDICATED Vital Signs Date Time Temp Pulse Resp B/P (MAP) Pulse Ox O2 Delivery O2 Flow Rate FiO2 10/02/17 15:22 126 116/70 (85) 10/02/17 15:19 100 Room Air 10/02/17 15:19 100 Room Air 10/02/17 15:07 135 10/02/17 15:03 99.0 122 15 105/82 (90) 100 Differential Diagnosis Cardiac arrhythmia versus congestive heart failure versus metabolic abnormality versus cholecystitis versus coagulopathy versus other Narrative Course Patient is a 51-year-old male presenting from the [facility] in [facility] with RVR with heart rate in the 130s-140s currently. Patient appears jaundiced. He admits to drinking daily and excessively. Medical records reviewed. Patient was discharged a few days ago. He was admitted with [facility] with RVR, patient refused anticoagulation despite cardiology recommendations. Patient also had cardiac stent placed during that admission. Additionally patient had a normal HIDA scan apparently patient was not interested in GI procedures at that time. Labs and imaging ordered and pending. Patient was given initial dose of Cardizem, heart rate remained elevated, additional IV dose of Cardizem was administered in patient's heart rate trended to the 90s. CBC with no acute findings BNP 339 Chemistry with elevated AST/ALT 196/79 UA inconsistent with UTI Chest x-ray shows mild compensated cardiomegaly Ultrasound gallbladder stones and gallstones and a relatively benign appearing gallbladder, moderate ascites noted. Patient will be admitted, Dr. Lima admission. Admit orders placed. Diagnosis Primary Impression: Atrial fibrillation with RVR Additional Impressions: Transaminitis ETOH abuse Admitting Information Admitting Physician Requests: Admit Condition: Stable RefugioZainab Oct 02, 2017 15:56
--- NOTE | 2017-10-02 15:56 | RADRPT ---
EXAM DATE/TIME: 10/02/2017 15:40 [facility] COMPARISON: CHEST SINGLE AP, September 21, 2017, 17:29. INDICATIONS : Short of breath. MEDICAL HISTORY : Hypertension. A-fib. SURGICAL HISTORY : None. ENCOUNTER: Initial ACUITY: 1 day PAIN SCORE: 0/10 LOCATION: Bilateral chest FINDINGS: A single view of the chest demonstrates the lungs to be symmetrically aerated without evidence of mas s, infiltrate or effusion. Mild compensated cardiomegaly. Osseous structures are intact. CONCLUSION: Mild compensated cardiomegaly Sriram Solorzano MD FACR on October 02, 2017 at 15:54 Board Certified Radiologist. This report was verified electronically.
[2017-10-02 16:10] LABS: ALBUMIN 1.9 GM/DL (3.4-5.0); ALT (GPT) 79 U/L (12-78); AST (GOT) 196 U/L (15-37); BICARBONATE 26.9 MEQ/L (21.0-32.0); BLOOD UREA NITROGEN 14 MG/DL (7-18); CALCIUM 8.6 MG/DL (8.5-10.1); CHLORIDE 100 MEQ/L (98-107); CREATININE 0.94 MG/DL (0.60-1.30); GLOMERULAR FILTRATION RATE 84 ML/MIN (>89); GLUCOSE,RANDOM 99 MG/DL (74-106); MAGNESIUM 1.9 MG/DL (1.5-2.5); SODIUM (NA) 133 MEQ/L (136-145)
[2017-10-02 16:12] LABS: ALKALINE PHOSPHATASE 154 U/L (45-117); TOTAL BILIRUBIN ADULT 5.9 MG/DL (0.2-1.0); TOTAL PROTEIN 6.3 GM/DL (6.4-8.2)
[2017-10-02] MEDS ORDERED: SODIUM CHLOR 0.9% 1000 ML INJ 1,000 ML IV ONE (16:15)
--- NOTE | 2017-10-02 16:53 | RADRPT ---
EXAM DATE/TIME: 10/02/2017 16:09 [facility] COMPARISON: No previous studies available for comparison. INDICATIONS : Right upper quadrant pain. MEDICAL HISTORY : Hypertension. Hypercholesterolemia. Afib. ETOH abuse. Liver disease. Coronary artery disease. Depre ssion. Anxiety. PTSD. SURGICAL HISTORY : Coronary artery stent. Hernia repair. Bilateral knee replacement. Bilateral hip replacement. Back surgery. ENCOUNTER: Subsequent ACUITY: 2 weeks PAIN SCORE: 2/10 LOCATION: Right upper quadrant MEASUREMENTS: LIVER: 19.4 cm length COMMON DUCT: 4 mm RIGHT KIDNEY: 11.0 x 5.4 x 5.7 cm FINDINGS: LIVER: Nodular liver without ductal dilatation. COMMON DUCT: No intraluminal mass or stone visualized. GALLBLADDER: Multiple small stones. PANCREAS: Poorly seen RIGHT KIDNEY: No evidence of hydronephrosis, stone, or mass. Moderate ascites. CONCLUSION: Gallstones in the relatively benign appearing gallbladder Moderate ascites Sriram Solorzano MD FACR on October 02, 2017 at 16:50 Board Certified Radiologist. This report was verified electronically.
[2017-10-02 18:01] LABS: BILIRUBIN, URINE MOD (NEG); BLOOD, URINE NEG (NEG); GLUCOSE,URINE NEG (NEG); HYALINE CAST, URINE 3 /lpf (RARE); KETONE, URINE NEG (NEG); MUCUS URINE FEW /lpf (OCC); NITRITE,URINE NEG (NEG); SQUAMOUS EPITHELIAL CELL URINE 1 /hpf (0-5); URINE LEUKOCYTE ESTERASE NEG (NEG)
[2017-10-02 18:03] LABS: URINE COLOR DARK-BROWN (YELLW/STRAW)
[2017-10-02] MEDS ORDERED: DILTIAZEM HCL 30 MG TAB PO PRN (18:30)
--- NOTE | 2017-10-02 18:34 | HHI.HP ---
HPI Service [facility] Primary Care Physician No Primary Care Physician Admission Diagnosis AFIB W/ RVR, TRANSAMINITIS Diagnoses: Chief Complaint: sob Travel History International Travel<30 Days: No Contact w/Intl Traveler <30 Da: No Traveled to Known Affected Are: No History of Present Illness Patient is a 51-year-old male sent by the [facility] for evaluation of a near syncopal episode. Per EMS patient had an elevated heart rate, low blood pressure initially staff at the [facility] was unable to palpate a radial pulse. Patient denies any chest pain, abdominal pain, shortness of breath, dizziness. He reports feeling tired, he admits to drinking at least a 12 pack of beer daily. Patient has a history of A. fib with RVR, he is not on any anticoagulation. Per EMS patient is in A. fib with RVR with a rate of 130s-140's. Symptom onset was sudden, symptom severity is moderate to severe. There were no alleviating factors. Patient received 2x bolus of cardizem HR better and briffely HR imprpved. HR was noted in 130-140s again and was placed on cardizem drip. Patient has No sob, doesn't feel palpitations, No nausea. Review of Systems ROS Limitations: Clinical Condition, Poor Historian Except as stated in HPI: all other systems reviewed are Neg Past Family Social History Past Medical History Atrial fibrillation (patient is a poor historian however he is not currently anticoagulated secondary to noncompliance?) Alcohol abuse Anxiety CAD with stent placement Past Surgical History Bilateral hip replacement Right knee replacement cardiac cath with stent placement Reported Medications Reported Meds & Active Scripts Active Augmentin (Amoxicillin-Clavulanate) 875-125 Mg Tab 1 Tab PO BID Klonopin (Clonazepam) 1 Mg Tab 1 Mg PO TID PRN Cymbalta DR (Duloxetine HCl) 60 Mg Capdr 60 Mg PO DAILY Gnp Vitamin B-1 (Thiamine HCl) 100 Mg Tab 100 Mg PO DAILY Folic Acid 1 Mg Tablet 1 Mg PO DAILY Tgt Aspirin (Aspirin) 81 Mg Chw 162 Mg PO DAILY Ramipril 2.5 Mg Cap 2.5 Mg PO DAILY Coreg (Carvedilol) 3.125 Mg Tab 3.125 Mg PO BID Plavix (Clopidogrel Bisulfate) 75 Mg Tab 75 Mg PO DAILY Cardizem CD 24 HR (Diltiazem CD 24 HR) 180 Mg Caper 180 Mg PO DAILY 30 Days Allergies: Coded Allergies: fentanyl (Verified Allergy, Mild, 10/02/17) Sulfa (Sulfonamide Antibiotics) (Verified Allergy, Unknown, 10/02/17) Family History Both parents with diabetes and coronary artery disease Social History Smokes approximately one pack per day. Drinks approximately 3-4 beers daily. Denies illicit drugs. Physical Exam Vital Signs Vital Signs Date Time Temp Pulse Resp B/P (MAP) Pulse Ox O2 Delivery O2 Flow Rate FiO2 10/02/17 17:05 89 119/84 (96) 10/02/17 16:12 120 96/70 (79) 10/02/17 15:22 126 116/70 (85) 10/02/17 15:19 100 Room Air 10/02/17 15:19 100 Room Air 10/02/17 15:07 135 10/02/17 15:03 99.0 122 15 105/82 (90) 100 Physical Exam GENERAL: This is a well-nourished, well-developed patient, in no apparent distress. SKIN: No rashes, ecchymoses or lesions. Cool and dry. HEAD: Atraumatic. Normocephalic. No temporal or scalp tenderness. EYES: Pupils equal round and reactive. Extraocular motions intact. No scleral icterus. No injection or drainage. ENT: Nose without bleeding, purulent drainage or septal hematoma. Throat without erythema, tonsillar hypertrophy or exudate. Uvula midline. Airway patent. NECK: Trachea midline. No JVD or lymphadenopathy. Supple, nontender, no meningeal signs. CARDIOVASCULAR:Irregularly irregular rate and rhythm without murmurs, gallops, or rubs. RESPIRATORY: Clear to auscultation. Breath sounds equal bilaterally. No wheezes , rales, or rhonchi. GASTROINTESTINAL: Abdomen soft, non-tender, nondistended. No hepato-splenomegaly , or palpable masses. No guarding. MUSCULOSKELETAL: Extremities without clubbing, cyanosis, or edema. No joint tenderness, effusion, or edema noted. No calf tenderness. Negative Homans sign bilaterally. NEUROLOGICAL: Awake and alert. Cranial nerves II through XII intact. Motor and sensory grossly within normal limits. Five out of 5 muscle strength in all muscle groups. Normal speech. Laboratory Laboratory Tests Test 10/02/17 15:20 10/02/17 17:15 White Blood Count 9.8 Red Blood Count 3.29 Hemoglobin 12.2 Hematocrit 35.3 Mean Corpuscular Volume 107.3 Mean Corpuscular Hemoglobin 36.9 Mean Corpuscular Hemoglobin Concent 34.4 Red Cell Distribution Width 16.2 Platelet Count 258 Mean Platelet Volume 8.6 Neutrophils (%) (Auto) 75.2 Lymphocytes (%) (Auto) 14.6 Monocytes (%) (Auto) 8.9 Eosinophils (%) (Auto) 0.4 Basophils (%) (Auto) 0.9 Neutrophils # (Auto) 7.4 Lymphocytes # (Auto) 1.4 Monocytes # (Auto) 0.9 Eosinophils # (Auto) 0.0 Basophils # (Auto) 0.1 CBC Comment DIFF FINAL Differential Comment Prothrombin Time 12.7 Prothromb Time International Ratio 1.3 Activated Partial Thromboplast Time 27.8 Blood Urea Nitrogen 14 Creatinine 0.94 Random Glucose 99 Total Protein 6.3 Albumin 1.9 Calcium Level 8.6 Magnesium Level 1.9 Alkaline Phosphatase 154 Aspartate Amino Transf (AST/SGOT) 196 Alanine Aminotransferase (ALT/SGPT) 79 Total Bilirubin 5.9 Sodium Level 133 Potassium Level 4.6 Chloride Level 100 Carbon Dioxide Level 26.9 Anion Gap 6 Estimat Glomerular Filtration Rate 84 B-Type Natriuretic Peptide 339 Lipase 136 Urine Color DARK-BROWN Urine Turbidity CLEAR Urine pH 6.0 Urine Specific Baker 1.028 Urine Protein TRACE Urine Glucose (UA) NEG Urine Ketones NEG Urine Occult Blood NEG Urine Nitrite NEG Urine Bilirubin MOD Urine Urobilinogen GREATER THAN 12.0 Urine Leukocyte Esterase NEG Urine WBC 1 Urine Squamous Epithelial Cells 1 Urine Hyaline Casts 3 Urine Mucus FEW Microscopic Urinalysis Comment CULT NOT INDICATED Result Diagram: 10/02/17 1520 10/02/17 1520 Imaging Last Impressions Chest X-Ray 10/02/17 1508 Signed Impressions: Service Date/Time: Monday, October 02, 2017 15:40 - CONCLUSION: Mild compensated cardiomegaly Sriram Solorzano MD FACR Gall Bladder Ultrasound 10/02/17 0000 Signed Impressions: Service Date/Time: Roman, October 02, 2017 16:09 - CONCLUSION: Gallstones in the relatively benign appearing gallbladder Moderate ascites Sriram Solorzano MD FACR Caprini VTE Risk Assessment Caprini VTE Risk Assessment: Mod/High Risk (score >= 2) Caprini Risk Assessment Model Point Value = 1 Point Value = 2 Point Value = 3 Point Value = 5 Age 41-60 Minor surgery BMI > 25 kg/m2 Swollen legs Varicose veins or History of unexplained or recurrent spontaneous Oral contraceptives or hormone replacement Sepsis (< 1 month) Serious lung disease, including pneumonia (< 1 month) Abnormal pulmonary function Acute myocardial infarction Congestive heart failure (< 1 month) History of inflammatory bowel disease Medical patient at bed rest Age 61-74 Arthroscopic surgery Major open surgery (> 45 min) Laparoscopic surgery (> 45 min) Malignancy Confined to bed (> 72 hours) Immobilizing plaster cast Central venous access Age >= 75 History of VTE Family history of VTE Factor V Leiden Prothrombin [id number] Lupus anticoagulant Anticardiolipin antibodies Elevated serum homocysteine Heparin-induced thrombocytopenia Other congenital or acquired thrombophilia Stroke (< 1 month) Elective arthroplasty Hip, pelvis, or leg fracture Acute spinal cord injury (< 1 month) Prophylaxis Regimen Total Risk Factor Score Risk Level Prophylaxis Regimen 0-1 Low Early ambulation 2 Moderate Order ONE of the following: *Sequential Compression Device (SCD) *Heparin 5000 units SQ BID 3-4 Higher Order ONE of the following medications: *Heparin 5000 units SQ TID *Enoxaparin/Lovenox 40 mg SQ daily (WT < 150 kg, CrCl > 30 mL/min) *Enoxaparin/Lovenox 30 mg SQ daily (WT < 150 kg, CrCl > 10-29 mL/min) *Enoxaparin/Lovenox 30 mg SQ BID (WT < 150 kg, CrCl > 30 mL/min) AND/OR *Sequential Compression Device (SCD) 5 or more Highest Order ONE of the following medications: *Heparin 5000 units SQ TID (Preferred with Epidurals) *Enoxaparin/Lovenox 40 mg SQ daily (WT < 150 kg, CrCl > 30 mL/min) *Enoxaparin/Lovenox 30 mg SQ daily (WT < 150 kg, CrCl > 10-29 mL/min) *Enoxaparin/Lovenox 30 mg SQ BID (WT < 150 kg, CrCl > 30 mL/min) AND *Sequential Compression Device (SCD) Assessment and Plan Assessment and Plan 1. Atrial fibrillation with rapid ventricular response CAD with recent stent placed by Dr Ortiz. Continue home meds as appropriate. Patient reports he is not on anticoagulation or medications for his atrial fibrillation secondary to noncompliance Diltiazem x 2 bolused in the ED now HR ion 80s . Monitor on telemetry Start home meds Add cardizem 30 mg po qid as need if persistent HR > 110 hold if low BP . Started on cardizem drip as HR> 110 sustained. Transition to PO as tolerated 2. Transaminitis 2/2 EtOH and cholecystitis refused surgery, asymptomatic. Monitor CMP 3. Anxiety Holding home Klonopin/Cymbalta as it is unclear as to when patient last took his home medications 4. Alcohol abuse Thiamine/folate/multivitamin CIWA protocol Monitor for signs of withdrawal DVT ppx scd/teds/lovenox Discussed Condition With patient, nurse, ED PA Physician Certification 2 Midnight Certification Type: Admission for Inpatient Services Order for Inpatient Services The services are ordered in accordance with Medicare regulations or non- Medicare payer requirements, as applicable. In the case of services not specified as inpatient-only, they are appropriately provided as inpatient services in accordance with the 2-midnight benchmark. Estimated LOS (days): 3 days is the estimated time the patient will need to remain in the hospital, assuming treatment plan goals are met and no additional complications. Post-Hospital Plan: Home Saida Sarah MD Oct 02, 2017 18:34
[2017-10-02] MEDS ORDERED: DILTIAZEM INJ 125 MG in SODIUM CHLORIDE 0.9% INJ 100 ML IV PRN (18:45)
[2017-10-02] MEDS ORDERED: SODIUM CHLORIDE 0.9% FLUSH 10 ML FLUSH IV FLUSH PRN ×2 (18:45→19:00)
[2017-10-02] MEDS ORDERED: BISACODYL 10 MG SUPP RECTAL PRN (19:00)
[2017-10-02] MEDS ORDERED: ACETAMINOPHEN 325 MG TAB PO PRN (19:00)
[2017-10-02] MEDS ORDERED: ONDANSETRON HCL 4 MG/2 ML VIAL IVP PRN (19:00)
[2017-10-02] MEDS ORDERED: SENNOSIDES 8.6 MG TAB PO PRN (19:00)
[2017-10-02] MEDS ORDERED: LACTULOSE SYRUP 20 GM/30 ML CUP PO PRN (19:00)
[2017-10-02] MEDS ORDERED: MAGNESIUM HYDROXIDE SUSP 30 ML CUP PO PRN (19:00)
[2017-10-02] MEDS ORDERED: NALOXONE HCL 0.4 MG/ML AMP IV PUSH PRN (19:00)
[2017-10-02] MEDS ORDERED: TEMAZEPAM 15 MG CAP PO PRN (19:00)
[2017-10-02] MEDS: DOCUSATE SODIUM 50 MG/SENNA 8.6 MG TAB PO SCH (21:00)
[2017-10-02] MEDS: ENOXAPARIN SODIUM 40 MG/0.4 ML SYRINGE SQ SCH (21:40)
[2017-10-02] MEDS: CARVEDILOL 3.125 MG TAB PO SCH (21:44)
[2017-10-02] MEDS: SODIUM CHLORIDE 0.9% FLUSH 10 ML FLUSH IV FLUSH SCH (22:17)
[2017-10-02] MEDS: SODIUM CHLOR 0.9% 1000 ML INJ 1,000 ML IV SCH (23:42)
[2017-10-03] VITALS (27 sets, daily range): BP systolic 102–127; BP diastolic 53–86; PULSE 61–134; RESP 16–20; TEMP 97.2–98; O2SAT 97–99
[2017-10-03 05:42] LABS: AUTOMATED NEUTROPHIL # 5.8 TH/MM3 (1.8-7.7); BASOPHIL # 0.1 TH/MM3 (0-0.2); BASOPHIL % 1.2 % (0.0-2.0); EOSINOPHIL # 0.1 TH/MM3 (0-0.4); HEMATOCRIT 31.2 % (39.0-51.0); HEMOGLOBIN 10.9 GM/DL (13.0-17.0); LYMPH % 21.6 % (9.0-44.0); LYMPHOCYTE # 1.9 TH/MM3 (1.0-4.8); MEAN CELL VOLUME 106.3 FL (80.0-100.0); MEAN CORPUSCULAR HGB CONC 34.8 % (32.0-36.0); MEAN PLATELET VOLUME 8.8 FL (7.0-11.0); MONOCYTE # 0.9 TH/MM3 (0-0.9); NEUT % 66.2 % (16.0-70.0); PLATELET COUNT 229 TH/MM3 (150-450); RED BLOOD COUNT 2.94 MIL/MM3 (4.50-5.90); WHITE BLOOD COUNT 8.7 TH/MM3 (4.0-11.0)
[2017-10-03 06:04] LABS: BICARBONATE 26.5 MEQ/L (21.0-32.0); CREATININE 0.83 MG/DL (0.60-1.30)
--- NOTE | 2017-10-03 08:43 | HHI.PR ---
Subjective Remarks This is a pleasant 51 y/o Male sent by the [facility] for evaluation of a near syncopal episode. Per EMS patient had an elevated heart rate, low blood pressure initially staff at the [facility] was unable to palpate a radial pulse. Patient denies any chest pain, abdominal pain, shortness of breath, dizziness. He reports feeling tired, he admits to drinking at least a 12 pack of beer daily. Patient has a history of A. fib with RVR, he is not on any anticoagulation. Per EMS patient is in A. fib with RVR with a rate of 130s-140's. Symptom onset was sudden, symptom severity is moderate to severe. There were no alleviating factors. Patient received 2x bolus of cardizem HR better and briffely HR imprpved. HR was noted in 130-140s again and was placed on cardizem drip. Patient has No sob, doesn't feel palpitations, No nausea. Seen in his bedroom, improving condition, medically better, on Diltiazem by mouth. Objective Vital Signs Date Time Temp Pulse Resp B/P (MAP) Pulse Ox O2 Delivery O2 Flow Rate FiO2 10/03/17 06:00 110 10/03/17 05:00 98 10/03/17 04:00 124 10/03/17 03:47 110 20 103/62 (76) 98 10/03/17 03:00 109 10/03/17 02:00 106 10/03/17 01:00 122 10/03/17 00:20 109 10/03/17 00:20 97.5 108 20 127/80 (96) 99 10/03/17 00:14 10/02/17 22:35 102 16 87/59 (68) 98 Room Air 10/02/17 22:05 148 78/121 10/02/17 20:21 130 19 141/83 (102) 99 Room Air 10/02/17 20:08 98 10/02/17 18:31 113 113/86 (95) 10/02/17 17:05 89 119/84 (96) 10/02/17 16:12 120 96/70 (79) 10/02/17 15:22 126 116/70 (85) 10/02/17 15:19 100 Room Air 10/02/17 15:19 100 Room Air 10/02/17 15:07 135 10/02/17 15:03 99.0 122 15 105/82 (90) 100 I/O 10/02/17 10/02/17 10/02/17 10/03/17 10/03/17 10/03/17 07:00 15:00 23:00 07:00 15:00 23:00 Intake Total 240 ml Balance 240 ml Intake Oral 240 ml # Voids 1 # Bowel Movements 0 Result Diagram: 10/03/17 0517 10/03/17 0517 Imaging Last Impressions Chest X-Ray 10/02/17 1508 Signed Impressions: Service Date/Time: Monday, October 02, 2017 15:40 - CONCLUSION: Mild compensated cardiomegaly Sriram Solorzano MD FACR Gall Bladder Ultrasound 10/02/17 0000 Signed Impressions: Service Date/Time: Monday, October 02, 2017 16:09 - CONCLUSION: Gallstones in the relatively benign appearing gallbladder Moderate ascites Sriram Solorzano MD FACR Procedures None Other Results Laboratory Tests Test 10/02/17 15:20 10/02/17 17:15 10/03/17 05:17 Prothrombin Time 12.7 SEC Prothromb Time International Ratio 1.3 RATIO Activated Partial Thromboplast Time 27.8 SEC Blood Urea Nitrogen 14 MG/DL 17 MG/DL Creatinine 0.94 MG/DL 0.83 MG/DL Random Glucose 99 MG/DL 92 MG/DL Total Protein 6.3 GM/DL Albumin 1.9 GM/DL Calcium Level 8.6 MG/DL 8.0 MG/DL Magnesium Level 1.9 MG/DL Alkaline Phosphatase 154 U/L Aspartate Amino Transf (AST/SGOT) 196 U/L Alanine Aminotransferase (ALT/SGPT) 79 U/L Total Bilirubin 5.9 MG/DL Sodium Level 133 MEQ/L 137 MEQ/L Potassium Level 4.6 MEQ/L 3.9 MEQ/L Chloride Level 100 MEQ/L 104 MEQ/L Carbon Dioxide Level 26.9 MEQ/L 26.5 MEQ/L B-Type Natriuretic Peptide 339 PG/ML Lipase 136 U/L Urine Color DARK-BROWN Urine Turbidity CLEAR Urine pH 6.0 Urine Specific [place] 1.028 Urine Protein TRACE mg/dL Urine Glucose (UA) NEG mg/dL Urine Ketones NEG mg/dL Urine Occult Blood NEG Urine Nitrite NEG Urine Bilirubin MOD Urine Urobilinogen GREATER THAN 12.0 MG/DL Urine Leukocyte Esterase NEG Urine WBC 1 /hpf Urine Squamous Epithelial Cells 1 /hpf Urine Hyaline Casts 3 /lpf Urine Mucus FEW /lpf Microscopic Urinalysis Comment CULT NOT INDICATED White Blood Count 8.7 TH/MM3 Red Blood Count 2.94 MIL/MM3 Hemoglobin 10.9 GM/DL Hematocrit 31.2 % Mean Corpuscular Volume 106.3 FL Mean Corpuscular Hemoglobin 37.0 PG Mean Corpuscular Hemoglobin Concent 34.8 % Red Cell Distribution Width 16.0 % Platelet Count 229 TH/MM3 Mean Platelet Volume 8.8 FL Neutrophils (%) (Auto) 66.2 % Lymphocytes (%) (Auto) 21.6 % Monocytes (%) (Auto) 10.0 % Eosinophils (%) (Auto) 1.0 % Basophils (%) (Auto) 1.2 % Neutrophils # (Auto) 5.8 TH/MM3 Lymphocytes # (Auto) 1.9 TH/MM3 Monocytes # (Auto) 0.9 TH/MM3 Eosinophils # (Auto) 0.1 TH/MM3 Basophils # (Auto) 0.1 TH/MM3 CBC Comment DIFF FINAL Differential Comment Anion Gap 7 MEQ/L Estimat Glomerular Filtration Rate 97 ML/MIN Objective Remarks GENERAL: This is a well-nourished, well-developed patient, in no apparent distress. SKIN: No rashes, ecchymoses or lesions. Cool and dry. HEAD: Atraumatic. Normocephalic. No temporal or scalp tenderness. EYES: Pupils equal round and reactive. Extraocular motions intact. No scleral icterus. No injection or drainage. NECK: Trachea midline. No JVD or lymphadenopathy. Supple CARDIOVASCULAR:Irregularly irregular rate and rhythm without murmurs, gallops, or rubs. RESPIRATORY: Decreased breath sounds bilateral, no wheezing or crackles. GASTROINTESTINAL: Abdomen soft, non-tender, nondistended. No hepato-splenomegaly , or palpable masses. No guarding. MUSCULOSKELETAL: Extremities without clubbing, cyanosis, or edema. NEUROLOGICAL: Awake and alert. No focal deficits. Medications and IVs Current Medications Medications (Trade) Dose Ordered Sig/Marsha Route Start Time Stop Time Status Last Admin (NS Flush) 2 ml UNSCH PRN IVF 10/02/17 15:15 10/02/17 15:21 (Aspirin Chew) 162 mg DAILY PO 10/03/17 09:00 (Coreg) 3.125 mg BID PO 10/02/17 21:00 10/02/17 21:44 (KlonoPIN) 1 mg TID PRN PO 10/02/17 18:30 (Plavix) 75 mg DAILY PO 10/03/17 09:00 (Cardizem Cd) 180 mg DAILY PO 10/03/17 09:00 (Cymbalta Dr) 60 mg DAILY PO 10/03/17 09:00 (Folate) 1 mg DAILY PO 10/03/17 09:00 (Altace) 2.5 mg DAILY PO 10/03/17 09:00 (Vitamin B1) 100 mg DAILY PO 10/03/17 09:00 (Cardizem) 30 mg Q6HR PRN PO 10/02/17 18:30 Diltiazem HCl 125 mg/Sodium Chloride 125 ml @ 5 mls/hr TITRATE PRN IV 10/02/17 18:45 10/02/17 22:05 (NS Flush) 2 ml UNSCH PRN IV FLUSH 10/02/17 18:45 (NS Flush) 2 ml UNSCH PRN IV FLUSH 10/02/17 19:00 (NS Flush) 2 ml BID IV FLUSH 10/02/17 21:00 10/02/17 22:17 (Tylenol) 650 mg Q4H PRN PO 10/02/17 19:00 (Zofran Inj) 4 mg Q6H PRN IVP 10/02/17 19:00 (Restoril) 15 mg HS PRN PO 10/02/17 19:00 (Lovenox Inj) 40 mg Q24H SQ 10/02/17 19:00 10/02/17 21:40 (Narcan Inj) 0.4 mg UNSCH PRN IV PUSH 10/02/17 19:00 (Magui-Colace) 1 tab BID PO 10/02/17 21:00 (Milk Of Magnesia Liq) 30 ml Q12H PRN PO 10/02/17 19:00 (Senokot) 17.2 mg Q12H PRN PO 10/02/17 19:00 (Dulcolax Supp) 10 mg DAILY PRN RECTAL 10/02/17 19:00 (Lactulose Liq) 30 ml DAILY PRN PO 10/02/17 19:00 Sodium Chloride 1,000 ml @ 60 mls/hr [id number] IV 10/02/17 23:00 10/02/17 23:42 A/P Assessment and Plan 1. Atrial fibrillation with controlled rate. CAD with recent stent placed by Dr Ortiz. Continue home meds as appropriate. Patient reports he is not on anticoagulation or medications for his atrial fibrillation secondary to noncompliance Diltiazem x 2 bolused in the ED now HR ion 80s . Monitor on telemetry on Cardizem by mouth, now controlled rate awaiting for his Primary data entry specialist consult. 2. Transaminitis 2/2 EtOH and cholecystitis refused surgery, asymptomatic. Monitor CMP 3. Anxiety Holding home Klonopin/Cymbalta as it is unclear as to when patient last took his home medications 4. Alcohol abuse Thiamine/folate/multivitamin CIWA protocol Monitor for signs of withdrawal 5. Tobacco dependence he states he smokes 10 to 15 cigarettes daily and drinks 5 to 10 beer daily. strongly recommended to stop smoking and drinking alcohol. 6. Obesity strongly recommended diet and exercise. DVT ppx scd/teds/lovenox Discussed Condition With Patient and nurse Discharge Planning Once cleared by data entry specialist. Abiodun Hobbs MD Oct 03, 2017 08:43
[2017-10-03] MEDS ORDERED: DILTIAZEM-CD 180 MG CAP ER PO SCH (09:00)
[2017-10-03] MEDS: SODIUM CHLORIDE 0.9% FLUSH 10 ML FLUSH IV FLUSH SCH ×2 (09:00→20:56)
[2017-10-03] MEDS: CARVEDILOL 3.125 MG TAB PO SCH ×2 (09:01→20:56)
[2017-10-03] MEDS: DOCUSATE SODIUM 50 MG/SENNA 8.6 MG TAB PO SCH ×2 (09:01→20:57)
[2017-10-03] MEDS: FOLIC ACID 1 MG TAB PO SCH (09:01)
[2017-10-03] MEDS: RAMIPRIL 2.5 MG CAP PO SCH (09:01)
[2017-10-03] MEDS: DULoxetine HCl DR 60 MG CAP PO SCH (09:01)
[2017-10-03] MEDS: CLOPIDOGREL 75 MG TAB PO SCH (09:01)
[2017-10-03] MEDS: THIAMINE HCL 100 MG TAB PO SCH (09:01)
[2017-10-03] MEDS: ASPIRIN 81 MG CHEW TAB PO SCH (09:02)
[2017-10-03] MEDS: SODIUM CHLOR 0.9% 1000 ML INJ 1,000 ML IV SCH (14:10)
[2017-10-03] MEDS: ENOXAPARIN SODIUM 40 MG/0.4 ML SYRINGE SQ SCH (17:17)
[2017-10-03 18:37] LABS: TROPONIN I LESS THAN 0.02 NG/ML (0.02-0.05)
[2017-10-03] MEDS: RESP: BUDESONIDE 0.5 MG/2 ML NEB NEB SCH (19:37)
[2017-10-03] MEDS: RESP: IPRATROPIUM 0.5 MG/2.5 ML NEB NEB SCH ×2 (19:37→23:28)
[2017-10-03] MEDS: guaiFENesin E.R. 600 MG TAB PO SCH (20:56)
[2017-10-03] MEDS: clonazePAM 1 MG TAB PO PRN (21:01)
[2017-10-04] VITALS (27 sets, daily range): BP systolic 101–143; BP diastolic 62–85; PULSE 59–96; RESP 16–20; TEMP 97.1–98; O2SAT 93–100
[2017-10-04 00:03] LABS: TROPONIN I LESS THAN 0.02 NG/ML (0.02-0.05)
--- NOTE | 2017-10-04 00:19 | EKG ---
Date Performed: 10/02/2017 Time Performed: 16:34:44 PTAGE: 51 years EKG: ATRIAL FIBRILLATION WITH RAPID VENTRICULAR RESPONSE NONSPECIFIC ST & T-WAVE ABNORMALITY ABN ORMAL ECG PREVIOUS TRACING : 09/25/2017 06.07 Compared to prior tracing, now with non-specific ST/T wave changes DOCTOR: Agustín Bay Interpretating Date/Time 10/04/2017 00:18:27
--- NOTE | 2017-10-04 00:30 | MB ---
cc: Marc Ledezma MD DATE OF CONSULT: 10/03/2017 REASON FOR CONSULTATION: Chest pain and Afib. HISTORY OF PRESENT ILLNESS: The patient is a pleasant 51-year-old gentleman with a history of coronary artery disease who was just in the hospital last week and was stented by Dr. Cage. The patient presents with chest discomfort and rapid atrial fibrillation. He has since been rate controlled and his chest pain has dissipated. He is somewhat of a vague historian and a little bit confused. He denies any active chest pain, shortness of breath, light-headedness or dizziness. PAST MEDICAL HISTORY: 1. Coronary artery disease with recent stent placement. 2. Atrial fibrillation (has not been on anticoagulation, though unclear why previously). 3. Alcohol abuse. 4. Anxiety. CURRENT MEDICATIONS: Aspirin 162 mg daily, Plavix 75 mg daily, Cardizem 180 mg daily with 30 mg p.o. breakthrough, Cymbalta 60 mg daily, folate 1 mg daily, Altace 2.5 mg daily, Coreg 3.125 mg b.i.d. ALLERGIES: SULFA AND FENTANYL. PHYSICAL EXAMINATION: VITAL SIGNS: Afebrile. Pulse 63, respiratory rate 18, blood pressure 103/59, satting 98 on room air. GENERAL: A pleasant gentleman in no distress. NECK: No JVD. LUNGS: Clear to auscultation bilaterally. CARDIOVASCULAR: Irregularly irregular rhythm with a regular rate, no murmurs appreciated. ABDOMEN: Benign. EXTREMITIES: No edema. LABORATORY DATA: White count 8.7, hematocrit 31.2, platelets 229. Sodium 137, potassium 3.9, chloride 104, bicarb 26.7, BUN 17, creatinine 0.83, glucose 92. EKG shows atrial fibrillation at a rate of [address] changes. Current telemetry shows a rate controlled atrial fibrillation. IMPRESSION: 1. Atrial fibrillation. The patient has mildly rapid atrial fibrillation but is now rate controlled. I will consolidate his calcium channel blockers and increase his long acting diltiazem. He is on aspirin and Plavix for his recent stenting. His CHADS-VASc score is relatively low with only one definitive point for hypertension but he does not seem to be a good anticoagulation candidate at this point due to his alcohol and noncompliance. It is unclear to me whether he was even taking his Plavix. 2. Chest pain. The patient is very vague about his chest pain. I will get 3 sets of cardiac enzymes. If nonischemic, will probably continue with medical therapy. Further recommendations based on the clinical course. Thank you again for the opportunity to participate in this patient's care. MD GAVIN Yadav/rt , 04:06 PM , 12:28 AM
[2017-10-04] MEDS: RESP: IPRATROPIUM 0.5 MG/2.5 ML NEB NEB SCH ×6 (03:33→21:34)
[2017-10-04] MEDS: DULoxetine HCl DR 60 MG CAP PO SCH (08:03)
[2017-10-04] MEDS: FOLIC ACID 1 MG TAB PO SCH (08:03)
[2017-10-04] MEDS: ASPIRIN 81 MG CHEW TAB PO SCH (08:03)
[2017-10-04] MEDS: RAMIPRIL 2.5 MG CAP PO SCH (08:03)
[2017-10-04] MEDS: CLOPIDOGREL 75 MG TAB PO SCH (08:03)
[2017-10-04] MEDS: THIAMINE HCL 100 MG TAB PO SCH (08:03)
[2017-10-04] MEDS: guaiFENesin E.R. 600 MG TAB PO SCH ×2 (08:03→20:41)
[2017-10-04] MEDS: CARVEDILOL 3.125 MG TAB PO SCH ×2 (08:04→20:41)
[2017-10-04] MEDS: DOCUSATE SODIUM 50 MG/SENNA 8.6 MG TAB PO SCH ×2 (08:04→20:44)
[2017-10-04] MEDS: SODIUM CHLOR 0.9% 1000 ML INJ 1,000 ML IV SCH ×2 (08:04→20:44)
[2017-10-04] MEDS: DILTIAZEM-CD 240 MG CAP ER PO SCH (08:04)
[2017-10-04] MEDS: SODIUM CHLORIDE 0.9% FLUSH 10 ML FLUSH IV FLUSH SCH ×2 (08:04→20:41)
--- NOTE | 2017-10-04 08:45 | HHI.PR ---
Subjective Remarks This is a pleasant 51 y/o Male sent by the [facility] for evaluation of a near syncopal episode. Per EMS patient had an elevated heart rate, low blood pressure initially staff at the [facility] was unable to palpate a radial pulse. Patient denies any chest pain, abdominal pain, shortness of breath, dizziness. He reports feeling tired, he admits to drinking at least a 12 pack of beer daily. Patient has a history of A. fib with RVR, he is not on any anticoagulation. Per EMS patient is in A. fib with RVR with a rate of 130s-140's. Symptom onset was sudden, symptom severity is moderate to severe. There were no alleviating factors. Patient received 2x bolus of cardizem HR better and briffely HR imprpved. HR was noted in 130-140s again and was placed on cardizem drip. Patient has No sob, doesn't feel palpitations, No nausea. Seen in his bedroom, improving condition, medically better, on Diltiazem by mouth. 10/04: Seen by seafood technology specialist for diagnosis of Atrial fibrillation with controlled rate, increased Diltiazem, continue Aspirin and Plavix for his recent stenting he is not a good candidate for anticoagulation due to alcohol and non compliance, will get three sets of cardiac enzymes if non ischemic to continue medical therapy. not thought the patient will need more workup and signed off the case. Ammonia level elevated, at this time patient is totally alert and oriented. Objective Vital Signs Date Time Temp Pulse Resp B/P (MAP) Pulse Ox O2 Delivery O2 Flow Rate FiO2 10/04/17 06:00 88 10/04/17 05:00 84 10/04/17 04:04 82 16 107/62 (77) 96 10/04/17 04:00 80 10/04/17 03:00 80 10/04/17 01:00 88 10/04/17 00:00 78 10/03/17 23:41 72 16 119/60 (79) 97 10/03/17 23:00 85 10/03/17 22:00 86 10/03/17 21:00 86 10/03/17 20:00 84 10/03/17 19:40 97.6 88 16 107/79 (88) 97 10/03/17 19:40 97 21 10/03/17 19:00 82 10/03/17 18:06 71 10/03/17 17:02 74 10/03/17 16:18 64 10/03/17 15:06 97.2 63 18 103/59 (74) 98 10/03/17 15:06 61 10/03/17 14:07 70 10/03/17 13:08 63 10/03/17 12:03 84 10/03/17 11:23 98 10/03/17 11:23 97.7 84 18 102/53 (69) 99 10/03/17 10:15 128 10/03/17 09:33 98 21 10/03/17 09:27 134 I/O 10/03/17 10/03/17 10/03/17 10/04/17 10/04/17 10/04/17 07:00 15:00 23:00 07:00 15:00 23:00 Intake Total 240 ml 1080 ml 240 ml Output Total 700 ml 450 ml Balance 240 ml 380 ml -210 ml Intake Oral 240 ml 480 ml 240 ml IV Total 600 ml Output Urine Total 700 ml 450 ml # Voids 1 # Bowel Movements 0 0 0 Result Diagram: 10/03/17 0517 10/03/17 0517 Imaging Last Impressions Chest X-Ray 10/02/17 1508 Signed Impressions: Service Date/Time: Monday, October 02, 2017 15:40 - CONCLUSION: Mild compensated cardiomegaly Sriram Solorzano MD FACR Gall Bladder Ultrasound 10/02/17 0000 Signed Impressions: Service Date/Time: Monday, October 02, 2017 16:09 - CONCLUSION: Gallstones in the relatively benign appearing gallbladder Moderate ascites Sriram Solorzano MD FACR Procedures None Other Results Laboratory Tests Test 10/02/17 15:20 10/02/17 17:15 10/03/17 05:17 10/03/17 23:22 Prothrombin Time 12.7 SEC Prothromb Time International Ratio 1.3 RATIO Activated Partial Thromboplast Time 27.8 SEC Blood Urea Nitrogen 14 MG/DL 17 MG/DL Creatinine 0.94 MG/DL 0.83 MG/DL Random Glucose 99 MG/DL 92 MG/DL Total Protein 6.3 GM/DL Albumin 1.9 GM/DL Calcium Level 8.6 MG/DL 8.0 MG/DL Magnesium Level 1.9 MG/DL Alkaline Phosphatase 154 U/L Aspartate Amino Transf (AST/SGOT) 196 U/L Alanine Aminotransferase (ALT/SGPT) 79 U/L Total Bilirubin 5.9 MG/DL Sodium Level 133 MEQ/L 137 MEQ/L Potassium Level 4.6 MEQ/L 3.9 MEQ/L Chloride Level 100 MEQ/L 104 MEQ/L Carbon Dioxide Level 26.9 MEQ/L 26.5 MEQ/L B-Type Natriuretic Peptide 339 PG/ML Lipase 136 U/L Urine Color DARK-BROWN Urine Turbidity CLEAR Urine pH 6.0 Urine Specific [place] 1.028 Urine Protein TRACE mg/dL Urine Glucose (UA) NEG mg/dL Urine Ketones NEG mg/dL Urine Occult Blood NEG Urine Nitrite NEG Urine Bilirubin MOD Urine Urobilinogen GREATER THAN 12.0 MG/DL Urine Leukocyte Esterase NEG Urine WBC 1 /hpf Urine Squamous Epithelial Cells 1 /hpf Urine Hyaline Casts 3 /lpf Urine Mucus FEW /lpf Microscopic Urinalysis Comment CULT NOT INDICATED White Blood Count 8.7 TH/MM3 Red Blood Count 2.94 MIL/MM3 Hemoglobin 10.9 GM/DL Hematocrit 31.2 % Mean Corpuscular Volume 106.3 FL Mean Corpuscular Hemoglobin 37.0 PG Mean Corpuscular Hemoglobin Concent 34.8 % Red Cell Distribution Width 16.0 % Platelet Count 229 TH/MM3 Mean Platelet Volume 8.8 FL Neutrophils (%) (Auto) 66.2 % Lymphocytes (%) (Auto) 21.6 % Monocytes (%) (Auto) 10.0 % Eosinophils (%) (Auto) 1.0 % Basophils (%) (Auto) 1.2 % Neutrophils # (Auto) 5.8 TH/MM3 Lymphocytes # (Auto) 1.9 TH/MM3 Monocytes # (Auto) 0.9 TH/MM3 Eosinophils # (Auto) 0.1 TH/MM3 Basophils # (Auto) 0.1 TH/MM3 CBC Comment DIFF FINAL Differential Comment Anion Gap 7 MEQ/L Estimat Glomerular Filtration Rate 97 ML/MIN Total Creatine Kinase 47 U/L Troponin I LESS THAN 0.02 NG/ML Objective Remarks GENERAL: This is a well-nourished, well-developed patient, in no apparent distress. SKIN: No rashes, ecchymoses or lesions. Cool and dry. HEAD: Atraumatic. Normocephalic. No temporal or scalp tenderness. EYES: Pupils equal round and reactive. Extraocular motions intact. No scleral icterus. No injection or drainage. NECK: Trachea midline. No JVD or lymphadenopathy. Supple CARDIOVASCULAR:Irregularly irregular rate and rhythm without murmurs, gallops, or rubs. RESPIRATORY: Decreased breath sounds bilateral, no wheezing or crackles. GASTROINTESTINAL: Abdomen soft, non-tender, nondistended. No hepato-splenomegaly , or palpable masses. No guarding. MUSCULOSKELETAL: Extremities without clubbing, cyanosis, or edema. NEUROLOGICAL: Awake and alert. No focal deficits. Medications and IVs Current Medications Medications (Trade) Dose Ordered Sig/Marsha Route Start Time Stop Time Status Last Admin (Aspirin Chew) 162 mg DAILY PO 10/03/17 09:00 10/04/17 08:03 (Coreg) 3.125 mg BID PO 10/02/17 21:00 10/04/17 08:04 (KlonoPIN) 1 mg TID PRN PO 10/02/17 18:30 10/03/17 21:01 (Plavix) 75 mg DAILY PO 10/03/17 09:00 10/04/17 08:03 (Cymbalta Dr) 60 mg DAILY PO 10/03/17 09:00 10/04/17 08:03 (Folate) 1 mg DAILY PO 10/03/17 09:00 10/04/17 08:03 (Altace) 2.5 mg DAILY PO 10/03/17 09:00 10/04/17 08:03 (Vitamin B1) 100 mg DAILY PO 10/03/17 09:00 10/04/17 08:03 (Cardizem) 30 mg Q6HR PRN PO 10/02/17 18:30 10/03/17 10:11 Diltiazem HCl 125 mg/Sodium Chloride 125 ml @ 5 mls/hr TITRATE PRN IV 10/02/17 18:45 10/02/17 22:05 (NS Flush) 2 ml UNSCH PRN IV FLUSH 10/02/17 19:00 (NS Flush) 2 ml BID IV FLUSH 10/02/17 21:00 10/04/17 08:04 (Tylenol) 650 mg Q4H PRN PO 10/02/17 19:00 (Zofran Inj) 4 mg Q6H PRN IVP 10/02/17 19:00 (Restoril) 15 mg HS PRN PO 10/02/17 19:00 (Lovenox Inj) 40 mg Q24H SQ 10/02/17 19:00 10/03/17 17:17 (Narcan Inj) 0.4 mg UNSCH PRN IV PUSH 10/02/17 19:00 (Magui-Colace) 1 tab BID PO 10/02/17 21:00 10/04/17 08:04 (Milk Of Magnesia Liq) 30 ml Q12H PRN PO 10/02/17 19:00 (Senokot) 17.2 mg Q12H PRN PO 10/02/17 19:00 (Dulcolax Supp) 10 mg DAILY PRN RECTAL 10/02/17 19:00 (Lactulose Liq) 30 ml DAILY PRN PO 10/02/17 19:00 Sodium Chloride 1,000 ml @ 60 mls/hr [id number] IV 10/02/17 23:00 10/04/17 08:04 (Cardizem Cd) 240 mg DAILY PO 10/04/17 09:00 10/04/17 08:04 (Atrovent Neb) 0.5 mg Q4HR NEB NEB 10/03/17 20:00 10/03/17 19:37 (Pulmicort Respule Neb) 0.5 mg Q12HR NEB NEB 10/03/17 20:00 10/03/17 19:37 (Mucinex Er) 600 mg BID PO 10/03/17 21:00 10/04/17 08:03 A/P Assessment and Plan 1. Atrial fibrillation with controlled rate. CAD with recent stent placed by Dr Ortiz. Continue home meds as appropriate. Patient reports he is not on anticoagulation or medications for his atrial fibrillation secondary to noncompliance Diltiazem x 2 bolused in the ED now HR ion 80s . Monitor on telemetry Seen by seafood technology specialist for diagnosis of Atrial fibrillation with controlled rate, increased Diltiazem, continue Aspirin and Plavix for his recent stenting he is not a good candidate for anticoagulation due to alcohol and non compliance, will get three sets of cardiac enzymes if non ischemic to continue medical therapy. Cardiology signed off the case. 4 2. Transaminitis 2/2 EtOH and cholecystitis refused surgery, asymptomatic. Monitor CMP 3. Anxiety Holding home Klonopin/Cymbalta as it is unclear as to when patient last took his home medications 4. Alcohol abuse Thiamine/folate/multivitamin CIWA protocol Ammonia level elevated started on Lactulose 5. Tobacco dependence he states he smokes 10 to 15 cigarettes daily and drinks 5 to 10 beer daily. strongly recommended to stop smoking and drinking alcohol. 6. Obesity strongly recommended diet and exercise. DVT ppx scd/teds/lovenox Discussed Condition With Patient and nurse Discharge Planning Okay to discharge Home. Abiodun Hobbs MD Oct 04, 2017 08:45
[2017-10-04] MEDS: RESP: BUDESONIDE 0.5 MG/2 ML NEB NEB SCH ×2 (08:57→21:34)
[2017-10-04 09:25] LABS: TROPONIN I LESS THAN 0.02 NG/ML (0.02-0.05)
--- NOTE | 2017-10-04 10:46 | PD.CARD.PN ---
Subjective Subjective Remarks Pt feels well, his chest pain has resolved Objective Medications Current Medications Medications (Trade) Dose Ordered Sig/Marsha Route Start Time Stop Time Status Last Admin (Aspirin Chew) 162 mg DAILY PO 10/03/17 09:00 10/04/17 08:03 (Coreg) 3.125 mg BID PO 10/02/17 21:00 10/04/17 08:04 (KlonoPIN) 1 mg TID PRN PO 10/02/17 18:30 10/03/17 21:01 (Plavix) 75 mg DAILY PO 10/03/17 09:00 10/04/17 08:03 (Cymbalta Dr) 60 mg DAILY PO 10/03/17 09:00 10/04/17 08:03 (Folate) 1 mg DAILY PO 10/03/17 09:00 10/04/17 08:03 (Altace) 2.5 mg DAILY PO 10/03/17 09:00 10/04/17 08:03 (Vitamin B1) 100 mg DAILY PO 10/03/17 09:00 10/04/17 08:03 (Cardizem) 30 mg Q6HR PRN PO 10/02/17 18:30 10/03/17 10:11 Diltiazem HCl 125 mg/Sodium Chloride 125 ml @ 5 mls/hr TITRATE PRN IV 10/02/17 18:45 10/02/17 22:05 (NS Flush) 2 ml UNSCH PRN IV FLUSH 10/02/17 19:00 (NS Flush) 2 ml BID IV FLUSH 10/02/17 21:00 10/04/17 08:04 (Tylenol) 650 mg Q4H PRN PO 10/02/17 19:00 (Zofran Inj) 4 mg Q6H PRN IVP 10/02/17 19:00 (Restoril) 15 mg HS PRN PO 10/02/17 19:00 (Lovenox Inj) 40 mg Q24H SQ 10/02/17 19:00 10/03/17 17:17 (Narcan Inj) 0.4 mg UNSCH PRN IV PUSH 10/02/17 19:00 (Magui-Colace) 1 tab BID PO 10/02/17 21:00 10/04/17 08:04 (Milk Of Magnesia Liq) 30 ml Q12H PRN PO 10/02/17 19:00 (Senokot) 17.2 mg Q12H PRN PO 10/02/17 19:00 (Dulcolax Supp) 10 mg DAILY PRN RECTAL 10/02/17 19:00 (Lactulose Liq) 30 ml DAILY PRN PO 10/02/17 19:00 Sodium Chloride 1,000 ml @ 60 mls/hr [id number] IV 10/02/17 23:00 10/04/17 08:04 (Cardizem Cd) 240 mg DAILY PO 10/04/17 09:00 10/04/17 08:04 (Atrovent Neb) 0.5 mg Q4HR NEB NEB 10/03/17 20:00 10/04/17 08:57 (Pulmicort Respule Neb) 0.5 mg Q12HR NEB NEB 10/03/17 20:00 10/04/17 08:57 (Mucinex Er) 600 mg BID PO 10/03/17 21:00 10/04/17 08:03 Vital Signs / I&O Vital Signs Date Time Temp Pulse Resp B/P (MAP) Pulse Ox O2 Delivery O2 Flow Rate FiO2 10/04/17 08:59 99 21 10/04/17 06:00 88 10/04/17 05:00 84 10/04/17 04:04 82 16 107/62 (77) 96 10/04/17 04:00 80 10/04/17 03:00 80 10/04/17 01:00 88 10/04/17 00:00 78 10/03/17 23:41 72 16 119/60 (79) 97 10/03/17 23:00 85 10/03/17 22:00 86 10/03/17 21:00 86 10/03/17 20:00 84 10/03/17 19:40 97.6 88 16 107/79 (88) 97 10/03/17 19:40 97 21 10/03/17 19:00 82 10/03/17 18:06 71 10/03/17 17:02 74 10/03/17 16:18 64 10/03/17 15:06 97.2 63 18 103/59 (74) 98 10/03/17 15:06 61 10/03/17 14:07 70 10/03/17 13:08 63 10/03/17 12:03 84 10/03/17 11:23 98 10/03/17 11:23 97.7 84 18 102/53 (69) 99 I/O 10/03/17 10/03/17 10/03/17 10/04/17 10/04/17 10/04/17 07:00 15:00 23:00 07:00 15:00 23:00 Intake Total 240 ml 1080 ml 240 ml Output Total 700 ml 450 ml Balance 240 ml 380 ml -210 ml Intake Oral 240 ml 480 ml 240 ml IV Total 600 ml Output Urine Total 700 ml 450 ml # Voids 1 # Bowel Movements 0 0 0 Physical Exam GENERAL: This is a well-nourished, well-developed patient, in no apparent distress. CARDIOVASCULAR: Regular rate and rhythm without murmurs, gallops, or rubs. RESPIRATORY: Clear to auscultation. Breath sounds equal bilaterally. No wheezes , rales, or rhonchi. GASTROINTESTINAL: Abdomen soft, non-tender, nondistended. Normal active bowel sounds MUSCULOSKELETAL: Extremities without clubbing, cyanosis, or edema. NEURO: Alert & Oriented x4 to person, place, time, situation. Moves all ext x4 Laboratory Laboratory Tests Test 10/03/17 17:19 10/03/17 23:22 10/04/17 08:07 Total Creatine Kinase 53 U/L 47 U/L 67 U/L Troponin I LESS THAN 0.02 NG/ML LESS THAN 0.02 NG/ML LESS THAN 0.02 NG/ML Imaging Last Impressions Chest X-Ray 10/02/17 1508 Signed Impressions: Service Date/Time: Monday, October 02, 2017 15:40 - CONCLUSION: Mild compensated cardiomegaly Sriram Solorzano MD FACR Gall Bladder Ultrasound 10/02/17 0000 Signed Impressions: Service Date/Time: Monday, October 02, 2017 16:09 - CONCLUSION: Gallstones in the relatively benign appearing gallbladder Moderate ascites Sriram Solorzano MD FACR Assessment and Plan Problem List: (1) Atrial fibrillation with RVR ICD Codes: I48.91 - Unspecified atrial fibrillation Status: Acute Plan: Rate controlled; on asa/plavix, chads-vas only 1 for HTN so holding off on anticoagulation due to need for anti-platelets; will defer final decision on anticoagulation to interventional cardiology. (2) CAD (coronary artery disease) ICD Codes: I25.10 - Atherosclerotic heart disease of nikolai coronary artery without angina pectoris (3) Unstable angina ICD Codes: I20.0 - Unstable angina Plan: Very vague; asked interventional cardiology to weigh in as to whether he requires repeat cath or medical mgt can be continued. Marc Ledezma MD Oct 04, 2017 10:46
--- NOTE | 2017-10-04 16:28 | PD.CARD.PN ---
Subjective Subjective Remarks completely confused Objective Medications Current Medications Medications (Trade) Dose Ordered Sig/Marsha Route Start Time Stop Time Status Last Admin (Aspirin Chew) 162 mg DAILY PO 10/03/17 09:00 10/04/17 08:03 (Coreg) 3.125 mg BID PO 10/02/17 21:00 10/04/17 08:04 (KlonoPIN) 1 mg TID PRN PO 10/02/17 18:30 10/03/17 21:01 (Plavix) 75 mg DAILY PO 10/03/17 09:00 10/04/17 08:03 (Cymbalta Dr) 60 mg DAILY PO 10/03/17 09:00 10/04/17 08:03 (Folate) 1 mg DAILY PO 10/03/17 09:00 10/04/17 08:03 (Altace) 2.5 mg DAILY PO 10/03/17 09:00 10/04/17 08:03 (Vitamin B1) 100 mg DAILY PO 10/03/17 09:00 10/04/17 08:03 (Cardizem) 30 mg Q6HR PRN PO 10/02/17 18:30 10/03/17 10:11 Diltiazem HCl 125 mg/Sodium Chloride 125 ml @ 5 mls/hr TITRATE PRN IV 10/02/17 18:45 10/02/17 22:05 (NS Flush) 2 ml UNSCH PRN IV FLUSH 10/02/17 19:00 (NS Flush) 2 ml BID IV FLUSH 10/02/17 21:00 10/04/17 08:04 (Tylenol) 650 mg Q4H PRN PO 10/02/17 19:00 (Zofran Inj) 4 mg Q6H PRN IVP 10/02/17 19:00 (Restoril) 15 mg HS PRN PO 10/02/17 19:00 (Lovenox Inj) 40 mg Q24H SQ 10/02/17 19:00 10/03/17 17:17 (Narcan Inj) 0.4 mg UNSCH PRN IV PUSH 10/02/17 19:00 (Magui-Colace) 1 tab BID PO 10/02/17 21:00 10/04/17 08:04 (Milk Of Magnesia Liq) 30 ml Q12H PRN PO 10/02/17 19:00 (Senokot) 17.2 mg Q12H PRN PO 10/02/17 19:00 (Dulcolax Supp) 10 mg DAILY PRN RECTAL 10/02/17 19:00 (Lactulose Liq) 30 ml DAILY PRN PO 10/02/17 19:00 Sodium Chloride 1,000 ml @ 60 mls/hr [id number] IV 10/02/17 23:00 10/04/17 08:04 (Cardizem Cd) 240 mg DAILY PO 10/04/17 09:00 10/04/17 08:04 (Atrovent Neb) 0.5 mg Q4HR NEB NEB 10/03/17 20:00 10/04/17 08:57 (Pulmicort Respule Neb) 0.5 mg Q12HR NEB NEB 10/03/17 20:00 10/04/17 08:57 (Mucinex Er) 600 mg BID PO 10/03/17 21:00 10/04/17 08:03 Vital Signs / I&O Vital Signs Date Time Temp Pulse Resp B/P (MAP) Pulse Ox O2 Delivery O2 Flow Rate FiO2 10/04/17 16:03 72 10/04/17 15:11 71 10/04/17 15:11 98.0 59 18 110/73 (85) 99 10/04/17 14:15 64 10/04/17 13:21 81 10/04/17 12:07 79 10/04/17 11:49 80 10/04/17 11:49 97.6 92 18 101/69 (80) 98 10/04/17 10:00 76 10/04/17 09:05 78 10/04/17 08:59 99 21 10/04/17 08:15 96 10/04/17 08:15 97.6 79 18 113/77 (89) 100 10/04/17 06:00 88 10/04/17 05:00 84 10/04/17 04:04 82 16 107/62 (77) 96 10/04/17 04:00 80 10/04/17 03:00 80 10/04/17 01:00 88 10/04/17 00:00 78 10/03/17 23:41 72 16 119/60 (79) 97 10/03/17 23:00 85 3/10/18 22:00 86 10/03/17 21:00 86 10/03/17 20:00 84 10/03/17 19:40 97.6 88 16 107/79 (88) 97 10/03/17 19:40 97 21 10/03/17 19:00 82 10/03/17 18:06 71 10/03/17 17:02 74 I/O 10/03/17 10/03/17 10/03/17 10/04/17 10/04/17 10/04/17 07:00 15:00 23:00 07:00 15:00 23:00 Intake Total 240 ml 1080 ml 240 ml Output Total 700 ml 450 ml Balance 240 ml 380 ml -210 ml Intake Oral 240 ml 480 ml 240 ml IV Total 600 ml Output Urine Total 700 ml 450 ml # Voids 1 # Bowel Movements 0 0 0 Physical Exam vitals stable heart s1s2 lung clear abdomen obeses ext free Laboratory Laboratory Tests Test 10/03/17 17:19 10/03/17 23:22 10/04/17 08:07 10/04/17 10:57 Total Creatine Kinase 53 U/L 47 U/L 67 U/L Troponin I LESS THAN 0.02 NG/ML LESS THAN 0.02 NG/ML LESS THAN 0.02 NG/ML Ammonia 52 MCMOL/L Assessment and Plan Problem List: (1) Atrial fibrillation with RVR ICD Codes: I48.91 - Unspecified atrial fibrillation Status: Acute (2) CAD (coronary artery disease) ICD Codes: I25.10 - Atherosclerotic heart disease of [place] coronary artery without angina pectoris Plan: I was contacted by Dr Harmon to evaluate patient with no acute changes on ecg repeated enzymes negative no evidence for ischemia denied to me chest pains completely confused I dont think patient will need heart cath at this point unless we have objective evidence for ischemia alcoholic might need GI work up ammonia level significantly elevated will sign off patient might not be a good candidate for anticoagulation (3) Unstable angina ICD Codes: I20.0 - Unstable angina Marianna Soto MD Oct 04, 2017 16:27
[2017-10-04] MEDS: LACTULOSE SYRUP 20 GM/30 ML CUP PO SCH (17:33)
[2017-10-04] MEDS: ENOXAPARIN SODIUM 40 MG/0.4 ML SYRINGE SQ SCH (18:07)
[2017-10-04] MEDS: clonazePAM 1 MG TAB PO PRN (19:59)
[2017-10-05] VITALS (17 sets, daily range): BP systolic 99–115; BP diastolic 59–79; PULSE 72–96; RESP 16; TEMP 98.4; O2SAT 96–98
[2017-10-05] MEDS: RESP: IPRATROPIUM 0.5 MG/2.5 ML NEB NEB SCH ×3 (04:19→11:15)
[2017-10-05] MEDS: RESP: BUDESONIDE 0.5 MG/2 ML NEB NEB SCH (07:31)
--- NOTE | 2017-10-05 08:54 | HHI.PR ---
Subjective Remarks This is a pleasant 51 y/o Male sent [facility] the [facility] for evaluation of a near syncopal episode. Per EMS patient had an elevated heart rate, low blood pressure initially staff at the [facility] was unable to palpate a radial pulse. Patient denies any chest pain, abdominal pain, shortness of breath, dizziness. He reports feeling tired, he admits to drinking at least a 12 pack of beer daily. Patient has a history of A. fib with RVR, he is not on any anticoagulation. Per EMS patient is in A. fib with RVR with a rate of 130s-140's. Symptom onset was sudden, symptom severity is moderate to severe. There were no alleviating factors. Patient received 2x bolus of cardizem HR better and briffely HR imprpved. HR was noted in 130-140s again and was placed on cardizem drip. Patient has No sob, doesn't feel palpitations, No nausea. Seen in his bedroom, improving condition, medically better, on Diltiazem by mouth. 10/04: Seen by commodity management specialist for diagnosis of Atrial fibrillation with controlled rate, increased Diltiazem, continue Aspirin and Plavix for his recent stenting he is not a good candidate for anticoagulation due to alcohol and non compliance, will get three sets of cardiac enzymes if non ischemic to continue medical therapy. not thought the patient will need more workup and signed off the case. Ammonia level elevated, at this time patient is totally alert and oriented. 10/05: Seen in his bedroom, stable alert and oriented, states his Daughter needs to come to pick him up, at this time no signs of withdrawal discussed about his alcohol habit and the need to stop drinking to avoid further damage to his systems. he refused surgery for Cholelithiasis, no nausea, vomit or diarrhea Objective Vital Signs Date Time Temp Pulse Resp B/P (MAP) Pulse Ox O2 Delivery O2 Flow Rate FiO2 10/05/17 07:32 98 10/05/17 06:00 82 10/05/17 05:00 92 10/05/17 04:23 72 16 99/59 (72) 96 10/05/17 04:00 76 10/05/17 03:00 79 10/05/17 02:00 78 10/05/17 01:00 80 10/05/17 00:00 78 10/04/17 23:15 89 20 111/64 (80) 99 3/11/18 23:00 80 10/04/17 22:00 80 10/04/17 21:36 97 10/04/17 21:00 84 10/04/17 20:10 97.1 85 16 118/85 (96) 98 10/04/17 20:00 94 10/04/17 19:00 80 10/04/17 18:05 74 10/04/17 17:15 76 10/04/17 16:03 72 10/04/17 15:11 71 10/04/17 15:11 98.0 59 18 110/73 (85) 99 10/04/17 14:15 64 10/04/17 13:21 81 10/04/17 12:07 79 10/04/17 11:49 80 10/04/17 11:49 97.6 92 18 101/69 (80) 98 10/04/17 10:00 76 10/04/17 09:05 78 10/04/17 08:59 99 21 I/O 10/04/17 10/04/17 10/04/17 10/05/17 10/05/17 10/05/17 07:00 15:00 23:00 07:00 15:00 23:00 Intake Total 240 ml 480 ml 480 ml Output Total 450 ml 850 ml 400 ml Balance -210 ml -370 ml 80 ml Intake Oral 240 ml 480 ml 480 ml Output Urine Total 450 ml 850 ml 400 ml # Bowel Movements 0 0 1 Result Diagram: 10/03/17 0517 10/03/17 0517 Imaging Last Impressions Chest X-Ray 10/02/17 1508 Signed Impressions: Service Date/Time: Monday, October 02, 2017 15:40 - CONCLUSION: Mild compensated cardiomegaly Sriram Solorzano MD FACR Gall Bladder Ultrasound 10/02/17 0000 Signed Impressions: Service Date/Time: Monday, October 02, 2017 16:09 - CONCLUSION: Gallstones in the relatively benign appearing gallbladder Moderate ascites Sriram Solorzano MD FACR Procedures None Other Results Laboratory Tests Test 10/02/17 15:20 10/02/17 17:15 10/03/17 05:17 10/04/17 08:07 Prothrombin Time 12.7 SEC Prothromb Time International Ratio 1.3 RATIO Activated Partial Thromboplast Time 27.8 SEC Blood Urea Nitrogen 14 MG/DL 17 MG/DL Creatinine 0.94 MG/DL 0.83 MG/DL Random Glucose 99 MG/DL 92 MG/DL Total Protein 6.3 GM/DL Albumin 1.9 GM/DL Calcium Level 8.6 MG/DL 8.0 MG/DL Magnesium Level 1.9 MG/DL Alkaline Phosphatase 154 U/L Aspartate Amino Transf (AST/SGOT) 196 U/L Alanine Aminotransferase (ALT/SGPT) 79 U/L Total Bilirubin 5.9 MG/DL Sodium Level 133 MEQ/L 137 MEQ/L Potassium Level 4.6 MEQ/L 3.9 MEQ/L Chloride Level 100 MEQ/L 104 MEQ/L Carbon Dioxide Level 26.9 MEQ/L 26.5 MEQ/L B-Type Natriuretic Peptide 339 PG/ML Lipase 136 U/L Urine Color DARK-BROWN Urine Turbidity CLEAR Urine pH 6.0 Urine Specific [place] 1.028 Urine Protein TRACE mg/dL Urine Glucose (UA) NEG mg/dL Urine Ketones NEG mg/dL Urine Occult Blood NEG Urine Nitrite NEG Urine Bilirubin MOD Urine Urobilinogen GREATER THAN 12.0 MG/DL Urine Leukocyte Esterase NEG Urine WBC 1 /hpf Urine Squamous Epithelial Cells 1 /hpf Urine Hyaline Casts 3 /lpf Urine Mucus FEW /lpf Microscopic Urinalysis Comment CULT NOT INDICATED White Blood Count 8.7 TH/MM3 Red Blood Count 2.94 MIL/MM3 Hemoglobin 10.9 GM/DL Hematocrit 31.2 % Mean Corpuscular Volume 106.3 FL Mean Corpuscular Hemoglobin 37.0 PG Mean Corpuscular Hemoglobin Concent 34.8 % Red Cell Distribution Width 16.0 % Platelet Count 229 TH/MM3 Mean Platelet Volume 8.8 FL Neutrophils (%) (Auto) 66.2 % Lymphocytes (%) (Auto) 21.6 % Monocytes (%) (Auto) 10.0 % Eosinophils (%) (Auto) 1.0 % Basophils (%) (Auto) 1.2 % Neutrophils # (Auto) 5.8 TH/MM3 Lymphocytes # (Auto) 1.9 TH/MM3 Monocytes # (Auto) 0.9 TH/MM3 Eosinophils # (Auto) 0.1 TH/MM3 Basophils # (Auto) 0.1 TH/MM3 CBC Comment DIFF FINAL Differential Comment Anion Gap 7 MEQ/L Estimat Glomerular Filtration Rate 97 ML/MIN Total Creatine Kinase 67 U/L Troponin I LESS THAN 0.02 NG/ML Test 10/04/17 10:57 Ammonia 52 MCMOL/L Objective Remarks GENERAL: Well-developed patient, in no apparent distress. SKIN: No rashes, ecchymoses or lesions. Cool and dry. HEAD: Atraumatic. Normocephalic. No temporal or scalp tenderness. EYES: Pupils equal round and reactive. Extraocular motions intact. No scleral icterus. No injection or drainage. NECK: Trachea midline. No JVD or lymphadenopathy. Supple CARDIOVASCULAR:Irregularly irregular rate and rhythm without murmurs, gallops, or rubs. RESPIRATORY: Decreased breath sounds bilateral, no wheezing or crackles. GASTROINTESTINAL: Abdomen soft, non-tender, moderate distension. No guarding. MUSCULOSKELETAL: Extremities without clubbing, cyanosis, or edema. NEUROLOGICAL: Awake and alert. No focal deficits. Medications and IVs Current Medications Medications (Trade) Dose Ordered Sig/Marsha Route Start Time Stop Time Status Last Admin (Aspirin Chew) 162 mg DAILY PO 10/03/17 09:00 10/04/17 08:03 (Coreg) 3.125 mg BID PO 10/02/17 21:00 10/04/17 20:41 (KlonoPIN) 1 mg TID PRN PO 10/02/17 18:30 10/04/17 19:59 (Plavix) 75 mg DAILY PO 10/03/17 09:00 10/04/17 08:03 (Cymbalta Dr) 60 mg DAILY PO 10/03/17 09:00 10/04/17 08:03 (Folate) 1 mg DAILY PO 10/03/17 09:00 10/04/17 08:03 (Altace) 2.5 mg DAILY PO 10/03/17 09:00 10/04/17 08:03 (Vitamin B1) 100 mg DAILY PO 10/03/17 09:00 10/04/17 08:03 (Cardizem) 30 mg Q6HR PRN PO 10/02/17 18:30 10/03/17 10:11 Diltiazem HCl 125 mg/Sodium Chloride 125 ml @ 5 mls/hr TITRATE PRN IV 10/02/17 18:45 10/02/17 22:05 (NS Flush) 2 ml UNSCH PRN IV FLUSH 10/02/17 19:00 (NS Flush) 2 ml BID IV FLUSH 10/02/17 21:00 10/04/17 20:41 (Tylenol) 650 mg Q4H PRN PO 10/02/17 19:00 (Zofran Inj) 4 mg Q6H PRN IVP 10/02/17 19:00 (Restoril) 15 mg HS PRN PO 10/02/17 19:00 (Lovenox Inj) 40 mg Q24H SQ 10/02/17 19:00 10/04/17 18:07 (Narcan Inj) 0.4 mg UNSCH PRN IV PUSH 10/02/17 19:00 (Magui-Colace) 1 tab BID PO 10/02/17 21:00 10/04/17 08:04 (Milk Of Magnesia Liq) 30 ml Q12H PRN PO 10/02/17 19:00 (Senokot) 17.2 mg Q12H PRN PO 10/02/17 19:00 (Dulcolax Supp) 10 mg DAILY PRN RECTAL 10/02/17 19:00 (Lactulose Liq) 30 ml DAILY PRN PO 10/02/17 19:00 Sodium Chloride 1,000 ml @ 60 mls/hr [id number] IV 10/02/17 23:00 10/04/17 08:04 (Cardizem Cd) 240 mg DAILY PO 10/04/17 09:00 10/04/17 08:04 (Atrovent Neb) 0.5 mg Q4HR NEB NEB 10/03/17 20:00 10/05/17 07:31 (Pulmicort Respule Neb) 0.5 mg Q12HR NEB NEB 10/03/17 20:00 10/05/17 07:31 (Mucinex Er) 600 mg BID PO 10/03/17 21:00 10/04/17 20:41 (Lactulose Liq) 30 ml TID PO 10/04/17 18:00 10/04/17 17:33 A/P Assessment and Plan 1. Atrial fibrillation with controlled rate. CAD with recent stent placed by Dr Ortiz. Continue home meds as appropriate. Patient reports he is not on anticoagulation or medications for his atrial fibrillation secondary to noncompliance Diltiazem x 2 bolused in the ED now HR ion 80s . Monitor on telemetry Seen by commodity management specialist for diagnosis of Atrial fibrillation with controlled rate, increased Diltiazem, continue Aspirin and Plavix for his recent stenting he is not a good candidate for anticoagulation due to alcohol and non compliance, will get three sets of cardiac enzymes if non ischemic to continue medical therapy. Cardiology signed off the case. 2. Transaminitis 2/2 EtOH and cholecystitis refused surgery, asymptomatic. Monitor CMP 3. Anxiety Holding home Klonopin/Cymbalta as it is unclear as to when patient last took his home medications 4. Alcohol abuse Thiamine/folate/multivitamin CIWA protocol Ammonia level elevated started on Lactulose and will continue as outpatient. strongly recommended to stop behavior. 5. Tobacco dependence he states he smokes 10 to 15 cigarettes daily and drinks 5 to 10 beer daily. strongly recommended to stop smoking and drinking alcohol. 6. Obesity strongly recommended diet and exercise. DVT ppx scd/teds/lovenox Discussed Condition With patient and nurse, will go home with [facility] for PT. also asked for skilled nurse. Discharge Planning Okay to discharge Home on [facility] for PT. Abiodun Hobbs MD Oct 05, 2017 08:54
[2017-10-05] MEDS: ASPIRIN 81 MG CHEW TAB PO SCH (09:49)
[2017-10-05] MEDS: RAMIPRIL 2.5 MG CAP PO SCH (09:49)
[2017-10-05] MEDS: CLOPIDOGREL 75 MG TAB PO SCH (09:49)
[2017-10-05] MEDS: FOLIC ACID 1 MG TAB PO SCH (09:50)
[2017-10-05] MEDS: guaiFENesin E.R. 600 MG TAB PO SCH (09:50)
[2017-10-05] MEDS: DILTIAZEM-CD 240 MG CAP ER PO SCH (09:50)
[2017-10-05] MEDS: THIAMINE HCL 100 MG TAB PO SCH (09:50)
[2017-10-05] MEDS: CARVEDILOL 3.125 MG TAB PO SCH (09:50)
[2017-10-05] MEDS: LACTULOSE SYRUP 20 GM/30 ML CUP PO SCH (09:54)
[2017-10-05] MEDS: DULoxetine HCl DR 60 MG CAP PO SCH (09:54)
[2017-10-05] MEDS: DOCUSATE SODIUM 50 MG/SENNA 8.6 MG TAB PO SCH (09:54)
[2017-10-05] MEDS: SODIUM CHLORIDE 0.9% FLUSH 10 ML FLUSH IV FLUSH SCH (09:55)
[2017-10-05] MEDS ORDERED: guaiFENesin ER PO (11:07)
[2017-10-05] MEDS ORDERED: DILT240C44 PO (11:07)
[2017-10-05] MEDS ORDERED: Lactulose Liq PO (11:07)
--- NOTE | 2017-10-05 11:10 | HHI.FF ---
Face to Face Verification Diagnosis: (1) CAD (coronary artery disease) (2) ETOH abuse (3) Atrial fibrillation with RVR Physical Therapy Order: Evaluate and Treat, Improve ambulation, Strength and gait training Home Health Nursing Order: Medical education Signs/symptoms of disease process Medication education-adverse effect Nursing assessment with vital signs I have seen patient Geovanny Jiménez on 10/05/17. My clinical findings support the need for the requested home health care services because: Ltd mobility - disease progression I certify that my clinical findings support that this patient is homebound because: Unsteady gait/balance Unsafe to leave home unassisted Abiodun Hobbs MD Oct 05, 2017 11:10
--- NOTE | 2017-10-05 11:17 | HHI.DS ---
Discharge Summary Admission Date Oct 02, 2017 at 18:27 Discharge Date: Oct 05, 2017 Admitting Diagnosis AFIB W/ RVR, TRANSAMINITIS (1) Alcoholic hepatitis ICD Code: K70.10 - Alcoholic hepatitis without ascites Diagnosis: Principal (2) CAD (coronary artery disease) ICD Code: I25.10 - Atherosclerotic heart disease of [place] coronary artery without angina pectoris Diagnosis: Principal (3) ETOH abuse ICD Code: F10.10 - Alcohol abuse, uncomplicated Diagnosis: Principal Status: Acute (4) Atrial fibrillation with RVR ICD Code: I48.91 - Unspecified atrial fibrillation Diagnosis: Principal Status: Acute Procedures None Brief History - From Admission Patient is a 51-year-old male sent by the [facility] for evaluation of a near syncopal episode. Per EMS patient had an elevated heart rate, low blood pressure initially staff at the [facility] was unable to palpate a radial pulse. Patient denies any chest pain, abdominal pain, shortness of breath, dizziness. He reports feeling tired, he admits to drinking at least a 12 pack of beer daily. Patient has a history of A. fib with RVR, he is not on any anticoagulation. Per EMS patient is in A. fib with RVR with a rate of 130s-140's. Symptom onset was sudden, symptom severity is moderate to severe. There were no alleviating factors. Patient received 2x bolus of cardizem HR better and briffely HR imprpved. HR was noted in 130-140s again and was placed on cardizem drip. Patient has No sob, doesn't feel palpitations, No nausea. CBC/BMP: 10/03/17 0517 10/03/17 0517 Significant Findings Laboratory Tests Test 10/02/17 15:20 10/02/17 17:15 10/03/17 05:17 10/03/17 17:19 Red Blood Count 3.29 MIL/MM3 (4.50-5.90) 2.94 MIL/MM3 (4.50-5.90) Hemoglobin 12.2 GM/DL (13.0-17.0) 10.9 GM/DL (13.0-17.0) Hematocrit 35.3 % (39.0-51.0) 31.2 % (39.0-51.0) Mean Corpuscular Volume 107.3 FL (80.0-100.0) 106.3 FL (80.0-100.0) Mean Corpuscular Hemoglobin 36.9 PG (27.0-34.0) 37.0 PG (27.0-34.0) Neutrophils (%) (Auto) 75.2 % (16.0-70.0) Monocytes (%) (Auto) 8.9 % (0.0-8.0) 10.0 % (0.0-8.0) Prothrombin Time 12.7 SEC (9.8-11.6) Total Protein 6.3 GM/DL (6.4-8.2) Albumin 1.9 GM/DL (3.4-5.0) Alkaline Phosphatase 154 U/L (45-117) Aspartate Amino Transf (AST/SGOT) 196 U/L (15-37) Alanine Aminotransferase (ALT/SGPT) 79 U/L (12-78) Total Bilirubin 5.9 MG/DL (0.2-1.0) Sodium Level 133 MEQ/L (136-145) Estimat Glomerular Filtration Rate 84 ML/MIN (>89) B-Type Natriuretic Peptide 339 PG/ML (0-100) Urine Color DARK-BROWN (YELLW/STRAW) Urine Bilirubin MOD (NEG) Urine Urobilinogen GREATER THAN 12.0 MG/DL Urine Mucus FEW /lpf (OCC) Calcium Level 8.0 MG/DL (8.5-10.1) Troponin I LESS THAN 0.02 NG/ML Test 10/03/17 23:22 10/04/17 08:07 10/04/17 10:57 Troponin I LESS THAN 0.02 NG/ML LESS THAN 0.02 NG/ML Ammonia 52 MCMOL/L (11-32) Imaging Last Impressions Chest X-Ray 10/02/17 1508 Signed Impressions: Service Date/Time: Monday, October 02, 2017 15:40 - CONCLUSION: Mild compensated cardiomegaly Sriram Solorzano MD FACR Gall Bladder Ultrasound 10/02/17 0000 Signed Impressions: Service Date/Time: Monday, October 02, 2017 16:09 - CONCLUSION: Gallstones in the relatively benign appearing gallbladder Moderate ascites Sriram Solorzano MD FACR PE at Discharge GENERAL: Well-developed patient, in no apparent distress. SKIN: No rashes, ecchymoses or lesions. Cool and dry. HEAD: Atraumatic. Normocephalic. No temporal or scalp tenderness. EYES: Pupils equal round and reactive. Extraocular motions intact. No scleral icterus. No injection or drainage. NECK: Trachea midline. No JVD or lymphadenopathy. Supple CARDIOVASCULAR:Irregularly irregular rate and rhythm without murmurs, gallops, or rubs. RESPIRATORY: Decreased breath sounds bilateral, no wheezing or crackles. GASTROINTESTINAL: Abdomen soft, non-tender, moderate distension. No guarding. MUSCULOSKELETAL: Extremities without clubbing, cyanosis, or edema. NEUROLOGICAL: Awake and alert. No focal deficits. Hospital Course This is a pleasant 51 y/o Male sent by the [facility] for evaluation of a near syncopal episode. Per EMS patient had an elevated heart rate, low blood pressure initially staff at the [facility] was unable to palpate a radial pulse. Patient denies any chest pain, abdominal pain, shortness of breath, dizziness. He reports feeling tired, he admits to drinking at least a 12 pack of beer daily. Patient has a history of A. fib with RVR, he is not on any anticoagulation. Per EMS patient is in A. fib with RVR with a rate of 130s-140's. Symptom onset was sudden, symptom severity is moderate to severe. There were no alleviating factors. Patient received 2x bolus of cardizem HR better and briffely HR imprpved. HR was noted in 130-140s again and was placed on cardizem drip. Patient has No sob, doesn't feel palpitations, No nausea. Seen in his bedroom, improving condition, medically better, on Diltiazem by mouth. 10/04: Seen by technical documentation specialist for diagnosis of Atrial fibrillation with controlled rate, increased Diltiazem, continue Aspirin and Plavix for his recent stenting he is not a good candidate for anticoagulation due to alcohol and non compliance, will get three sets of cardiac enzymes if non ischemic to continue medical therapy. not thought the patient will need more workup and signed off the case. Ammonia level elevated, at this time patient is totally alert and oriented. 10/05: Seen in his bedroom, stable alert and oriented, states his Daughter needs to come to pick him up, at this time no signs of withdrawal discussed about his alcohol habit and the need to stop drinking to avoid further damage to his systems. he refused surgery for Cholelithiasis, no nausea, vomit or diarrhea Assessment and Plan 1. Atrial fibrillation with controlled rate. CAD with recent stent placed by Dr Ortiz. Continue home meds as appropriate. Patient reports he is not on anticoagulation or medications for his atrial fibrillation secondary to noncompliance Diltiazem x 2 bolused in the ED now HR ion 80s . Monitor on telemetry Seen by technical documentation specialist for diagnosis of Atrial fibrillation with controlled rate, increased Diltiazem, continue Aspirin and Plavix for his recent stenting he is not a good candidate for anticoagulation due to alcohol and non compliance, will get three sets of cardiac enzymes if non ischemic to continue medical therapy. Cardiology signed off the case. 2. Transaminitis 2/2 EtOH and cholecystitis refused surgery, asymptomatic. Monitor CMP 3. Anxiety Holding home Klonopin/Cymbalta as it is unclear as to when patient last took his home medications 4. Alcohol abuse Thiamine/folate/multivitamin CIWA protocol Ammonia level elevated started on Lactulose and will continue as outpatient. strongly recommended to stop behavior. 5. Tobacco dependence he states he smokes 10 to 15 cigarettes daily and drinks 5 to 10 beer daily. strongly recommended to stop smoking and drinking alcohol. 6. Obesity strongly recommended diet and exercise. Discussed with his Daughter Miss Jenn Jiménez today the patient is oriented, she states she brought in his Father with her Brother to [place] from [place] that happened one week ago and they will supervise his father not to continue drinking alcohol and smoking Tobacco he will go home on [facility] for PT and skilled nurse. will continue Lactulose on daily bases. DVT ppx scd/teds/lovenox Discussed Condition With patient and nurse, will go home with [facility] for PT. also asked for skilled nurse. Discharge Planning Okay to discharge Home on [facility] for PT. Pt Condition on Discharge: Good Discharge Disposition: Disch w/ Home Health Serv Discharge Time: > 30 minutes Discharge Instructions DIET: Follow Instructions for: Heart Healthy Diet Activities you can perform: Regular-No Restrictions Abiodun Hobbs MD Oct 05, 2017 11:17
== END 2017-10-05 14:11 | disposition home health service (06) | DRG 309 ==
LOC: NEPE 13:28 → NEDA 18:27 → HCIS 10-03 00:06
PROVIDERS: ADMIT Internal Medicine; ATTEND Internal Medicine
DX: I48.91 Unspecified atrial fibrillation (principal); K80.10 Calculus of gallbladder with chronic cholecystitis without obstruction; I11.9 Hypertensive heart disease without heart failure; I95.9 Hypotension, unspecified; K70.10 Alcoholic hepatitis without ascites; I25.110 Atherosclerotic heart disease of native coronary artery with unstable angina pectoris; F32.9 Major depressive disorder, single episode, unspecified; R55 Syncope and collapse; F10.10 Alcohol abuse, uncomplicated; R74.0 Nonspecific elevation of levels of transaminase and lactic acid dehydrogenase [LDH]; F41.9 Anxiety disorder, unspecified; E78.00 Pure hypercholesterolemia, unspecified; Z96.643 Presence of artificial hip joint, bilateral; Z96.651 Presence of right artificial knee joint; E66.9 Obesity, unspecified; F17.210 Nicotine dependence, cigarettes, uncomplicated; Z79.82 Long term (current) use of aspirin; Z95.5 Presence of coronary angioplasty implant and graft; Z91.19 Patient's noncompliance with other medical treatment and regimen; Z79.02 Long term (current) use of antithrombotics/antiplatelets
CPT/HCPCS: 71045; 76705; 80048; 80053; 81001; 82140; 82550; 83690; 83735; 83880; 84484; 85025; 85610; 85730; 93005; 94150; 94640; 94664; 96361; 96374; 96376; J1650; J7030; J7626; J7644